=== PATIENT | male | born 1950 | race Caucasian/White ===

== ENCOUNTER 2022-06-01 07:41 | Observation (INO) | payer MEDICARE, SELFPAY ==
[2022-06-01] VITALS (65 sets, daily range): BP systolic 121–182; BP diastolic 74–131; PULSE 78–116; RESP 6–31; TEMP 36.5–36.6; O2SAT 85–97; BMI 36.6
--- NOTE | 2022-06-01 07:48 | ED_ITS ---
HPI - SOB/Dyspnea General: Chief Complaint: Shortness of Breath/Dyspnea Stated Complaint: SOB Time Seen by Provider: 06/01/22 07:43 Source: patient Mode of arrival: ambulatory History of Present Illness: HPI Narrative: 71-year-old male presents emergency room complaining shortness of breath. Discharge Plan Discharge Condition: Stable Coding Level of Care Code ED Nursing Faculty for Evelyn Zamora
--- NOTE | 2022-06-01 07:49 | ECG_ITS ---
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 Measurements Intervals [place] Rate: 157 P: [place]: QRS: -49 QRSD: 118 T: 73 QT: 309 QTc: 499 Interpretive Statements ATRIAL FIBRILLATION WITH RAPID VENTRICULAR RESPONSE WITH ABERRANT CONDUCTION OR VENTRICULAR PREMATURE COMPLEXES LEFT AXIS DEVIATION [QRS AXIS < -30] SEPTAL MYOCARDIAL INFARCTION , OF INDETERMINATE AGE [40+ ms Q WAVE IN V1/V2] CRITICAL TEST RESULT No previous ECG available for comparison Electronically Signed On 06-01-2022 8:04:16 CDT by Padmaja Johnson M.D. [id number]
--- NOTE | 2022-06-01 08:07 | W.ED.ARRPALP ---
HPI - Arrhythmia/Palpitations General: Chief Complaint: Shortness of Breath/Dyspnea Stated Complaint: SOB Time Seen by Provider: 06/01/22 07:43 Source: patient Mode of arrival: ambulatory Limitations: no limitations History of Present Illness: 71 year-old male presents emergency room complaining of rapid heart rate. Patient has some mild chest comfort but has no significant shortness of breath. Denies any fever sweats chills no orthopnea. Symptoms began yesterday. He is on anticoagulant for previous DVT he denies any known history of previous atrial fibrillation or other arrhythmia MD complaint: rapid heart beat and heart racing Onset (ago): day(s) (1) Duration: constant Severity: severe Context: occurred during rest Associated symptoms: Deny anxiety, cough, diaphoresis, muscle cramps, nausea, paresthesias, pre-syncope, sense of impending doom, short of breath, syncope or vomiting Review of Systems Const: Denies: diaphoresis ENMT: Denies: throat pain, ear or mastoid pain, nasal discharge or nasal congestion Card: Reports: chest pain, palpitations and irregular heart rhythm; Denies: edema, swelling of feet/ankles, syncope or pre-syncope Resp: Denies: dyspnea, productive cough or non-productive cough GI: Denies: abdominal pain, nausea or vomiting : Denies: flank pain, dysuria, urinary frequency or urinary urgency Musc: Denies: muscle cramps Skin/Breast: Denies: rash or pruritus Psych: Denies: anxiety PFSH ED PFSH: Medical History Cognitive decline Colon cancer Depression Diabetes mellitus type 2 in obese Gout Hyperlipidemia Hypertension Pulmonary embolism Surgical History History of cholecystectomy History of lung surgery Bronchogenic cyst removal History of tonsillectomy Family History Other Cancer Social History Smoking and tobacco status: never smoked Alcohol intake: never Physical Exam Const: COMMON NORMALS: no acute distress GENERAL APPEARANCE: cooperative and comfortable ORIENTATION/CONSCIOUSNESS: Yes awake, Yes oriented to person, Yes oriented to place and Yes oriented to time HENMT: COMMON NORMALS: normocephalic, atraumatic and hearing grossly normal bilaterally HEAD & SCALP: normocephalic and atraumatic Resp: COMMON NORMALS: normal respiratory effort, No retractions, No use of accessory muscles and clear to auscultation bilaterally AUSCULTATION: clear to auscultation bilaterally Cardio: COMMON NORMALS: No murmurs present (Cardio) RATE: tachycardic RHYTHM: abnormal rhythm irregularly irregular GI: COMMON NORMALS: Soft to palpation and No hepatosplenomegaly present AUSCULTATION: Yes normoactive bowel sounds PALPATION: Yes Soft to palpation, No Tenderness to palpation present (GI), No Guarding due to palpation present (GI) and Yes No hepatosplenomegaly present Extremity: COMMON NORMALS: normal to inspection, capillary refill normal, no clubbing, cyanosis or edema, no calf tenderness and no pedal edema Neuro: SENSORIUM/ORIENTATION: Yes oriented to person, Yes oriented to place and Yes oriented to time Skin: COMMON NORMALS: no rashes or lesions noted GENERAL SKIN EXAM: no rashes or lesions noted Course Vital Signs: Vital signs: Vital Signs Temperature 97.8 F 06/01/22 07:43 Pulse Rate 87 06/01/22 10:30 Respiratory Rate 27 H 06/01/22 10:30 Blood Pressure 145/90 06/01/22 10:30 Pulse Oximetry 95 06/01/22 10:30 Oxygen Delivery Me thod 06/01/22 09:45 Oxygen Flow Rate 1 06/01/22 09:45 MDM - Arrhythmia/Palpitations Medical Decision Making Initial troponin 29. He has minimal chest discomfort his symptoms are much better after his rate was decreased. We will go ahead and admit him discussed with hospitalist orders being written by the hospitalist. Medical Records I reviewed the patient's medical records. Lab Data I reviewed the patient's lab results. : 06/01/22 08:10 06/01/22 08:10 Radiology Impressions Chest X-Ray 06/01/22 09:09 IMPRESSION: No acute cardiopulmonary abnormality. Laboratory Results WBC 11.1 10^3/uL (4.0-10.0) H 06/01/22 08:10 RBC 5.48 10^6/uL (4.1-5.3) H 06/01/22 08:10 Hgb 15.6 g/dL (11.7-16.6) 06/01/22 08:10 Hct 47.5 % (42.0-52.0) 06/01/22 08:10 MCV 86.7 fl (80-94) 06/01/22 08:10 MCH 28.5 pg (28.0-34.0) 06/01/22 08:10 MCHC 32.8 g/dL (30.0-36.0) 06/01/22 08:10 RDW 13.7 % (12.1-15.1) 06/01/22 08:10 Plt Count 249 10^3/cmm (130-400) 06/01/22 08:10 MPV 11.6 fL (7.4-10.4) H 06/01/22 08:10 Neut % (Auto) 79.4 % 06/01/22 08:10 Lymph % (Auto) 13.2 % 06/01/22 08:10 [place] % (Auto) 5.8 % 06/01/22 08:10 Eos % (Auto) 0.8 % 06/01/22 08:10 Baso % (Auto) 0.4 % 06/01/22 08:10 Neut # (Auto) 8.82 10^3/uL (1.8-7.7) H 06/01/22 08:10 Lymph # (Auto) 1.5 10^3/uL (0.8-4.8) 06/01/22 08:10 [place] # (Auto) 0.7 10^3/uL (0.2-0.9) 06/01/22 08:10 Eos # (Auto) 0.1 10^3/uL (0.0-0.8) 06/01/22 08:10 Baso # (Auto) 0.1 10^3/uL (0.0-0.1) 06/01/22 08:10 Nucleated RBC % (auto) 0 % 06/01/22 08:10 Nucleated RBCs # 0.0 /100WBC 06/01/22 08:10 Sodium 141 mmol/L (136-145) 06/01/22 08:10 Potassium 3.7 mmol/L (3.5-5.1) 06/01/22 08:10 Chloride 103 mmol/L (98-107) 06/01/22 08:10 Carbon Dioxide 24 mmol/L (22-29) 06/01/22 08:10 Anion Gap 17.7 (5-19) 06/01/22 08:10 BUN 15 mg/dL (8-23) 06/01/22 08:10 Creatinine 0.9 mg/dL (0.7-1.2) 06/01/22 08:10 GFR Calculation 83.7 mL/min (90-130) L 06/01/22 08:10 Glucose 175 mg/dL (65-115) H 06/01/22 08:10 Estimat Average Glucose 146 06/01/22 08:10 Hemoglobin A1c 6.7 % (4.0-6.0) H 06/01/22 08:10 Calculated Osmolality 297 mOsm/kg (285-295) H 06/01/22 08:10 Calcium 9.2 mg/dL (8.5-10.5) 06/01/22 08:10 Magnesium 2.0 mg/dL (1.7-2.3) 06/01/22 08:10 Total Bilirubin 0.8 mg/dL (0.15-1.2) 06/01/22 08:10 AST 19 U/L (0-40) 06/01/22 08:10 ALT 19 U/L (0-41) 06/01/22 08:10 Alkaline Phosphatase 103 U/L (40-130) 06/01/22 08:10 Troponin T Baseline 29 ng/L (0-15) H 06/01/22 08:10 Troponin T 120 Minute 26.26 ng/L (0-15) H 06/01/22 10:09 Delta Troponin T -2.74 ABS# (0-10) L 06/01/22 10:09 Total Protein 6.7 g/dL (6.6-8.7) 06/01/22 08:10 Albumin 4.4 g/dL (3.5-5.2) 06/01/22 08:10 Globulin 2.3 g/dL (1.3-4.6) 06/01/22 08:10 TSH 4.76 uIU/mL (0.27-4.20) H 06/01/22 08:10 Discharge Plan Discharge Condition: Stable Prescriptions: No Action losartan 50 mg tablet 50 mg PO DAILY donepezil 10 mg tablet 10 mg PO BEDTIME potassium chloride 10 mEq tablet extended release 10 meq PO DAILY amlodipine 5 mg tablet 5 mg PO DAILY simvastatin 40 mg tablet 40 mg PO BEDTIME gemfibrozil 600 mg tablet 600 mg PO BID triamterene-hydrochlorothiazid 37.5-25 mg tablet 1 tab PO DAILY allopurinol 300 mg tablet 300 mg PO DAILY fluoxetine 20 mg capsule 20 mg PO DAILY Xarelto 20 mg tablet 20 mg PO BEDTIME [facility] For Men 50 Plus Vit Pack 1 packet PO QAM metformin 500 mg tablet See Rx Instructions .ROUTE .COMPLEX Rx Instructions: 1000mg po qam and 500mg po bedtime Coding Level of Care Code ED Certified Pharmacy Tech for Evelyn Zamora
[2022-06-01 08:16] LABS: Basophils # 0.1 10^3/uL (0.0-0.1); Basophils % 0.4 %; Eosinophils # 0.1 10^3/uL (0.0-0.8); Eosinophils % 0.8 %; Hematocrit 47.5 % (42.0-52.0); Hemoglobin 15.6 g/dL (11.7-16.6); Lymphocytes # 1.5 10^3/uL (0.8-4.8); Lymphocytes % 13.2 %; Mean Corpuscular HGB Conc 32.8 g/dL (30.0-36.0); Mean Corpuscular Hemoglobin 28.5 pg (28.0-34.0); Mean Corpuscular Volume 86.7 fl (80-94); Mean Platelet Volume 11.6 fL (7.4-10.4); Monocytes # 0.7 10^3/uL (0.2-0.9); Monocytes % 5.8 %; Neutrophils # 8.82 10^3/uL (1.8-7.7); Neutrophils % 79.4 %; Nucleated Red Blood Cells % 0 %; Platelet Count 249 10^3/cmm (130-400); Red Blood Count 5.48 10^6/uL (4.1-5.3); Red Cell Distribution Width 13.7 % (12.1-15.1); White Blood Count 11.1 10^3/uL (4.0-10.0)
[2022-06-01] MEDS: metoprolol tartrate 1 mg/1 mL SDV 5 mL 5 MG IVP (08:17)
[2022-06-01] MEDS: esmolol drip 2,500 MG/250 ML PREMIX 36.74 MG IV (08:18)
[2022-06-01 08:45] LABS: Troponin(5th) Baseline 29 ng/L (0-15)
[2022-06-01 08:53] LABS: Alanine Aminotransferase 19 U/L (0-41); Albumin Level 4.4 g/dL (3.5-5.2); Alkaline Phosphatase 103 U/L (40-130); Anion Gap 17.7 (5-19); Aspartate Amino Transferase 19 U/L (0-40); Blood Urea Nitrogen 15 mg/dL (8-23); Calcium 9.2 mg/dL (8.5-10.5); Carbon Dioxide 24 mmol/L (22-29); Chloride 103 mmol/L (98-107); Globulin 2.3 g/dL (1.3-4.6); Glomerular Filtration Rate 83.7 mL/min (90-130); Glucose 175 mg/dL (65-115); Osmolality Calculated 297 mOsm/kg (285-295); Potassium 3.7 mmol/L (3.5-5.1); Sodium 141 mmol/L (136-145); Thyroid Stimulating Hormone 4.76 uIU/mL (0.27-4.20); Total Bilirubin 0.8 mg/dL (0.15-1.2); Total Protein 6.7 g/dL (6.6-8.7)
--- NOTE | 2022-06-01 09:05 | PC.NURSE ---
Patient states that he is feeling better then compared to how he felt when he first arrived.
--- NOTE | 2022-06-01 09:09 | XRR_ITS ---
PROCEDURE INFORMATION: Exam: XR Chest Exam date and time: 06/01/2022 9:53 AM Age: 71 years old Clinical indication: Cough and dyspnea; Additional info: Dyspnea/cough TECHNIQUE: Imaging protocol: Radiologic exam of the chest. Views: 1 view. COMPARISON: CT chest w con* [id number] 12/16/2016 8:54 AM FINDINGS: Lungs: Unremarkable. No consolidation. Pleural spaces: Unremarkable. No pleural effusion. No pneumothorax. Heart/Mediastinum: The heart is normal for the AP projection. Bones/joints: Unremarkable. XR/XR chest 1V portable [id number] IMPRESSION: No acute cardiopulmonary abnormality.
--- NOTE | 2022-06-01 09:44 | P.HP_ITS ---
Providers/Chief Complaint Admitting Physician: Goyo Hooper MD Chief Complaint: SOB History of Present Illness Edwin Anderson is a 71 year old male who presents to the emergency department with complaints of shortness of breath since yesterday. He reports he was sitting around watching TV when he noticed palpitations, fast heart rate, and shortness of breath. Since that time he has been significantly short of breath, particularly when he lays down. While in the emergency department atrial fibrillation with rapid ventricular rate was noted, and he was placed on an esmolol drip after dose of metoprolol IV. He reports with decrease of his heart rate, he has noticed significantly less shortness of breath. He denies any c hest discomfort, recent fever or illness, exposure to COVID, previous history of atrial fibrillation or heart disease. He reports associated symptoms of some abdominal bloating. He denies any lower extremity edema. Review of Systems General: Reports: 10 or more systems reviewed and unremarkable except in HPI and below Const: Reports: fatigue; Denies: fever(s) or chills Eyes: Denies: change in vision ENMT: Denies: throat pain Card: Reports: palpitations and dyspnea on exertion; Denies: chest pain or swelling of feet/ankles Resp: Reports: dyspnea; Denies: productive cough or non-productive cough GI: Denies: abdominal pain : Denies: flank pain Musc: Denies: neck pain Skin/Breast: Denies: rash Neuro: Reports: confusion (Reports longstanding memory difficulties); Denies: headache(s) Psych: Denies: anxiety or depression Endo: Denies: polyuria Elijah/Lymph: Denies: easy bruising All/Imm: Denies: urticaria Medications/Allergies Home Medications Medication Instructions Recorded Confirmed Last Taken Type [facility] Plus Vit Pack 1 packet PO QAM 06/01/22 06/01/22 05/31/22 History allopurinol 300 mg tablet 300 mg PO DAILY 06/01/22 06/01/22 Unknown History amlodipine 5 mg tablet 5 mg PO DAILY 06/01/22 06/01/22 Unknown History donepezil 10 mg tablet 10 mg PO DAILY 06/01/22 06/01/22 Unknown History fluoxetine 20 mg capsule 20 mg PO DAILY 06/01/22 06/01/22 Unknown History gemfibrozil 600 mg tablet 600 mg PO BID 06/01/22 06/01/22 Unknown History losartan 50 mg tablet 50 mg PO DAILY 06/01/22 06/01/22 Unknown History metformin 500 mg tablet See Rx Instructions .Route .COMPLEX 06/01/22 06/01/22 05/31/22 History potassium chloride 10 mEq 10 meq PO DAILY 06/01/22 06/01/22 Unknown History tablet,extended release rivaroxaban 20 mg tablet (Xarelto) 20 mg PO QPM 06/01/22 06/01/22 05/31/22 His tory simvastatin 40 mg tablet 40 mg PO DAILY 06/01/22 06/01/22 Unknown History triamterene 37.5 1 tab PO DAILY 06/01/22 06/01/22 Unknown History mg-hydrochlorothiazide 25 mg tablet Allergies Allergy/AdvReac Type Severity Reaction Status Date / Time No Known Allergies Allergy Verified 06/01/22 09:48 PFSH Acute PFSH: Medical History (Updated 06/01/22 @ 09:56 by Goyo Hooper MD) Cognitive decline Colon cancer Depression Diabetes mellitus type 2 in obese Gout Hyperlipidemia Hypertension Pulmonary embolism Surgical History (Updated 06/01/22 @ 09:48 by Goyo Hooper MD) History of cholecystectomy History of lung surgery Bronchogenic cyst removal History of tonsillectomy Family History (Updated 06/01/22 @ 09:48 by Goyo Hooper MD) Other Cancer Social History (Updated 06/01/22 @ 09:48 by Goyo Hooper MD) Smoking and tobacco status: never smoked Alcohol intake: never Other PFSH information: Supplemental PFSH Information: Has family history of colon cancer. Reports he is up-to-date on his colonoscopies. No blood in his stool or black or tarry stools recently. Vitals/I&O/Wt Last Vital Signs Temp 97.8 F 06/01/22 07:43 Pulse 90 06/01/22 09:00 Resp 16 06/01/22 09:00 BP 178/117 06/01/22 09:00 Pulse Ox 95 06/01/22 09:00 O2 Del Method 06/01/22 09:00 O2 Flow Rate 1 06/01/22 09:00 05/31/22 06/01/22 06/01/22 22:59 06:59 14:59 Intake Total 34.291 / 34.291 Balance 34.291 / 34.291 Weight last 48 hrs Weight 122.47 kg Physical Exam Narrative: General exam was a conversant white male with mild respiratory distress with mild use of accessory muscles on 1 L of oxygen HEENT atraumatic normocephalic. Pupils equally round. Oropharynx clear. Neck is supple no lymphadenopathy or thyromegaly Cardiovascular irregular, irregular to 2/6 systolic murmur heard best at the right upper sternal border. Lungs clear to auscultation bilaterally. Diminished in the bases. No crackles Abdomen is soft obese nontender with positive bowel sounds. No obvious organomegaly exam was deferred Extremities no cyanosis clubbing or edema, cap refill brisk Skin no rash Neuro no obvious focal deficits. Data : 06/01/22 08:10 06/01/22 08:10 Other Labs: LFTs are within normal limit limits Initial troponin 29 TSH 4.76 Magnesium level is ordered Chest x-ray is ordered and pending EKG initial demonstrates atrial fibrillation with rapid ventricular rate, left axis deviation, septal and inferior Q waves. Repeat EKG demonstrates atrial fibrillation with a more controlled rate of 86, persistent left axis deviation. There is T wave flattening and inversion in V4 through 6 as well as inferiorly. Mild interventricular conduction delay with QRS duration of 127 A&P Assessment and plan (1) Atrial fibrillation: Patient presents with atrial fibrillation with rapid ventricular rate to the emergency department. Esmolol was initiated by the emergency department after a dose of IV metoprolol. 25 mg of metoprolol now, with plans of 50 mg twice daily starting tonight. If this fails to control rate, consider addition of calcium channel abi as needed to try to convert rate control to oral medications. Discontinue patient's home Norvasc. He is already on anticoagulation according to the patient. Await home medicine list to determine what this is. TSH has been checked and mildly elevated. Electrolytes are normal. Magnesium is pending. Observation currently, to telemetry Trend troponin Check echocardiogram He does not appear to clinically have congestive heart failure. I suspect his dyspnea will resolve with control of his rate. Status: Acute (2) Hypertension: Significant elevation of blood pressure on arrival. Adjust medications as indicated . Will likely hold Norvasc to allow addition of metoprolol. Status: Acute (3) Pulmonary embolism: Continue patient's home Xarelto Status: Acute (4) Diabetes mellitus type 2 in obese: Hold metformin Sliding scale insulin Consistent carb diet Status: Acute Plan Multiple other medical problems as outlined in past medical history Patient reports no CPR or intubation but would allow other treatments such as cardioversion, ICU admission. Therefore limited CODE STATUS. Attestations Medical Necessity Statement*: Will need less than 2 midnight stay for evaluation and treatment of atrial fibrillation with rapid ventricular rate. Coding Level of Care Code Acute Padded Box Sewer for [facility] Fwd Diagnoses Atrial fibrillation I48.91 Hypertension I10 Pulmonary embolism I26.99 Diabetes mellitus type 2 in obese E11.69; E66.9
--- NOTE | 2022-06-01 09:49 | ECG_ITS ---
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 Measurements Intervals [place] Rate: 86 P: [place]: QRS: -46 QRSD: 127 T: -32 QT: 409 QTc: 491 Interpretive Statements ATRIAL FIBRILLATION LEFT AXIS DEVIATION [QRS AXIS < -30] MODERATE INTRAVENTRICULAR CONDUCTION DELAY MODERATE T-WAVE ABNORMALITY, CONSIDER ANTEROLATERAL ISCHEMIA Compared to ECG 06/01/2022 08:03:17 Intraventricular conduction delay now present T-wave abnormality now present Possible ischemia now present Aberrant conduction of supraventricular beat(s) no longer present Ventricular premature complex(es) no longer present Myocardial infarct finding no longer present Electronically Signed On 06-02-2022 7:33:06 CDT by Padmaja Johnson M.D. [email or web address] [email or web address]/store/[id number] f
[2022-06-01 10:29] LABS: Estmated Average Glucose 146; Hemoglobin A1C 6.7 % (4.0-6.0)
[2022-06-01] MEDS: metoprolol tartrate 25 mg Tablet PO (10:35)
[2022-06-01 10:40] LABS: Troponin 5 2HR 26.26 ng/L (0-15)
[2022-06-01 10:45] LABS: Troponin 5 2HR Delta -2.74 ABS# (0-10)
--- NOTE | 2022-06-01 14:15 | ECG_ITS ---
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 Measurements Intervals [place] Rate: 87 P: [place]: QRS: -46 QRSD: 148 T: -51 QT: 417 QTc: 503 Interpretive Statements ATRIAL FIBRILLATION LEFT AXIS DEVIATION [QRS AXIS < -30] LEFT BUNDLE BRANCH BLOCK [120+ ms QRS DURATION, 80+ ms Q/S IN V1/V2, 85+ ms R IN I/aVL/V5/V6] Compared to ECG 06/01/2022 09:18:37 Left bundle-branch block now present Intraventricular conduction delay no longer present T-wave abnormality no longer present Possible ischemia no longer present Electronically Signed On 06-02-2022 7:32:01 CDT by Padmaja Johnson M.D. [id number]
[2022-06-01 14:31] LABS: Troponin 5 6HR 25.74 ng/L (0-15)
[2022-06-01 14:32] LABS: Troponin 5 6HR Delta -3.26 ng/L (0-12)
[2022-06-01 17:22] LABS: Add Urine Microscopic? YES; Bilirubin Urine 1+ (Negative); Blood Urine Neg (Negative); Glucose Urine UA Norm (Normal); Ketones Urine 1+ (Negative); Leukocyte Esterase Urine Trace (Negative); Nitrate Urine Negative (Negative); Protein Urine 3+ (Negative); Specific Gravity, Urine 1.025 (1.005-1.030); Urine Appearance Clear (CLEAR); Urine Color Dark Yellow (Yellow); Urobilinogen Urine 1 mg/dL (Negative); pH Urine 5 (5-7)
[2022-06-01 17:23] LABS: Bacteria Urine TRACE /hpf; Mucus Urine 1+ /hpf; WBC Urine 0-4 /hpf (0-5)
[2022-06-01 17:24] LABS: Add Urine Culture? No; Coarse Granular Casts Urine RARE /lpf; Fine Granular Casts Urine RARE /lpf; Hyaline Casts Urine 15-25 /lpf
[2022-06-01] MEDS: rivaroxaban 10 mg Tablet 20 MG PO (17:38)
[2022-06-01] MEDS: gemfibrozil 600 mg Tablet PO (17:38)
--- NOTE | 2022-06-01 18:29 | PC.NURSE ---
SHift SUmmary: Uneventful shift Patient arrived in ICU at approximately 1330. Vitals within normal limits (HR: 82, SPO2: 93, RR: 18, BP: 127/84, Temp: 97.1). PAtient is alert and oriented to person, place, time and situation. Current heart rhythm is AFIB, but rate is in the 80's and is well controlled. Patient has rested in bed for most of shift, but up to a chair to eat. Message to nurse regarding the heart rate is in the orders.
[2022-06-01] MEDS: potassium chloride ER 20 mEq Tablet 40 MEQ PO (19:03)
--- NOTE | 2022-06-01 19:37 | PC.NURSE ---
at 1841, patient had a 9 beat run of Vtach. Asymptomatic. Nurse alerted Dr mills and received an order for potassium. See mar.
[2022-06-01] MEDS: metoprolol tartrate 50 mg Tablet PO (20:08)
[2022-06-02] VITALS (33 sets, daily range): BP systolic 137–189; BP diastolic 84–119; PULSE 76–90; RESP 0–32; O2SAT 84–97
[2022-06-02] MEDS: hyDROXYzine 25 mg Capsule PO (02:54)
--- NOTE | 2022-06-02 03:00 | PC.NURSE ---
New Orders Received O2 sats noted to be low, when asked if patient wore oxygen at home during the night patient stated, I have a CPAP but I don't like the mask so I never wear it. Updated hospitalist regarding patient history, received orders for CPAP setup.
[2022-06-02 04:44] LABS: Alanine Aminotransferase 18 U/L (0-41); Albumin Level 3.8 g/dL (3.5-5.2); Alkaline Phosphatase 88 U/L (40-130); Aspartate Amino Transferase 20 U/L (0-40); Blood Urea Nitrogen 21 mg/dL (8-23); Calcium 9.3 mg/dL (8.5-10.5); Carbon Dioxide 27 mmol/L (22-29); Chloride 103 mmol/L (98-107); Globulin 2.7 g/dL (1.3-4.6); Glomerular Filtration Rate 66.4 mL/min (90-130); Glucose 152 mg/dL (65-115); Magnesium 2.1 mg/dL (1.7-2.3); Osmolality Calculated 294 mOsm/kg (285-295); Sodium 139 mmol/L (136-145); Total Bilirubin 0.7 mg/dL (0.15-1.2); Total Protein 6.5 g/dL (6.6-8.7)
[2022-06-02 04:49] LABS: Basophils # 0.1 10^3/uL (0.0-0.1); Basophils % 0.6 %; Eosinophils # 0.1 10^3/uL (0.0-0.8); Eosinophils % 1.3 %; Hematocrit 47.1 % (42.0-52.0); Hemoglobin 14.3 g/dL (11.7-16.6); Lymphocytes # 1.9 10^3/uL (0.8-4.8); Lymphocytes % 17.7 %; Mean Corpuscular HGB Conc 30.4 g/dL (30.0-36.0); Mean Corpuscular Hemoglobin 28.5 pg (28.0-34.0); Mean Platelet Volume 11.8 fL (7.4-10.4); Monocytes # 0.7 10^3/uL (0.2-0.9); Monocytes % 6.2 %; Neutrophils # 7.86 10^3/uL (1.8-7.7); Neutrophils % 73.7 %; Nucleated Red Blood Cells % 0 %; Platelet Count 207 10^3/cmm (130-400); Red Blood Count 5.01 10^6/uL (4.1-5.3); Red Cell Distribution Width 14.2 % (12.1-15.1); White Blood Count 10.7 10^3/uL (4.0-10.0)
--- NOTE | 2022-06-02 05:56 | PC.NURSE ---
Shift Note Frequent safety and comfort rounds continue. Orders and/or nursing care completed as indicated. Patient monitored for response to intervention and treatment(s). Education provided includes CPAP machine. Patient verbalized understanding of teaching. Patient had an uneventful shift, remains alert/oriented x4 on CPAP 28% FiO2. No wounds or skin issues noted at this time. No reports of pain overnight. Will continue to monitor.
--- NOTE | 2022-06-02 07:30 | USCV_ITS ---
Edwin Anderson Age: 71 Gender: M : 1950 Exam Date: 06/02/2022 08:02 Ordering Phys: Goyo Hooper MD Technologist: NELY Exam Location: [facility] [place] Indication: A FIB BP: 148 / 84 HR: 81 Rhythm: Atrial fibrillation Technical Quality: Poor MEASUREMENTS (Male / Female) Normal Values 2D ECHO LVOT Diameter 2.0 cm LV Ejection Fraction MOD 2C 41.3 % LV Ejection Fraction 2C AL 38.1 % LA Diameter 4.3 cm LA Width 2.9 cm LA Height 5.0 cm RA Width 4.3 cm RA Height 4.2 cm Aorta at Sinotubular Diameter 3.2 cm IVC Diameter 3.2 cm M-MODE Aortic Annulus Diameter 4.2 cm LA Ao Ratio MM 0.9 MV E Point Septal Separation 1.6 cm DOPPLER AV Peak Velocity 298.3 cm/s LVOT Peak Velocity 74.0 cm/s AV Area Cont Eq vti 0.7 cm squared AV Area Cont Eq pk 0.8 cm squared MV Peak Velocity 135.0 cm/s MV Area PHT 4.0 cm squared MV E' Velocity 76.0 cm/s Mitral E to MV E' Ratio 15.5 Mitral E to LV E' Lateral Ratio 12.7 Mitral E to LV E' Septal Ratio 19.9 TR Peak Velocity 255.6 cm/s TR Peak Gradient 26.1 mmHg TR Mean Velocity 193.5 cm/s TR Mean Gradient 16.0 mmHg TR Velocity Time Integral 79.8 cm TV Peak E Velocity 43.0 cm/s Right Atrial Pressure 15.0 mmHg Pulmonary Artery Systolic Pressu 41.1 mmHg PV Peak Velocity 46.0 cm/s RV Acceleration Time 0.1 s RV Ejection Time 0.3 s RV AcT/ET 0.5 FINDINGS Left Ventricle Poor quality exam with the apical view the only useful view. Lower limit of normal LV function. Left ventricular ejection fraction is estimated at 50 %. No regional wall motion abnormalities. Mild left ventricular hypertrophy. Rhythm precludes evaluation of diastolic function. Right Ventricle Right ventricle not well visualized. Normal right ventricular size and systolic function. Mild pulmonary hypertension, RVSP 41.1 mmHg. Right Atrium Right atrium not well visualized. RA pressure 15mmHg Left Atrium Mildly increased left atrial size. Mitral Valve Structurally normal mitral valve. Mild mitral valve regurgitation. Aortic Valve Thickened aortic valve. Moderate aortic valve calcification. Moderate to severe aortic valve stenosis, mean gradient 22.3 mmHg, SAMUEL 0.66 cm squared. Gradient more consistent with moderate . Mild to moderate AI Tricuspid Valve Structurally normal tricuspid valve. Mild tricuspid valve regurgitation. Pulmonic Valve Pulmonic valve not well visualized. Pericardium Normal pericardium without effusion. Aorta Normal ascending aorta dimension. IVC Mildly dilated IVC. Does not collapse normally with respiration. RA pressure 15mmHg. CONCLUSIONS Poor quality exam with the apical view the only useful view. Lower limit of normal LV function. Left ventricular ejection fraction is estimated at 50 %. No regional wall motion abnormalities. Mild left ventricular hypertrophy. Rhythm precludes evaluation of diastolic function. Right ventricle not well visualized. Normal right ventricular size and systolic function. Mild pulmonary hypertension, RVSP 41.1 mmHg. Right atrium not well visualized. RA pressure 15mmHg. Mildly increased left atrial size. Structurally normal mitral valve. Mild mitral valve regurgitation. Thickened aortic valve. Moderate aortic valve calcification. Moderate to severe aortic valve stenosis, mean gradient 22.3 mmHg, SAMUEL 0.66 cm squared. Gradient more consistent with moderate . Mild to moderate AI. Mildly dilated IVC. Does not collapse normally with respiration. RA pressure 15mmHg. Dr. Amando Gross MD (Electronically Signed) Final Date: 02 June 2022 09:17 S
[2022-06-02] MEDS: amlodipine 5 mg Tablet PO (08:33)
[2022-06-02] MEDS: donepezil 5 MG Tablet 10 MG PO (08:33)
[2022-06-02] MEDS: atorvastatin 40 mg Tablet 20 MG PO (08:34)
[2022-06-02] MEDS: gemfibrozil 600 mg Tablet PO (08:34)
[2022-06-02] MEDS: metoprolol tartrate 50 mg Tablet PO (08:34)
[2022-06-02] MEDS: allopurinol 300 mg Tablet PO (08:35)
[2022-06-02] MEDS: losartan 50 mg Tablet PO (08:35)
[2022-06-02] MEDS: fluoxetine 20 mg Capsule PO (08:35)
[2022-06-02] MEDS: FUROsemide 10 mg/mL SDV 4mL 40 MG IVP (08:36)
[2022-06-02] MEDS: potassium chloride ER 10 mEq Tablet PO (08:36)
--- NOTE | 2022-06-02 12:32 | PC.CHAP ---
Pastoral Care Encounter/Spiritual Assessment Type of Contact [] Declined office director visit [] Patient/Family/Request visit [] Outpatient visit [] Follow-up visit [] Physician referral [] Code/Alert [x] Routine visit [] Staff referral [] Actively dying [x] Patient sleeping [] Family support [] [] Out of room [] Palliative care [] [] Receiving care in room [] Pre-surgical visit [] Trauma [] Long length of stay [x] ICU visit [] Other: Relational/Emotional Strength [] Patient feels connected with others/family/visitors/staff [] Distress [] Loneliness/isolation [] Abandonment Spirituality of Patient [] Person of Maru [] Attends Roman Catholic of their Maru [] Believes in Prayer [] Reads Bible or Yazdanism materials [] There are Spiritual issues to be addressed [employer] Developer Interventions [x] Prayer [] Active listening [] Non-anxious presence [] Spiritual/emotional support [] Crisis/trauma care [] Spiritual counseling [] Bereavement support [] Provided bereavement packet [] Provided Bible/devotional materials [] Provided toy/stuffed animal, coloring book to patient or family member [] Provided Communion [] Anointing/[place] [] Salvation [x] Completed spiritual assessment [] Other: Impact on Illness or Injury [] Angry [] Fearful [] Anxious [] Often cries [] Exhaustion [] Unable to work [] Unable to attend confucianism [] Unable to walk/stand [] Unable to read [] Unable to drive [] Unable to eat/drink [] Unable to sleep [] Unable to be with family [] Patient intubated [] Other: Summary Time spent with patient
--- NOTE | 2022-06-02 14:12 | PM.DCS ---
Discharge Providers Date of Admission: 06/01/22 09:59 Date of Discharge: June 02, 2022 Attending Provider at Admission: Goyo Hooper MD Attending Provider at Discharge: Goyo Hooper MD Diagnoses at Discharge Discharge Diagnosis (1) Atrial fibrillation: Status: Acute (2) Hypertension: Status: Acute (3) Pulmonary embolism: Status: Acute (4) Diabetes mellitus type 2 in obese: Status: Acute Reason for Visit Reason for Visit: SOB Hospital Course Hospital Course Edwin is a 71-year-old white male who presented to the emergency department short of breath, and found to be in atrial fibrillation with rapid ventricular rate. He was placed on an esmolol drip, and eventually titrated over to p.o. medication. Blood pressure was found to be high so ultimately none of his medicines were stopped. Troponin was slightly high but did not have a significant delta. Echocardiogram was obtained which demonstrated slightly low EF at 50%, and moderate to severe aortic stenosis, likely moderate per flow. He had 1 very short run of nonsustained ventricular tachycardia 89 beats on admission. Potassium was supplemented and he had no recurrence. He did receive 1 dose of IV Lasix for fluid overload associated with his systolic function, aortic disease, or arrhythmia which improved his shortness of breath greatly. TSH was checked and slightly elevated at 4.76. With his significant improvement, it was thought he could be discharged home on June 02. An outpatient nuclear stress test will be arranged for follow-up of his presentation with dyspnea, short episode of nonsustained ventricular rhythm, new onset atrial fibrillation considering his risk factors. He will discontinue his triamterene hydrochlorothiazide and go on Lasix 40 mg daily. Metoprolol was added for rhythm control. He is already on Xarelto for past history of pulmonary embolism. He will follow-up with his primary care provider in 3 to 5 days, and cardiology in 7 to 10 days as a new patient. Physical Exam Narrative: General exam no apparent distress Neck is supple no lymphadenopathy thyromegaly Cardiovascular irregular, irregular with a soft 2/6 systolic murmur Lungs clear no wheezing or crackles Abdomen is soft nontender positive bowel sounds Extremities no cyanosis clubbing or edema. Skin no rash Discharge Data Studies Completed and Pending Completed Studies During Hospitalization Category Date Time Status XR chest 1V portable [id number] Stat Exams 06/01/22 09:09 Completed CV. echo complete* [id number] Routine Ultrasound 06/02/22 07:30 Completed Radiology Impressions Chest X-Ray 06/01/22 09:09 IMPRESSION: No acute cardiopulmonary abnormality. Laboratory Results WBC 10.7 10^3/uL (4.0-10.0) H 06/02/22 03:32 RBC 5.01 10^6/uL (4.1-5.3) 06/02/22 03:32 Hgb 14.3 g/dL (11.7-16.6) 06/02/22 03:32 Hct 47.1 % (42.0-52.0) 06/02/22 03:32 MCV 94.0 fl (80-94) D 06/02/22 03:32 MCH 28.5 pg (28.0-34.0) 06/02/22 03:32 MCHC 30.4 g/dL (30.0-36.0) D 06/02/22 03:32 RDW 14.2 % (12.1-15.1) 06/02/22 03:32 Plt Count 207 10^3/cmm (130-400) 06/02/22 03:32 MPV 11.8 fL (7.4-10.4) H 06/02/22 03:32 Neut % (Auto) 73.7 % 06/02/22 03:32 Lymph % (Auto) 17.7 % 06/02/22 03:32 [place] % (Auto) 6.2 % 06/02/22 03:32 Eos % (Auto) 1.3 % 06/02/22 03:32 Baso % (Auto) 0.6 % 06/02/22 03:32 Neut # (Auto) 7.86 10^3/uL (1.8-7.7) H 06/02/22 03:32 Lymph # (Auto) 1.9 10^3/uL (0.8-4.8) 06/02/22 03:32 [place] # (Auto) 0.7 10^3/uL (0.2-0.9) 06/02/22 03:32 Eos # (Auto) 0.1 10^3/uL (0.0-0.8) 06/02/22 03:32 Baso # (Auto) 0.1 10^3/uL (0.0-0.1) 06/02/22 03:32 Nucleated RBC % (auto) 0 % 06/02/22 03:32 Nucleated RBCs # 0.0 /100WBC 06/02/22 03:32 Sodium 139 mmol/L (136-145) 06/02/22 03:32 Potassium 4.0 mmol/L (3.5-5.1) 06/02/22 03:32 Chloride 103 mmol/L (98-107) 06/02/22 03:32 Carbon Dioxide 27 mmol/L (22-29) 06/02/22 03:32 Anion Gap 13.0 (5-19) 06/02/22 03:32 BUN 21 mg/dL (8-23) 06/02/22 03:32 Creatinine 1.1 mg/dL (0.7-1.2) 06/02/22 03:32 GFR Calculation 66.4 mL/min (90-130) L 06/02/22 03:32 Glucose 152 mg/dL (65-115) H 06/02/22 03:32 Estimat Average Glucose 146 06/01/22 08:10 Hemoglobin A1c 6.7 % (4.0-6.0) H 06/01/22 08:10 Calculated Osmolality 294 mOsm/kg (285-295) 06/02/22 03:32 Calcium 9.3 mg/dL (8.5-10.5) 06/02/22 03:32 Magnesium 2.1 mg/dL (1.7-2.3) 06/02/22 03:32 Total Bilirubin 0.7 mg/dL (0.15-1.2) 06/02/22 03:32 AST 20 U/L (0-40) 06/02/22 03:32 ALT 18 U/L (0-41) 06/02/22 03:32 Alkaline Phosphatase 88 U/L (40-130) 06/02/22 03:32 Troponin T Baseline 29 ng/L (0-15) H 06/01/22 08:10 Troponin T 120 Minute 26.26 ng/L (0-15) H 06/01/22 10:09 Delta Troponin T -2.74 ABS# (0-10) L 06/01/22 10:09 Troponin T Hi Sens 6Hr 25.74 ng/L (0-15) H 06/01/22 13:50 Troponin T Hi Sens 6Hr Delta -3.26 ng/L (0-12) L 06/01/22 13:50 Total Protein 6.5 g/dL (6.6-8.7) L 06/02/22 03:32 Albumin 3.8 g/dL (3.5-5.2) 06/02/22 03:32 Globulin 2.7 g/dL (1.3-4.6) 06/02/22 03:32 TSH 4.76 uIU/mL (0.27-4.20) H 06/01/22 08:10 Urine Color Dark yellow (Yellow) 06/01/22 16:20 Urine Appearance Clear (CLEAR) 06/01/22 16:20 Urine pH 5 (5-7) 06/01/22 16:20 Ur Specific [place] 1.025 (1.005-1.030) 06/01/22 16:20 Urine Protein 3+ (Negative) H 06/01/22 16:20 Urine Glucose (UA) Norm (Normal) 06/01/22 16:20 Urine Ketones 1+ (Negative) H 06/01/22 16:20 Urine Blood Neg (Negative) 06/01/22 16:20 Urine Nitrate Negative (Negative) 06/01/22 16:20 Urine Bilirubin 1+ (Negative) H 06/01/22 16:20 Urine Urobilinogen 1 mg/dL (Negative) H 06/01/22 16:20 Ur Leukocyte Esterase Trace (Negative) H 06/01/22 16:20 Urine RBC None /hpf (0-2) 06/01/22 16:20 Urine WBC 0-4 /hpf (0-5) H 06/01/22 16:20 Ur Squamous Epith Cells None /hpf (0-5) 06/01/22 16:20 Amorphous Sediment Not Reportable 06/01/22 16:20 Urine Bacteria Trace /hpf (NONE) 06/01/22 16:20 Hyaline Casts 15-25 /lpf H 06/01/22 16:20 Fine Granular Casts Rare /lpf 06/01/22 16:20 Coarse Granular Casts Rare /lpf 06/01/22 16:20 Urine Mucus 1+ /hpf 06/01/22 16:20 Vitals Last Vital Signs Temp 97.7 F 06/01/22 20:00 Pulse 81 06/02/22 12:00 Resp 14 06/02/22 12:00 BP 151/86 06/02/22 12:00 Pulse Ox 92 06/02/22 12:00 O2 Del Method 06/02/22 12:00 O2 Flow Rate 1 06/01/22 09:45 FiO2 28 06/02/22 06:00 Discharge Plan Discharge Patient Disposition: Home Condition: Stable Prescriptions: New furosemide [Lasix] 40 mg tablet 40 mg PO DAILY Qty: 30 0RF metoprolol tartrate 50 mg Tablet 50 mg PO BID@0900,2100 Qty: 60 0RF Continued losartan 50 mg tablet 50 mg PO DAILY donepezil 10 mg tablet 10 mg PO BEDTIME potassium chloride 10 mEq tablet extended release 10 meq PO DAILY amlodipine 5 mg tablet 5 mg PO DAILY simvastatin 40 mg tablet 40 mg PO BEDTIME gemfibrozil 600 mg tablet 600 mg PO BID allopurinol 300 mg tablet 300 mg PO DAILY fluoxetine 20 mg capsule 20 mg PO DAILY Xarelto 20 mg tablet 20 mg PO BEDTIME Gnc For Men 50 Plus Vit Pack 1 packet PO QAM metformin 500 mg tablet See Rx Instructions .ROUTE .COMPLEX Rx Instructions: 1000mg po qam and 500mg po bedtime Discontinued triamterene-hydrochlorothiazid 37.5-25 mg tablet 1 tab PO DAILY Discharge Orders: Discharge Order (Routine); Ordered 06/02/22 Ordered By: Goyo Hooper Other Ambulatory Orders: Sestamibi Stress Test Request (Routine) Timeframe: 1 Week Facility: [facility] - Location: [facility] Ordered By: Goyo Hooper Referrals: Radha Hooper MD [Staff Physician] - 4-7 days Kendal Galindo FNP [Nurse Practitioner] - 7-10 days (euniceo ana atrial fibrillation, stress test) Discharge Diet: Cardiac and Diabetic Discharge Activity: Increase activity as tolerated Patient Instructions: Opioid Safety Activity Restrictions/Additional Instructions: Take all medicines as prescribed Follow-up with primary care provider 3 to 5 days Follow-up with cardiology, after nuclear stress test Return for any worsening. Discharge Attestations Time Spent in Discharge Care*: greater than 30 min Quality Metrics Clinical Quality Measures [ No reported AMI, CVA or VTE this stay] Coding Level of Care Code Acute Chg FW DC note Diagnoses Atrial fibrillation I48.91 Hypertension I10 Pulmonary embolism I26.99 Diabetes mellitus type 2 in obese E11.69; E66.9
--- NOTE | 2022-06-02 16:41 | PC.NURSE ---
Discharge instructions and appointments given to patient. IV removed. Patient and belongings taken to private vehicle by this nurse.
== END 2022-06-02 16:10 | disposition home or self-care (01) ==
LOC: ER 09:54 → ICU 13:10
PROVIDERS: Admitting Provider Internal Medicine; Emergency Provider Family Medicine; Visit Provider Internal Medicine
DX: I48.91 Unspecified atrial fibrillation (principal); I10 Essential (primary) hypertension; I26.99 Other pulmonary embolism without acute cor pulmonale; E11.69 Type 2 diabetes mellitus with other specified complication; E66.9 Obesity, unspecified; Z68.36 Body mass index [BMI] 36.0-36.9, adult; R07.9 Chest pain, unspecified; Z79.84 Long term (current) use of oral hypoglycemic drugs; Z85.038 Personal history of other malignant neoplasm of large intestine; E78.5 Hyperlipidemia, unspecified
CPT/HCPCS: 36415; 71045; 80053; 81001; 83036; 83735; 84443; 84484; 85025; 93005; 93306; 94660; 96365; 96366; 96375; 99285; G0378; J1940; J3490

== ENCOUNTER 2022-06-08 06:41 | Outpatient (CLI) | payer MEDICARE, OTHER, SELFPAY ==
--- NOTE | 2022-06-08 | ECG_ITS ---
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 Interpretive Statements NAME OF STUDY: LEXISCAN SESTAMIBI STRESS TEST INDICATION: Dyspnea, PROCEDURE: At the baseline, the EKG revealed atrial fibrillation with rapid ventricular rate of 106 bpm. Poor R wave progression. Diffuse nonspecific T wave changes. Left axis deviation. Possible old anteroseptal LA. Nonspecific IVCD.. The baseline heart was 106 bpm with a blood pressue of 168/108 mm of Hg Lexiscan was infused over a period of 20 seconds. A total of 0.4 milligrams of Lexiscan was infused. The stress phase was continued for a total of 5 minutes. Heart rate at the end of the stress phase was 106 bpm with a blood pressure 159/108 mm of Hg. The EKG at the peak infusion revealed some nonspecific T wave changes. Occasional PVCs also were noted with a peak infusion.. Sestamibi was injected 20 seconds after the Lexiscan infusion. Heart rate at the end of the recovery phase was 96 bpm with a blood pressure of 170/106 mm of Hg. CONCLUSION: 1. No significant EKG changes with the LexiScan infusion 2. No LexiScan induced chest pain or cardiac arrhythmia 3. Normal blood pressure and heart rate response 4. Sestamibi/sestamibi perfusion scan pending; see separate report. Electronically Signed On 06-10-2022 17:46:48 CDT by Hiram Apple M.D. [id number]
[2022-06-08 07:49] VITALS: BMI 36.6
--- NOTE | 2022-06-08 07:51 | NMCV_ITS ---
NM torito perf SPECT r/s* [id number] Edwin Anderson Age: 71 Gender: M : 1950 Exam Date: 06/08/2022 07:51 Ordering Phys: Radha Hooper MD Technologist: JUNIOR Khalil Exam Location: [facility] Indications: CHEST PAIN STRESS TEST Please see separate stress test report in [facility] for full findings IMAGE PROTOCOL Rest/Stress 1 Exercise Day Radiopharmaceutical Dose (mCi) Administration Site Administered by Rest: Tc-99m 10.8 IV JUNIOR Zaragoza Sestamibi Stress:Tc-99m 33.0 IV JUNIOR Zaragoza Sestamibi Rest: 08-Jun-2022 60 Discovery 630 Stress: 08-Jun-2022 30 Discovery 630 0.4mg Lexiscan. Images obtained in supine and prone position. SPECT RESULTS Technical Quality: Excellent Raw Data Analysis: Normal Image Corrections: No attenuation or motion correction applied Summed Stress Score: 6 Summed Rest Score: 7 Summed Difference Score: 0 PERFUSION FINDINGS Moderately decreased uptake was noted in the apical inferior, lateral and LV apex. No significant reversibility was noted in these regions. FUNCTIONAL RESULTS (calculated via Gated SPECT) Stress Image LV EF (%): 38 Stress EDV (mL):221 TID: 1.08 Stress ESV (mL):137 FUNCTIONAL FINDINGS: Segmental wall motion analysis revealed diffuse hypokinesia of the left ventricle. IMPRESSIONS 1. Myocardial perfusion imaging revealing an area of persistent decreased tracer uptake in the apical region, suggestive of myocardial scarring versus attenuation artifacts. 2. Diminished LV ejection fraction of 38%. 3. LV wall motion analysis revealing diffuse hypokinesia of the left ventricle. 4. Moderately dilated LV cavity with an end-systolic volume of 137 mL Low probability for coronary ischemia, based on the above findings Dr Hiram Apple MD FACC (Electronically Signed) Final Date: 08 June 2022 13:30 S
[2022-06-08] MEDS: regadenoson 0.4 Mg/5 ml Syringe IVP (09:02)
[2022-06-08 10:16] VITALS: BP 173/106; PULSE 92
== END 2022-06-08 06:42 | disposition home or self-care (01) ==
LOC: CDL 06:44
PROVIDERS: Visit Provider Family Medicine
DX: R06.00 Dyspnea, unspecified (principal); R07.9 Chest pain, unspecified
CPT/HCPCS: 78452; 93017; A9500; J2785

== ENCOUNTER → 2022-06-10 12:21 | Outpatient (BNVA) | payer MEDICARE, OTHER, SELFPAY | PROVIDERS: PCP Family Medicine; Visit Provider Internal Medicine | DX: I48.91 Unspecified atrial fibrillation (principal); I26.99 Other pulmonary embolism without acute cor pulmonale; I10 Essential (primary) hypertension; E11.69 Type 2 diabetes mellitus with other specified complication; E66.9 Obesity, unspecified; Z68.36 Body mass index [BMI] 36.0-36.9, adult | CPT/HCPCS: 99204 ==

== ENCOUNTER 2022-06-13 11:01 | Inpatient (IN) | payer MEDICARE, OTHER, SELFPAY ==
[2022-06-13] VITALS (22 sets, daily range): BP systolic 144–196; BP diastolic 89–116; PULSE 75–91; RESP 13–29; TEMP 36.6–36.7; O2SAT 89–98
--- NOTE | 2022-06-13 11:17 | ED_ITS ---
HPI - SOB/Dyspnea General: Chief Complaint: Shortness of Breath/Dyspnea Stated Complaint: SOB Time Seen by Provider: 06/13/22 11:17 History of Present Illness: HPI Narrative: Mr. Aguilar is a 71-year-old gentleman with history of hypertension, obesity, history of pulmonary embolism, diabetes, and recent diagnosis of atrial fibrillation on Xarelto who presents to the emergency department due to shortness of breath. Onset of symptoms was yesterday and since that time has been progressively worsening. He describes inability to lie flat due to shortness of breath as well as marked decreased exertional tolerance where he becomes out of breath after walking only 10 to 15 feet. Denies associated infectious symptoms. Does occasionally have intermittent substernal chest pressure. Overall course of symptoms has worsened. Intensity is moderate to severe. Denies history of underlying lung disease or tobaccoism. No other specific changes in health, exacerbating, or alleviating factors identified. Pertinent past history: other Onset (ago): day(s) Timing: progressively worsening Severity: moderate Exacerbating factors: lying flat and exertion Known history of: PE Associated symptoms: Reports chest pain Review of Systems General: Reports: 10 or more systems reviewed and unremarkable except in HPI and below Card: Reports: chest pain PFSH ED PFSH: Medical History (Updated 06/17/22 @ 00:02 by ) Aortic stenosis Cognitive decline Colon cancer Depression Diabetes mellitus type 2 in obese Gout Hyperlipidemia Hypertension JOSIE (obstructive sleep apnea) Pulmonary embolism Surgical History History of cholecystectomy History of lung surgery Bronchogenic cyst removal History of tonsillectomy Family History Other Cancer Social History Smoking and tobacco status: never smoked Alcohol intake: never Physical Exam Const: COMMON NORMALS: alert GENERAL APPEARANCE: cooperative and well developed HENMT: COMMON NORMALS: normocephalic and atraumatic HEAD & SCALP: normocephalic and atraumatic Eye: COMMON NORMALS: conjunctivae normal CONJUNCTIVA: Yes conjunctivae normal SCLERA: sclerae normal Neck/C-Spine: COMMON NORMALS: supple GENERAL: Yes trachea midline Resp: EFFORT & INSPECTION: Yes tachypneic AUSCULTATION: diminished lung sounds Cardio: COMMON NORMALS: regular rate RATE: regular rate RHYTHM: abnormal rhythm irregularly irregular GI: COMMON NORMALS: Soft to palpation PALPATION: Yes Soft to palpation and No Tenderness to palpation present (GI) Extremity: GENERAL: Yes normal exam except as noted and No edema Neuro: COMMON NORMALS: moves all extremities SENSORIUM/ORIENTATION: Yes alert and No Orientation impaired Psych: COMMON NORMALS: mental status grossly normal and Normal thought process present THOUGHT PROCESS: Normal thought process present Course ED course: - Patient was seen and evaluated by me at bedside - Patient placed on cardiac monitors, IV access obtained - Initial evaluation notable for exam as above - Labs and xrays personally interpreted by me. EKG notable for atrial fibrillation, interventricular conduction delay, no STEMI. - Labs notable for no leukocytosis, normal hemoglobin. Metabolic panel without acute electrolyte derangement. Delta troponin negative. BNP elevated. Age- adjusted D-dimer negative. COVID-negative. - Imaging notable for no lobar consolidation or pneumothorax. -Lasix given. - Upon serial reexamination after treatment the patient was not significantly improved. - Based on patient history, evaluation, and testing as interpreted the most likely cause of the patient's condition is acute on bicarb failure with evidence of volume overload and marked dyspnea on exertion with supplemental oxygen use. - The results of ED evaluation were discussed with the patient including plan for admission due to requirement for level of care not available if discharged to prevent significant worsening/deterioration. - Admitting service was contacted and Dr Paredes with the hospitalist service agreed to admit the patient - Patient was admitted without further deterioration or significant events. Note: Click bubbles or prepopulated garza in note writing are used for assistance with data collection and billing and are inherently more limited than narrative and other text portions of this note. Please use narrative for additional clinical history and defer to narrative/free test for any case of contradictory information. If information appears in only free text or click bubble it should be considered present or absent as reported. Please contact note senior medical writer for clarifications of clinical information or contradictory information. MDM is a brief summary, contradictory or erroneous seeming information should be clarified and full note should be reviewed. Vital Signs: Vital signs: Vital Signs Temperature 98.2 F 06/16/22 11:39 Pulse Rate 68 06/16/22 11:39 Respiratory Rate 18 06/16/22 11:39 Blood Pressure 122/71 06/16/22 11:39 Pulse Oximetry 96 06/16/22 11:39 Oxygen Delivery Me thod 06/16/22 11:39 Oxygen Flow Rate 2 06/15/22 12:59 Fraction of Inspir ed Oxygen 21 06/15/22 13:18 MDM - SOB/Dyspnea Medical Decision Making 71-year-old gentleman with recent diagnosis of A. fib presenting with worsening respiratory symptoms. Patient describes significant symptoms and has evidence of heart failure exacerbation. Admitted for further management. Medical Records I reviewed the patient's medical records. Lab Data I reviewed the patient's lab results. : 06/16/22 04:43 06/16/22 04:43 Labs/Radiology: Radiology Impressions Chest X-Ray 06/13/22 11:31 IMPRESSION: 1. Low lung volumes 2. No acute findings. 3. Metallic surgical clips right axillary soft tissues Venous Duplex 06/13/22 16:58 IMPRESSION: No sonographic evidence of deep vein thrombosis. Laboratory Results WBC 7.3 10^3/uL (4.0-10.0) 06/14/22 03:30 RBC 4.84 10^6/uL (4.1-5.3) 06/14/22 03:30 Hgb 13.4 g/dL (11.7-16.6) 06/14/22 03:30 Hct 43.0 % (42.0-52.0) 06/14/22 03:30 MCV 88.8 fl (80-94) 06/14/22 03:30 MCH 27.7 pg (28.0-34.0) L 06/14/22 03:30 MCHC 31.2 g/dL (30.0-36.0) 06/14/22 03:30 RDW 14.1 % (12.1-15.1) 06/14/22 03:30 Plt Count 199 10^3/cmm (130-400) 06/14/22 03:30 MPV 12.3 fL (7.4-10.4) H 06/14/22 03:30 Neut % (Auto) 60.8 % 06/14/22 03:30 Lymph % (Auto) 27.7 % 06/14/22 03:30 [place] % (Auto) 8.8 % 06/14/22 03:30 Eos % (Auto) 1.6 % 06/14/22 03:30 Baso % (Auto) 0.7 % 06/14/22 03:30 Neut # (Auto) 4.43 10^3/uL (1.8-7.7) 06/14/22 03:30 Lymph # (Auto) 2.0 10^3/uL (0.8-4.8) 06/14/22 03:30 [place] # (Auto) 0.6 10^3/uL (0.2-0.9) 06/14/22 03:30 Eos # (Auto) 0.1 10^3/uL (0.0-0.8) 06/14/22 03:30 Baso # (Auto) 0.1 10^3/uL (0.0-0.1) 06/14/22 03:30 Nucleated RBC % (auto) 0 % 06/14/22 03:30 Nucleated RBCs # 0.0 /100WBC 06/14/22 03:30 D-Dimer 0.61 ug/mIFEU (0-0.59) H 06/13/22 11:59 Sodium 143 mmol/L (136-145) 06/14/22 03:30 Potassium 3.0 mmol/L (3.5-5.1) L 06/14/22 03:30 Chloride 104 mmol/L (98-107) 06/14/22 03:30 Carbon Dioxide 27 mmol/L (22-29) 06/14/22 03:30 Anion Gap 15.0 (5-19) 06/14/22 03:30 BUN 24 mg/dL (8-23) H 06/14/22 03:30 Creatinine 1.2 mg/dL (0.7-1.2) 06/14/22 03:30 GFR Calculation 60.0 mL/min (90-130) L 06/14/22 03:30 Glucose 128 mg/dL (65-115) H 06/14/22 03:30 POC Glucose 136 mg/dL (70-110) H 06/14/22 11:16 Calculated Osmolality 302 mOsm/kg (285-295) H 06/14/22 03:30 Calcium 9.3 mg/dL (8.5-10.5) 06/14/22 03:30 Total Bilirubin 0.5 mg/dL (0.15-1.2) 06/14/22 03:30 AST 15 U/L (0-40) 06/14/22 03:30 ALT 16 U/L (0-41) 06/14/22 03:30 Alkaline Phosphatase 72 U/L (40-130) 06/14/22 03:30 Troponin T Baseline 21 ng/L (0-15) H 06/13/22 11:59 Troponin T 120 Minute 18.58 ng/L (0-15) H 06/13/22 13:58 Delta Troponin T -2.42 ABS# (0-10) L 06/13/22 13:58 Troponin T Hi Sens 6Hr 22.00 ng/L (0-15) H 06/13/22 18:10 Troponin T Hi Sens 6Hr Delta 1.00 ng/L (0-12) 06/13/22 18:10 NT-Pro-B Natriuret Pep 3208 pg/mL (0-125) H 06/13/22 11:59 Total Protein 6.1 g/dL (6.6-8.7) L 06/14/22 03:30 Albumin 3.7 g/dL (3.5-5.2) 06/14/22 03:30 Globulin 2.4 g/dL (1.3-4.6) 06/14/22 03:30 SARS-CoV-2 Ag (Rapid) Negative (Negative) 06/13/22 12:07 Discharge Plan Discharge Patient Disposition: Placed in Observation Admit Provider: Errol Paredes Clinical Impression: Acute on chronic congestive heart failure, Hypoxemia, Dyspnea on minimal exertion, Orthopnea Coding Level of Care Code ED Social Services Manager for Chg Fwd Exam Comprehensive
--- NOTE | 2022-06-13 11:31 | ECG_ITS ---
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 Measurements Intervals [place] Rate: 81 P: MA: QRS: 114 QRSD: 129 T: 90 QT: 398 QTc: 464 Interpretive Statements ATRIAL FIBRILLATION WITH ABERRANT CONDUCTION OR VENTRICULAR PREMATURE COMPLEXES LEFT POSTERIOR FASCICULAR BLOCK [QRS AXIS > 109, INFERIOR Q] POSSIBLE ANTERIOR MYOCARDIAL INFARCTION , OF INDETERMINATE AGE [30 ms Q WAVE IN V3/V4, OR R < 0.2 mV IN V4] Compared to ECG 06/01/2022 14:15:43 Ventricular premature complex(es) now present Aberrant conduction of supraventricular beat(s) now present Left posterior fascicular block now present Myocardial infarct finding now present Left-axis deviation no longer present Left bundle-branch block no longer present Electronically Signed On 06-13-2022 13:12:28 CDT by Padmaja Johnson M.D. [id number]
--- NOTE | 2022-06-13 11:31 | XRR_ITS ---
PROCEDURE INFORMATION: Exam: XR Chest Exam date and time: 06/13/2022 11:44 AM Age: 71 years old Clinical indication: Shortness of breath; Additional info: SOB TECHNIQUE: Imaging protocol: Radiologic exam of the chest. Views: 1 view. COMPARISON: CR XR chest 1V portable [id number] 06/01/2022 9:53 AM FINDINGS: Lungs: Low lung volumes seen. The lungs are otherwise clear No consolidation. Pleural spaces: Unremarkable. No pleural effusion. No pneumothorax. Heart/Mediastinum: Unremarkable. No cardiomegaly. Bones/joints: Unremarkable. Soft tissues: Metallic surgical clips right axillary soft tissues. Other findings: Comparison to prior examination similar findings are seen XR/XR chest 1V portable [id number] IMPRESSION: 1. Low lung volumes 2. No acute findings. 3. Metallic surgical clips right axillary soft tissues
[2022-06-13 12:06] LABS: Basophils # 0.1 10^3/uL (0.0-0.1); Basophils % 0.7 %; Eosinophils # 0.1 10^3/uL (0.0-0.8); Eosinophils % 1.3 %; Hematocrit 43.2 % (42.0-52.0); Hemoglobin 13.7 g/dL (11.7-16.6); Lymphocytes # 1.8 10^3/uL (0.8-4.8); Lymphocytes % 24.2 %; Mean Corpuscular HGB Conc 31.7 g/dL (30.0-36.0); Mean Corpuscular Volume 88.2 fl (80-94); Mean Platelet Volume 11.8 fL (7.4-10.4); Monocytes # 0.5 10^3/uL (0.2-0.9); Monocytes % 6.9 %; Neutrophils % 66.5 %; Nucleated Red Blood Cells % 0 %; Platelet Count 236 10^3/cmm (130-400); Red Cell Distribution Width 14.1 % (12.1-15.1); White Blood Count 7.5 10^3/uL (4.0-10.0)
[2022-06-13 12:19] LABS: D Dimer 0.61 ug/mIFEU (0-0.59)
[2022-06-13 12:29] LABS: Alanine Aminotransferase 19 U/L (0-41); Albumin Level 3.7 g/dL (3.5-5.2); Alkaline Phosphatase 74 U/L (40-130); Anion Gap 15.6 (5-19); Aspartate Amino Transferase 20 U/L (0-40); Blood Urea Nitrogen 21 mg/dL (8-23); Calcium 8.7 mg/dL (8.5-10.5); Carbon Dioxide 25 mmol/L (22-29); Chloride 103 mmol/L (98-107); Globulin 2.6 g/dL (1.3-4.6); Glucose 133 mg/dL (65-115); Osmolality Calculated 295 mOsm/kg (285-295); Potassium 3.6 mmol/L (3.5-5.1); Sodium 140 mmol/L (136-145); Total Bilirubin 0.5 mg/dL (0.15-1.2); Total Protein 6.3 g/dL (6.6-8.7); Troponin(5th) Baseline 21 ng/L (0-15)
[2022-06-13 12:34] LABS: SARS Covid-2 Antigen Negative (Negative)
[2022-06-13 12:38] LABS: NT Pro B Type Natriuretic Pept 3208 pg/mL (0-125)
--- NOTE | 2022-06-13 13:31 | ECG_ITS ---
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 Measurements Intervals [place] Rate: 82 P: [place]: QRS: -60 QRSD: 120 T: -36 QT: 401 QTc: 469 Interpretive Statements ATRIAL FIBRILLATION LEFT ANTERIOR FASCICULAR BLOCK [QRS AXIS <= -45, QR IN I, RS IN II] POSSIBLE ANTERIOR MYOCARDIAL INFARCTION , OF INDETERMINATE AGE Compared to ECG 06/01/2022 14:15:43 Left anterior fascicular block now present Myocardial infarct finding now present Left-axis deviation no longer present Left bundle-branch block no longer present Electronically Signed On 06-14-2022 13:17:57 CDT by Padmaja Johnson M.D. [id number]
[2022-06-13] MEDS: FUROsemide 10 mg/mL SDV 4mL 40 MG IVP (13:58)
[2022-06-13] MEDS: potassium chloride ER 20 mEq Tablet 40 MEQ PO (13:58)
[2022-06-13 14:29] LABS: Troponin 5 2HR 18.58 ng/L (0-15)
[2022-06-13 14:32] LABS: Troponin 5 2HR Delta -2.42 ABS# (0-10)
--- NOTE | 2022-06-13 15:26 | PC.NURSE ---
Report called DESTINI Johns
--- NOTE | 2022-06-13 15:51 | PC.NURSE ---
Arrived from ED, transferred self to be
--- NOTE | 2022-06-13 16:31 | PM.HP ---
Providers/Chief Complaint Admitting Physician: Errol Paredes Primary Care Provider: Radha Hooper MD Chief Complaint: SOB History of Present Illness Pleasant 71-year-old gentleman with remote history of PE, on Xarelto, DM2, HTN, mild memory impairment, shortly recently admitted for cyst management of atrial fibrillation with finding of mildly reduced/low with normal ejection fraction 50% on echocardiogram, mild LV hypokinesis, moderate, moderate to severe, possibly moderate aortic stenosis, mildly dilated IVC not collapsing normally with respiration, subsequently also assessed with stress testing with noted area of persistent tracer uptake in apical region suggestive of myocardial scarring versus attenuation artifact LV wall motion revealing diffuse hypokinesia of left ventricle, moderately dilated LV cavity and systolic volume 137 mL, low probability for coronary ischemia. He reports he has in discussion with cardiology regarding further plans for additional assessment of aortic stenosis, with plans for coronary angiogram, after the cath also DENIS cardioversion as since going into A. fib he has been feeling worse. He presents to the hospital currently due to a several days being worse in terms of shortness of breath especially with exertion, shortness of breath with lying down, worse ankle edema, and noticed abdominal edema/distention, regained weight rapidly which she has been trying to lose. He denies chest pain or pressure. He states he has not missed any doses of medications. His helps him at home with his medicines. He has JOSIE, tried to wear CPAP, but states has had difficult time synchronizing with the machine, and has not been wearing it recently. Review of Systems Const: Denies: fever(s), chills, body aches or malaise Eyes: Denies: change in vision, eye discomfort or eye redness ENMT: Denies: throat pain, oral sores or ear or mastoid pain Card: Reports: edema, dyspnea on exertion, orthopnea and other (abdominal edema/distention); Denies: chest pain or pre-syncope Resp: Denies: dyspnea, productive cough, change in phlegm color or hemoptysis GI: Denies: abdominal pain, nausea, vomiting, diarrhea, constipation, hematochezia or melena : Denies: flank pain, difficulty urinating, urinary frequency or hematuria Musc: Denies: back pain, joint swelling or joint redness Skin/Breast: Denies: rash or new lesions Neuro: Denies: headache(s), numbness in extremities, weakness in extremities, dizziness, confusion or seizure-like activity Endo: Denies: polyuria or polydipsia Elijah/Lymph: Denies: easy bleeding or tender lymph nodes All/Imm: Denies: urticaria or tongue swelling Medications/Allergies Home Medications Medication Instructions Recorded Confirmed Last Taken Type allopurinol 300 mg tablet 300 mg PO DAILY 06/01/22 06/13/22 06/13/22 History amlodipine 5 mg tablet 5 mg PO DAILY 06/01/22 06/13/22 06/13/22 History donepezil 10 mg tablet 10 mg PO BEDTIME 06/01/22 06/13/22 06/12/22 History fluoxetine 20 mg capsule 20 mg PO DAILY 06/01/22 06/13/22 06/13/22 History gemfibrozil 600 mg tablet 600 mg PO BID 06/01/22 06/13/22 06/13/22 History losartan 50 mg tablet 50 mg PO DAILY 06/01/22 06/13/22 06/13/22 History metformin 500 mg tablet See Rx Instructions .Route .COMPLEX 06/01/22 06/13/22 06/13/22 History multivitamin 1 tab PO DAILY ##0 06/01/22 06/13/22 06/13/22 History potassium chloride 10 mEq 10 meq PO DAILY 06/01/22 06/13/22 06/13/22 History tablet,extended release rivaroxaban 20 mg tablet (Xarelto) 20 mg PO BEDTIME 06/01/22 06/13/22 06/12/22 History simvastatin 40 mg tablet 40 mg PO BEDTIME 06/01/22 06/13/22 06/12/22 History furosemide 40 mg tablet (Lasix) 40 mg PO DAILY #30 tabs 06/02/22 06/13/22 06/13/22 Rx metoprolol tartrate 50 mg tablet 50 mg PO BID@0900,2100 #60 tabs 06/02/22 06/13/22 06/13/22 Rx Allergies Allergy/AdvReac Type Severity Reaction Status Date / Time No Known Allergies Allergy Verified 06/10/22 12:49 PFSH Acute PFSH: Medical History (Updated 06/13/22 @ 16:51 by Errol Paredes MD) Aortic stenosis Cognitive decline Colon cancer Depression Diabetes mellitus type 2 in obese Gout Hyperlipidemia Hypertension JOSIE (obstructive sleep apnea) Pulmonary embolism Surgical History History of cholecystectomy History of lung surgery Bronchogenic cyst removal History of tonsillectomy Family History Other Cancer Social History Smoking and tobacco status: never smoked Alcohol intake: never Vitals/I&O/Wt Last Vital Signs Temp 98.1 F 06/13/22 11:13 Pulse 87 06/13/22 15:21 Resp 20 H 06/13/22 15:21 BP 147/89 06/13/22 15:21 Pulse Ox 95 06/13/22 15:21 O2 Del Method 06/13/22 16:13 Physical Exam Const: COMMON NORMALS: patient oriented x3 and alert GENERAL APPEARANCE: cooperative ORIENTATION/CONSCIOUSNESS: Yes awake HENMT: COMMON NORMALS: oropharynx normal Neck/C-Spine: COMMON NORMALS: no JVD Resp: COMMON NORMALS: normal respiratory effort and clear to auscultation bilaterally AUSCULTATION: clear to auscultation bilaterally and diminished lung sounds (mildly) bilateral in the lower lung garza Cardio: COMMON NORMALS: no JVD, regular rhythm, S1 normal heart sound present, S2 normal heart sound present and No murmurs present (Cardio) RHYTHM: regular rhythm HEART SOUNDS: S1 normal heart sound present and S2 normal heart sound present GI: COMMON NORMALS: Normal to inspection, nondistended, normoactive bowel sounds present, Soft to palpation and non-tender PALPATION: Yes Soft to palpation OTHER: Mild edema of abdominal wall Extremity: COMMON NORMALS: no joint enlargement GENERAL: Yes edema (2+) Neuro: COMMON NORMALS: patient oriented x3 and moves all extremities SENSORIUM/ORIENTATION: Yes alert Skin: COMMON NORMALS: no rashes or lesions noted GENERAL SKIN EXAM: no rashes or lesions noted Data : 06/13/22 11:59 06/13/22 11:59 A&P Assessment and plan (1) Acute on chronic congestive heart failure: Acute systolic and diastolic congestive heart failure. continue IV Lasix, monitor I&O. Renal function. Cardiac diet. Monitor blood pressures with aortic stenosis. CPAP for JOSIE, attempt to adjust to help him tolerate. Status: Acute (2) Dyspnea on minimal exertion: Secondary to above, possibly with contribution from moderate to severe aortic stenosis. Possible contribution from atrial fibrillation as well. Status: Acute (3) Orthopnea: Due to above. Status: Acute (4) Atrial fibrillation: Continue metoprolol, Xarelto. On outpatient side Plans were for DENIS cardioversion after angiogram given he appears to been symptomatic with fatigue ever since being in A. fib. Given decompensation of CHF, worsened exertional intolerance, perhaps this may need to take place while he is here after some improvement in CHF. Status: Acute (5) Aortic stenosis: Moderate to severe by recent echocardiogram. Plans have been for assessment by angiogram subsequently also DENIS cardioversion given symptomatic A. fib with fatigue. Given decompensation of CHF, perhaps this may need to be arranged while he is here after CHF is better compensated. Status: Acute (6) JOSIE (obstructive sleep apnea): Has not been able tolerate his CPAP well at home. Possibly contributing to his acute CHF exacerbation, dyspnea on exertion. We will see if it is possible to help adjust CPAP to help him tolerate it better. Status: Acute Plan Lower extremity edema: Right greater than left, will assess by duplex ultrasound. Mild cognitive dysfunction/mild memory impairment Depression DM2 HTN HLD Remote history of PE Attestations Medical Necessity Statement*: Place in observation for additional assessment management of acute systolic and congestive heart failure, in setting of moderate to severe aortic stenosis, symptomatic atrial fibrillation, JOSIE intolerant of CPAP. Coding Level of Care Code Acute Wireless Sales Expert for Evelyn Zamora Diagnoses Acute on chronic congestive heart failure I50.9 Dyspnea on minimal exertion R06.09 Orthopnea R06.01 Atrial fibrillation I48.91 Aortic stenosis I35.0 JOSIE (obstructive sleep apnea) G47.33
--- NOTE | 2022-06-13 16:58 | USR_ITS ---
PROCEDURE INFORMATION: Exam: US Duplex Lower Extremity Veins, Bilateral Exam date and time: 06/13/2022 6:58 PM Age: 71 years old Clinical indication: Edema, localized; Lower extremity, bilateral; Additional info: Edema r>l, HX pe, assess for dvt TECHNIQUE: Imaging protocol: Real-time Duplex ultrasound of the bilateral extremities with 2-D baez scale, color Doppler flow and spectral waveform analysis with image documentation. Complete exam focused on the bilateral lower extremity veins. COMPARISON: US SoftTissue/Extrem Lmt [id number] 04/04/2018 3:44 PM FINDINGS: Right deep veins: Unremarkable. The common femoral, femoral, proximal profunda femoral, popliteal, posterior tibial and peroneal veins are patent without thrombus. Normal Doppler waveforms. Normal compressibility and/or augmentation response. Right superficial veins: Saphenofemoral junction is patent without thrombus. Left deep veins: Unremarkable. The common femoral, femoral, proximal profunda femoral, popliteal, posterior tibial and peroneal veins are patent without thrombus. Normal Doppler waveforms. Normal compressibility and/or augmentation response. Left superficial veins: Saphenofemoral junction is patent without thrombus. Soft tissues: Unremarkable. US/[place] [id number] IMPRESSION: No sonographic evidence of deep vein thrombosis.
--- NOTE | 2022-06-13 17:55 | ECG_ITS ---
[facility] Test Date: 2022-06-13 Pat Name: Edwin Anderson Department: Room: ICU10 Gender: Male Certified Pedorthotist: : 1950 Requested By: Jason Rosen Order Number: [id number] Lakeisha MD: Padmaja Johnson M.D. Measurements Intervals [place] Rate: 79 P: [place]: QRS: -28 QRSD: 125 T: -30 QT: 422 QTc: 484 Interpretive Statements ATRIAL FIBRILLATION POSSIBLE ANTERIOR MYOCARDIAL INFARCTION , OF INDETERMINATE AGE INFERIOR MYOCARDIAL INFARCTION , OF INDETERMINATE AGE MODERATE T-WAVE ABNORMALITY, CONSIDER LATERAL ISCHEMIA Compared to ECG 06/13/2022 11:35:40 T-wave abnormality now present Possible ischemia now present Ventricular premature complex(es) no longer present Aberrant conduction of supraventricular beat(s) no longer present Left posterior fascicular block no longer present Myocardial infarct finding still present Electronically Signed On 06-14-2022 13:15:32 CDT by Padmaja Johnson M.D. [id number]
[2022-06-13] MEDS: atorvastatin 40 mg Tablet 20 MG PO (20:17)
[2022-06-13] MEDS: metoprolol tartrate 50 mg Tablet PO (20:18)
[2022-06-13] MEDS: donepezil 5 MG Tablet 10 MG PO (20:18)
[2022-06-13] MEDS: rivaroxaban 10 mg Tablet 20 MG PO (20:19)
[2022-06-13 21:21] LABS: Glucose Point of Care 156 mg/dL (70-110)
[2022-06-13] MEDS: hyDRALAzine 20 mg/mL INJ 1 mL 10 MG IVP (23:57)
[2022-06-14] VITALS (40 sets, daily range): BP systolic 130–219; BP diastolic 77–124; PULSE 72–99; RESP 12–26; TEMP 35.7–36.7; O2SAT 82–98; BMI 36.4
--- NOTE | 2022-06-14 | PC.NURSE ---
Physician Communication Patient's blood pressure 185/99 with previous pressures ranging from 158-185 systolic and 96-116 diastolic. Additionally, patient has a history of DM II with a last known blood sugar of 156; no insulin or glucose mediating medication ordered. Dr. Benites contacted; order received for hydralazine 10 mg IVP once and for insulin sliding scale beginning AM of 06/14/22. Medication administered per DEC.
[2022-06-14 05:02] LABS: Basophils # 0.1 10^3/uL (0.0-0.1); Basophils % 0.7 %; Eosinophils # 0.1 10^3/uL (0.0-0.8); Eosinophils % 1.6 %; Hemoglobin 13.4 g/dL (11.7-16.6); Lymphocytes % 27.7 %; Mean Corpuscular HGB Conc 31.2 g/dL (30.0-36.0); Mean Corpuscular Hemoglobin 27.7 pg (28.0-34.0); Mean Corpuscular Volume 88.8 fl (80-94); Mean Platelet Volume 12.3 fL (7.4-10.4); Monocytes # 0.6 10^3/uL (0.2-0.9); Monocytes % 8.8 %; Neutrophils # 4.43 10^3/uL (1.8-7.7); Neutrophils % 60.8 %; Nucleated Red Blood Cells % 0 %; Platelet Count 199 10^3/cmm (130-400); Red Blood Count 4.84 10^6/uL (4.1-5.3); Red Cell Distribution Width 14.1 % (12.1-15.1); White Blood Count 7.3 10^3/uL (4.0-10.0)
[2022-06-14 05:39] LABS: Albumin Level 3.7 g/dL (3.5-5.2); Alkaline Phosphatase 72 U/L (40-130); Aspartate Amino Transferase 15 U/L (0-40); Blood Urea Nitrogen 24 mg/dL (8-23); Calcium 9.3 mg/dL (8.5-10.5); Carbon Dioxide 27 mmol/L (22-29); Chloride 104 mmol/L (98-107); Globulin 2.4 g/dL (1.3-4.6); Glucose 128 mg/dL (65-115); Osmolality Calculated 302 mOsm/kg (285-295); Sodium 143 mmol/L (136-145); Total Bilirubin 0.5 mg/dL (0.15-1.2); Total Protein 6.1 g/dL (6.6-8.7)
[2022-06-14 06:04] LABS: Alanine Aminotransferase 16 U/L (0-41)
[2022-06-14] MEDS: FUROsemide 10 mg/mL SDV 4mL 40 MG IVP (06:38)
--- NOTE | 2022-06-14 07:27 | PC.NURSE ---
Addendum entered by Whitney Acevedo RN 06/14/22 07:29: Occurred at 0400. Original Note: Temperature Patient's temperature 96.3 axillary. Temperature retaken multiple times with no temperature able to read. Multiple warm blankets placed on patient and room temperature increased. To monitor.
[2022-06-14 07:29] LABS: Glucose Point of Care 141 mg/dL (70-110)
[2022-06-14] MEDS: insulin lispro 100 unit/1 mL SUBCUT ×2 (08:17→17:34)
[2022-06-14] MEDS: allopurinol 300 mg Tablet PO (08:18)
[2022-06-14] MEDS: fluoxetine 20 mg Capsule PO (08:18)
[2022-06-14] MEDS: metoprolol tartrate 50 mg Tablet PO ×2 (08:18→20:38)
[2022-06-14] MEDS: potassium chloride ER 10 mEq Tablet PO (08:18)
[2022-06-14] MEDS: potassium chloride ER 20 mEq Tablet 40 MEQ PO (08:59)
[2022-06-14 11:26] LABS: Glucose Point of Care 136 mg/dL (70-110)
[2022-06-14] MEDS: amlodipine 5 mg Tablet PO (12:59)
--- NOTE | 2022-06-14 13:34 | P.PN_ITS ---
Subjective Subjective: Today he reports feeling much better. He no longer has dyspnea as he did yesterday. Swelling is looking better. He has not ambulated very much, but has gone to the commode, and tolerated that much better than before. Vitals/I&O/Wt Last Vital Signs Temp 97.8 F 06/14/22 06:00 Pulse 80 06/14/22 11:46 Resp 22 H 06/14/22 07:32 BP 136/96 06/14/22 08:18 Pulse Ox 96 06/14/22 11:46 O2 Del Method 06/14/22 04:00 O2 Flow Rate 2 06/14/22 04:00 FiO2 21 06/13/22 23:28 06/13/22 06/14/22 06/14/22 22:59 06:59 14:59 Intake Total 250 / 250 300 / 300 Output Total 725 / 725 300 / 1025 250 / 250 Balance -475 / -475 -300 / -775 50 / 50 Weight last 48 hrs Weight 122.016 kg Physical Exam Const: COMMON NORMALS: patient oriented x3 and alert GENERAL APPEARANCE: cooperative ORIENTATION/CONSCIOUSNESS: Yes awake HENMT: COMMON NORMALS: oropharynx normal Neck/C-Spine: COMMON NORMALS: no JVD Resp: COMMON NORMALS: normal respiratory effort and clear to auscultation bilaterally AUSCULTATION: clear to auscultation bilaterally and diminished lung sounds (mildly) bilateral in the lower lung garza Cardio: COMMON NORMALS: no JVD, regular rhythm, S1 normal heart sound present, S2 normal heart sound present and No murmurs present (Cardio) RHYTHM: regular rhythm HEART SOUNDS: S1 normal heart sound present and S2 normal heart sound present GI: COMMON NORMALS: Normal to inspection, nondistended, normoactive bowel sounds present, Soft to palpation and non-tender PALPATION: Yes Soft to palpation OTHER: Mild edema of abdominal wall Extremity: COMMON NORMALS: no joint enlargement GENERAL: Yes edema (1+) Neuro: COMMON NORMALS: patient oriented x3 and moves all extremities SENSORIUM/ORIENTATION: Yes alert Skin: COMMON NORMALS: no rashes or lesions noted GENERAL SKIN EXAM: no rashes or lesions noted Data : 06/14/22 03:30 06/14/22 03:30 A&P Assessment and plan (1) Acute on chronic congestive heart failure: Improving. He is in negative balance. Subjectively he is feeling better. Edema appears to be improving. We will attempt to transition him to oral diuretic, 40 mg p.o. Lasix twice daily. Replace potassium. As he has tolerated diuresis so far and blood pressure is hypertensive, or restart his home amlodipine. He was tried on CPAP overnight. Discussed with RT, we will further try to see if settings can be optimized tonight. Otherwise may need repeat titration sleep study. monitor I&O. Renal function. Cardiac diet. Monitor blood pressures with aortic stenosis. Status: Acute (2) Dyspnea on minimal exertion: Improving with treatment of acute systolic and diastolic CHF. Secondary to above, possibly with contribution from moderate to severe aortic stenosis. Possible contribution from atrial fibrillation as well. Status: Acute (3) Orthopnea: Due to above. Status: Acute (4) Atrial fibrillation: Continue metoprolol, Xarelto. On outpatient side Plans were for DENIS cardioversion after angiogram given he appears to been symptomatic with fatigue ever since being in A. fib. Given decompensation of CHF, worsened exertional intolerance As he is improving, if continues to do better, likely may be moved to resume follow-up as planned on outpatient side. Status: Acute (5) Aortic stenosis: Moderate to severe by recent echocardiogram. Plans have been for assessment by angiogram subsequently also DENIS cardioversion given symptomatic A. fib with fatigue. As he is improving, if continues to do better, likely may be moved to resume follow-up as planned on outpatient side. Status: Acute (6) JOSIE (obstructive sleep apnea): Has not been able tolerate his CPAP well at home. Possibly contributing to his acute CHF exacerbation, dyspnea on exertion. We will see if it is possible to help adjust CPAP to help him tolerate it better. Status: Acute Plan Lower extremity edema: Right greater than left, no DVT by duplex ultrasound. 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
--- NOTE | 2022-06-14 13:41 | PC.NURSE ---
This nurse notified Dr. Mehta that bp has been sustaining 180s to 190 systolic, HCP ordered home dose of amlodipine
[2022-06-14] MEDS: FUROsemide 40 mg Tablet PO (16:08)
[2022-06-14 16:20] LABS: Glucose Point of Care 150 mg/dL (70-110)
--- NOTE | 2022-06-14 16:45 | PC.NURSE ---
Increased work of breathing noted, c/o SOB, crackles through out lungs. Dr. Garcia gave t.o. for 20 mg IVP lasix x1 now
[2022-06-14] MEDS: FUROsemide 10 mg/mL SDV 2mL 20 MG IVP (16:54)
--- NOTE | 2022-06-14 17:49 | PC.NURSE ---
Patient informed this nurse she will not take a statin, she is aware of why she needs one but refuses to take them. Dr. Mehta was notified
[2022-06-14 20:20] LABS: Glucose Point of Care 170 mg/dL (70-110)
[2022-06-14] MEDS: donepezil 5 MG Tablet 10 MG PO (20:38)
[2022-06-14] MEDS: rivaroxaban 10 mg Tablet 20 MG PO (20:38)
[2022-06-14] MEDS: atorvastatin 40 mg Tablet 20 MG PO (20:38)
--- NOTE | 2022-06-14 22:18 | PC.NURSE ---
2114 CPAP applied 2144 pt refusing CPAP at this time; 3 L of O2 via NC reapplied
[2022-06-15] VITALS (21 sets, daily range): BP systolic 136–169; BP diastolic 70–97; PULSE 72–87; RESP 11–35; TEMP 36.1–36.9; O2SAT 87–96
[2022-06-15 04:17] LABS: Basophils # 0.1 10^3/uL (0.0-0.1); Basophils % 0.7 %; Eosinophils # 0.2 10^3/uL (0.0-0.8); Hematocrit 45.4 % (42.0-52.0); Hemoglobin 14.2 g/dL (11.7-16.6); Lymphocytes # 2.2 10^3/uL (0.8-4.8); Lymphocytes % 27.7 %; Mean Corpuscular HGB Conc 31.3 g/dL (30.0-36.0); Mean Corpuscular Hemoglobin 27.7 pg (28.0-34.0); Mean Corpuscular Volume 88.7 fl (80-94); Mean Platelet Volume 11.8 fL (7.4-10.4); Monocytes # 0.7 10^3/uL (0.2-0.9); Monocytes % 8.6 %; Neutrophils # 4.89 10^3/uL (1.8-7.7); Neutrophils % 60.6 %; Nucleated Red Blood Cells % 0 %; Platelet Count 201 10^3/cmm (130-400); Red Blood Count 5.12 10^6/uL (4.1-5.3); White Blood Count 8.1 10^3/uL (4.0-10.0)
[2022-06-15 04:39] LABS: Alanine Aminotransferase 17 U/L (0-41); Alkaline Phosphatase 76 U/L (40-130); Anion Gap 13.4 (5-19); Aspartate Amino Transferase 18 U/L (0-40); Blood Urea Nitrogen 27 mg/dL (8-23); Calcium 9.3 mg/dL (8.5-10.5); Carbon Dioxide 30 mmol/L (22-29); Chloride 102 mmol/L (98-107); Globulin 2.6 g/dL (1.3-4.6); Glomerular Filtration Rate 54.7 mL/min (90-130); Glucose 134 mg/dL (65-115); Osmolality Calculated 301 mOsm/kg (285-295); Potassium 3.4 mmol/L (3.5-5.1); Sodium 142 mmol/L (136-145); Total Bilirubin 0.6 mg/dL (0.15-1.2); Total Protein 6.6 g/dL (6.6-8.7)
[2022-06-15] MEDS: FUROsemide 10 mg/mL SDV 4mL 40 MG IVP (06:27)
[2022-06-15] MEDS: potassium chloride ER 20 mEq Tablet 40 MEQ PO (06:27)
[2022-06-15 07:26] LABS: Glucose Point of Care 155 mg/dL (70-110)
[2022-06-15] MEDS: fluoxetine 20 mg Capsule PO (08:01)
[2022-06-15] MEDS: amlodipine 5 mg Tablet PO (08:02)
[2022-06-15] MEDS: allopurinol 300 mg Tablet PO (08:02)
[2022-06-15] MEDS: metoprolol tartrate 50 mg Tablet PO ×2 (08:02→20:11)
[2022-06-15] MEDS: potassium chloride ER 10 mEq Tablet PO (08:05)
[2022-06-15] MEDS: insulin lispro 100 unit/1 mL SUBCUT ×2 (08:06→12:08)
[2022-06-15] MEDS: potassium chloride oral liq 20 mEq/15 mL UDC PO (09:00)
--- NOTE | 2022-06-15 10:25 | PC.CHAP ---
Pastoral Care Encounter/Spiritual Assessment Type of Contact [] Declined anglesmith visit [] Patient/Family/Request visit [] Outpatient visit [] Follow-up visit [] Physician referral [] Code/Alert [x] Routine visit [] Staff referral [] Actively dying [] Patient sleeping [] Family support [] [] Out of room [] Palliative care [] [] Receiving care in room [] Pre-surgical visit [] Trauma [] Long length of stay [x] ICU visit [] Other: Relational/Emotional Strength [] Patient feels connected with others/family/visitors/staff [] Distress [] Loneliness/isolation [] Abandonment Spirituality of Patient [] Person of Maru [] Attends Taoism of their Maru [] Believes in Prayer [] Reads Bible or Zoroastrianism materials [] There are Spiritual issues to be addressed 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 Interventions [x] Prayer [] Active listening [] Non-anxious presence [] Spiritual/emotional support [] Crisis/trauma care [] Spiritual counseling [] Bereavement support [] Provided bereavement packet [] Provided Bible/devotional materials [] Provided toy/stuffed animal, coloring book to patient or family member [] Provided Communion [] Anointing/[place] [] Salvation [x] Completed spiritual assessment [] Other: Impact on Illness or Injury [] Angry [] Fearful [] Anxious [] Often cries [] Exhaustion [] Unable to work [] Unable to attend judaism [] Unable to walk/stand [] Unable to read [] Unable to drive [] Unable to eat/drink [] Unable to sleep [] Unable to be with family [] Patient intubated [] Other: Summary PT setting on side of bed... feeling stronger.. but staff want to keep one more day... impressed with the care he is receiving.... Time spent with patient
[2022-06-15 11:15] LABS: Glucose Point of Care 193 mg/dL (70-110)
[2022-06-15] MEDS: FUROsemide 40 mg Tablet 60 MG PO (15:35)
[2022-06-15 17:14] LABS: Glucose Point of Care 118 mg/dL (70-110)
--- NOTE | 2022-06-15 18:16 | PC.NURSE ---
Addendum entered by Frank Pepe RN 06/15/22 18:17: Ambulated pt twice today for a total of approx. 400 ft. Pt tolerated well. No s/s of SOB, able to carry on conversation while ambulating. Original Note: Shift Note Frequent safety and comfort rounds continue. Orders and/or nursing care completed as indicated. Patient monitored for response to intervention and treatment(s). Education provided includes need for PIV, need for continued stay and ambulation safety. Pt verbalizes understanding. Denies any needs at this time. VSS. Will continue to monitor.
--- NOTE | 2022-06-15 19:50 | PM.PN ---
Subjective Subjective: He is feeling better today. Last night he started feeling more short of breath, we had to give additional dose of IV Lasix, switch back to IV for this morning. He has been getting up to get around in his room. Denies chest pain or pressure. He did tolerate CPAP well overnight, and seems to prefer the mask that he has here. Is interested in arranging this mask for his home CPAP if he feels he would tolerate it with it. Vitals/I&O/Wt Last Vital Signs Temp 98.4 F 06/15/22 16:00 Pulse 81 06/15/22 15:00 Resp 26 H 06/15/22 15:00 BP 164/92 06/15/22 16:00 Pulse Ox 91 06/15/22 15:00 O2 Del Method 06/15/22 12:59 O2 Flow Rate 2 06/15/22 12:59 FiO2 21 06/15/22 13:18 06/15/22 06/15/22 06/15/22 06:59 14:59 22:59 Intake Total 360 / 1450 600 / 600 360 / 960 Output Total 475 / 1825 450 / 450 Balance -115 / -375 150 / 150 360 / 510 Weight last 48 hrs Weight 119.975 kg Weight 122.016 kg Physical Exam Const: COMMON NORMALS: patient oriented x3 and alert GENERAL APPEARANCE: cooperative ORIENTATION/CONSCIOUSNESS: Yes awake HENMT: COMMON NORMALS: oropharynx normal Neck/C-Spine: COMMON NORMALS: no JVD Resp: COMMON NORMALS: normal respiratory effort and clear to auscultation bilaterally AUSCULTATION: clear to auscultation bilaterally and diminished lung sounds (mildly) bilateral in the lower lung garza Cardio: COMMON NORMALS: no JVD, regular rhythm, S1 normal heart sound present, S2 normal heart sound present and No murmurs present (Cardio) RHYTHM: regular rhythm HEART SOUNDS: S1 normal heart sound present and S2 normal heart sound present GI: COMMON NORMALS: Normal to inspection, nondistended, normoactive bowel sounds present, Soft to palpation and non-tender PALPATION: Yes Soft to palpation OTHER: Mild edema of abdominal wall Extremity: COMMON NORMALS: no joint enlargement GENERAL: Yes edema (1+) Neuro: COMMON NORMALS: patient oriented x3 and moves all extremities SENSORIUM/ORIENTATION: Yes alert Skin: COMMON NORMALS: no rashes or lesions noted GENERAL SKIN EXAM: no rashes or lesions noted Data : 06/15/22 03:37 06/15/22 03:37 A&P Assessment and plan (1) Acute on chronic congestive heart failure: Was switched back to IV Lasix, this morning he again feels better. Discussed with him trying transition to higher dose of oral diuretic at 60 mg. He also appears to tolerate CPAP well with current mask on the hospital machine. Please see if same mask can be arranged for his CPAP at home at discharge as he feels he would be able to tolerate it with the same mask. Otherwise may need repeat sleep study. Discussed with him worsening renal function, SYLVIA. Possibly CKD exposed with diuresis. With aortic stenosis, but blood pressures have not been low, more hypertensive. Monitor I&O. Reassess renal function. Cardiac diet. Monitor blood pressures with aortic stenosis. Losartan has been on hold. Status: Acute (2) Dyspnea on minimal exertion: Improving with treatment of acute systolic and diastolic CHF. Secondary to above, possibly with contribution from moderate to severe aortic stenosis. Possible contribution from atrial fibrillation as well. He is supposed to have follow-up with Dr. Aquino tomorrow with regards to arrangement for coronary angiogram as well as DENIS cardioversion. 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 Status: Acute (3) Orthopnea: Due to above. Status: Acute (4) Atrial fibrillation: Continue metoprolol, Xarelto. On outpatient side pllans were for DENIS cardioversion after angiogram given he appears to been symptomatic with fatigue ever since being in A. fib. Please discuss with Dr. Aquino when he is back tomorrow. Status: Acute (5) Aortic stenosis: Moderate to severe by recent echocardiogram. Plans have been for assessment by angiogram subsequently also DENIS cardioversion given symptomatic A. fib with fatigue. Please discuss with Dr. Aquino when he is back tomorrow. Status: Acute (6) JOSIE (obstructive sleep apnea): Tolerated CPAP well here with the current mask attached onto the hospital machine. Please see if same mask can be arranged for him from home for his home machine at discharge as he feels he will be able to tolerate it with the current mask. Status: Acute Plan Lower extremity edema: Right greater than left, no DVT by duplex ultrasound. Age-adjusted D-dimer is normal. Mild cognitive dysfunction/mild memory impairment Depression DM2 HTN HLD Remote history of PE Attestations Medical Necessity Statement*: Continue admission for assessment management of decompensation of CHF and gentleman with underlying moderate to severe aortic stenosis, symptomatic atrial fibrillation. 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
[2022-06-15] MEDS: rivaroxaban 10 mg Tablet 20 MG PO (20:10)
[2022-06-15] MEDS: atorvastatin 40 mg Tablet 20 MG PO (20:11)
[2022-06-15] MEDS: donepezil 5 MG Tablet 10 MG PO (20:11)
[2022-06-15 21:17] LABS: Glucose Point of Care 147 mg/dL (70-110)
[2022-06-16] VITALS: BP 114/67; PULSE 81; RESP 18; TEMP 36.6; O2SAT 92
--- NOTE | 2022-06-16 03:05 | PC.NURSE ---
report given and pt transferred to [facility] bed 277 at 0240.
[2022-06-16 03:55] VITALS: PULSE 77
[2022-06-16 04:00] VITALS: BP 119/69; PULSE 81; RESP 18; TEMP 36.1; O2SAT 97
[2022-06-16 05:09] LABS: Basophils # 0.1 10^3/uL (0.0-0.1); Basophils % 0.7 %; Eosinophils # 0.2 10^3/uL (0.0-0.8); Eosinophils % 1.8 %; Hematocrit 46.5 % (42.0-52.0); Hemoglobin 14.6 g/dL (11.7-16.6); Lymphocytes # 2.3 10^3/uL (0.8-4.8); Lymphocytes % 27.9 %; Mean Corpuscular HGB Conc 31.4 g/dL (30.0-36.0); Mean Corpuscular Hemoglobin 28.1 pg (28.0-34.0); Mean Corpuscular Volume 89.4 fl (80-94); Mean Platelet Volume 11.9 fL (7.4-10.4); Monocytes # 0.6 10^3/uL (0.2-0.9); Monocytes % 7.3 %; Neutrophils # 5.09 10^3/uL (1.8-7.7); Neutrophils % 61.9 %; Nucleated Red Blood Cells % 0 %; Platelet Count 216 10^3/cmm (130-400); Red Cell Distribution Width 14.1 % (12.1-15.1); White Blood Count 8.2 10^3/uL (4.0-10.0)
[2022-06-16 05:28] LABS: Alanine Aminotransferase 16 U/L (0-41); Albumin Level 3.6 g/dL (3.5-5.2); Alkaline Phosphatase 76 U/L (40-130); Aspartate Amino Transferase 19 U/L (0-40); Blood Urea Nitrogen 24 mg/dL (8-23); Carbon Dioxide 28 mmol/L (22-29); Chloride 103 mmol/L (98-107); Globulin 2.6 g/dL (1.3-4.6); Glomerular Filtration Rate 74.1 mL/min (90-130); Glucose 144 mg/dL (65-115); Osmolality Calculated 301 mOsm/kg (285-295); Sodium 142 mmol/L (136-145); Total Bilirubin 0.7 mg/dL (0.15-1.2); Total Protein 6.2 g/dL (6.6-8.7)
[2022-06-16 05:35] LABS: Anion Gap 14.4 (5-19); Potassium 3.4 mmol/L (3.5-5.1)
[2022-06-16 06:25] LABS: Glucose Point of Care 138 mg/dL (70-110)
[2022-06-16 08:00] VITALS: BP 120/74; PULSE 78; RESP 18; TEMP 36.4; O2SAT 96
[2022-06-16] MEDS: allopurinol 300 mg Tablet PO (09:11)
[2022-06-16] MEDS: fluoxetine 20 mg Capsule PO (09:11)
[2022-06-16] MEDS: FUROsemide 40 mg Tablet 60 MG PO (09:11)
[2022-06-16] MEDS: potassium chloride ER 10 mEq Tablet PO (09:12)
[2022-06-16] MEDS: potassium chloride ER 20 mEq Tablet 40 MEQ PO (09:12)
[2022-06-16] MEDS: amlodipine 5 mg Tablet PO (09:12)
[2022-06-16] MEDS: metoprolol tartrate 50 mg Tablet PO (09:13)
--- NOTE | 2022-06-16 11:08 | PM.DCS ---
Discharge Providers Date of Admission: 06/14/22 15:47 Date of Discharge: June 16, 2022 Attending Provider at Admission: Errol Paredes Attending Provider at Discharge: Goyo Hooper MD Primary Care Provider: Radha Hooper MD Diagnoses at Discharge Discharge Diagnosis (1) Acute on chronic congestive heart failure: Status: Acute (2) Dyspnea on minimal exertion: Status: Acute (3) Orthopnea: Status: Acute (4) Atrial fibrillation: Status: Acute (5) Aortic stenosis: Status: Acute (6) JOSIE (obstructive sleep apnea): Status: Acute Reason for Visit Reason for Visit: SOB Hospital Course Hospital Course Edwin presented on June 13 with increased shortness of breath. He was found to be in acute on chronic congestive heart failure, and had significant dyspnea on minimal exertion. He had previously recently been in the hospital and diagnosed with moderate to severe aortic stenosis, new onset atrial fibrillation. He was being evaluated by cardiology and had a planned cardioversion as well as angiogram approximately in 1 week. He was diuresed with IV Lasix. With this he became clinically compensated. I have visited with the patient as well as cardiology regarding his current situation. Considering he is feeling much better, and is still on Xarelto will proceed with his outpatient angiogram and cardioversion next week. It was not done during this admission as his Xarelto would have to be held for several days, and the patient is feeling much better able to ambulate in the halls without need for oxygen. We also discussed the possibility of a new mask for his CPAP machine which we will try to get arranged on discharge. He is to follow-up 1400 cc fluid restriction. He is to call for any significant weight gain. Physical Exam Narrative: General exam no apparent distress Neck is supple no lymphadenopathy thyromegaly Cardiovascular irregular, irregular with 3/6 systolic murmur heard best on today's aortic area. Rate is controlled Lungs clear no wheezing or crackles Abdomen is soft obese nontender with positive bowel sounds Extremities trace edema, no cyanosis or clubbing Discharge Data Studies Completed and Pending Completed Studies During Hospitalization Category Date Time Status XR chest 1V portable [id number] Stat Exams 06/13/22 11:31 [place] [id number] Routine Ultrasound 06/13/22 16:58 Completed Radiology Impressions Chest X-Ray 06/13/22 11:31 IMPRESSION: 1. Low lung volumes 2. No acute findings. 3. Metallic surgical clips right axillary soft tissues Venous Duplex 06/13/22 16:58 IMPRESSION: No sonographic evidence of deep vein thrombosis. Laboratory Results WBC 8.2 10^3/uL (4.0-10.0) 06/16/22 04:43 RBC 5.20 10^6/uL (4.1-5.3) 06/16/22 04:43 Hgb 14.6 g/dL (11.7-16.6) 06/16/22 04:43 Hct 46.5 % (42.0-52.0) 06/16/22 04:43 MCV 89.4 fl (80-94) 06/16/22 04:43 MCH 28.1 pg (28.0-34.0) 06/16/22 04:43 MCHC 31.4 g/dL (30.0-36.0) 06/16/22 04:43 RDW 14.1 % (12.1-15.1) 06/16/22 04:43 Plt Count 216 10^3/cmm (130-400) 06/16/22 04:43 MPV 11.9 fL (7.4-10.4) H 06/16/22 04:43 Neut % (Auto) 61.9 % 06/16/22 04:43 Lymph % (Auto) 27.9 % 06/16/22 04:43 Crosby % (Auto) 7.3 % 06/16/22 04:43 Eos % (Auto) 1.8 % 06/16/22 04:43 Baso % (Auto) 0.7 % 06/16/22 04:43 Neut # (Auto) 5.09 10^3/uL (1.8-7.7) 06/16/22 04:43 Lymph # (Auto) 2.3 10^3/uL (0.8-4.8) 06/16/22 04:43 Crosby # (Auto) 0.6 10^3/uL (0.2-0.9) 06/16/22 04:43 Eos # (Auto) 0.2 10^3/uL (0.0-0.8) 06/16/22 04:43 Baso # (Auto) 0.1 10^3/uL (0.0-0.1) 06/16/22 04:43 Nucleated RBC % (auto) 0 % 06/16/22 04:43 Nucleated RBCs # 0.0 /100WBC 06/16/22 04:43 D-Dimer 0.61 ug/mIFEU (0-0.59) H 06/13/22 11:59 Sodium 142 mmol/L (136-145) 06/16/22 04:43 Potassium 3.4 mmol/L (3.5-5.1) L 06/16/22 04:43 Chloride 103 mmol/L (98-107) 06/16/22 04:43 Carbon Dioxide 28 mmol/L (22-29) 06/16/22 04:43 Anion Gap 14.4 (5-19) 06/16/22 04:43 BUN 24 mg/dL (8-23) H 06/16/22 04:43 Creatinine 1.0 mg/dL (0.7-1.2) 06/16/22 04:43 GFR Calculation 74.1 mL/min (90-130) L 06/16/22 04:43 Glucose 144 mg/dL (65-115) H 06/16/22 04:43 POC Glucose 138 mg/dL (70-110) H 06/16/22 06:16 Calculated Osmolality 301 mOsm/kg (285-295) H 06/16/22 04:43 Calcium 9.0 mg/dL (8.5-10.5) 06/16/22 04:43 Total Bilirubin 0.7 mg/dL (0.15-1.2) 06/16/22 04:43 AST 19 U/L (0-40) 06/16/22 04:43 ALT 16 U/L (0-41) 06/16/22 04:43 Alkaline Phosphatase 76 U/L (40-130) 06/16/22 04:43 Troponin T Baseline 21 ng/L (0-15) H 06/13/22 11:59 Troponin T 120 Minute 18.58 ng/L (0-15) H 06/13/22 13:58 Delta Troponin T -2.42 ABS# (0-10) L 06/13/22 13:58 Troponin T Hi Sens 6Hr 22.00 ng/L (0-15) H 06/13/22 18:10 Troponin T Hi Sens 6Hr Delta 1.00 ng/L (0-12) 06/13/22 18:10 NT-Pro-B Natriuret Pep 3208 pg/mL (0-125) H 06/13/22 11:59 Total Protein 6.2 g/dL (6.6-8.7) L 06/16/22 04:43 Albumin 3.6 g/dL (3.5-5.2) 06/16/22 04:43 Globulin 2.6 g/dL (1.3-4.6) 06/16/22 04:43 SARS-CoV-2 Ag (Rapid) Negative (Negative) 06/13/22 12:07 Vitals Last Vital Signs Temp 97.5 F L 06/16/22 08:00 Pulse 78 06/16/22 08:00 Resp 18 06/16/22 08:00 BP 120/74 06/16/22 08:00 Pulse Ox 96 06/16/22 08:00 O2 Del Method 06/16/22 08:00 O2 Flow Rate 2 06/15/22 12:59 FiO2 21 06/15/22 13:18 Discharge Plan Discharge Patient Disposition: Home Condition: Stable Prescriptions: New furosemide 40 mg Tablet 60 mg PO BID@08,16 Qty: 90 0RF potassium chloride 20 mEq tablet extended release 20 meq PO BID Qty: 60 0RF Continued multivitamin Tablet 1 tab PO DAILY Qty: 0 donepezil 10 mg tablet 10 mg PO BEDTIME amlodipine 5 mg tablet 5 mg PO DAILY simvastatin 40 mg tablet 40 mg PO BEDTIME gemfibrozil 600 mg tablet 600 mg PO BID allopurinol 300 mg tablet 300 mg PO DAILY fluoxetine 20 mg capsule 20 mg PO DAILY Xarelto 20 mg tablet 20 mg PO BEDTIME metformin 500 mg tablet See Rx Instructions .ROUTE .COMPLEX Rx Instructions: 1000mg po qam and 500mg po bedtime metoprolol tartrate 50 mg Tablet 50 mg PO BID@0900,2100 Qty: 60 0RF Discontinued losartan 50 mg tablet 50 mg PO DAILY potassium chloride 10 mEq tablet extended release 10 meq PO DAILY furosemide [Lasix] 40 mg tablet 40 mg PO DAILY Qty: 30 0RF Discharge Orders: Discharge Order (Routine); Ordered 06/16/22 Ordered By: Goyo Hooper Referrals: Radha Hooper MD [Primary Care Provider] - 4-7 days (BMP on follow-up) Patient Instructions: Opioid Safety Activity Restrictions/Additional Instructions: Follow-up with primary care provider 3 to 5 days Cardiac, consistent carb diet Fluid restriction 1400 cc Weight yourself daily. If weight greater than 3 pounds 2 days in a row please call your primary care provider or cardiology for potential change in Lasix dosing Check your vitals twice daily Follow-up with cardiology per their regularly scheduled evaluation for cardioversion and angiogram Please arrange with plan for obtaining appropriate sleep apnea mask at discharge. Discharge Attestations Time Spent in Discharge Care*: greater than 30 min Quality Metrics Clinical Quality Measures [ No reported AMI, CVA or VTE this stay] Coding Level of Care Code Acute Chg FW DC note Diagnoses Acute on chronic congestive heart failure I50.9 Dyspnea on minimal exertion R06.09 Orthopnea R06.01 Atrial fibrillation I48.91 Aortic stenosis I35.0 JOSIE (obstructive sleep apnea) G47.33
[2022-06-16 11:39] VITALS: BP 122/71; PULSE 68; RESP 18; TEMP 36.8; O2SAT 96
--- NOTE | 2022-06-16 12:04 | PC.NURSE ---
dc'd pts piv and tele. discharge instructions given, pt verbalized understanding with no further questions. pt left via w[place] to private vehicle.
== END 2022-06-16 12:03 | disposition home or self-care (01) | DRG 291 ==
LOC: ER 13:54 → ICU 15:08 → MEDSURG 06-16 02:42
PROVIDERS: Admitting Provider Internal Medicine; Emergency Provider Emergency Medicine; PCP Family Medicine; Visit Provider Internal Medicine
DX: I11.0 Hypertensive heart disease with heart failure (principal); I50.43 Acute on chronic combined systolic (congestive) and diastolic (congestive) heart failure; N17.9 Acute kidney failure, unspecified; I48.91 Unspecified atrial fibrillation; Z86.711 Personal history of pulmonary embolism; E11.9 Type 2 diabetes mellitus without complications; I35.0 Nonrheumatic aortic (valve) stenosis; G47.33 Obstructive sleep apnea (adult) (pediatric); Z91.19 Patient's noncompliance with other medical treatment and regimen; Z85.038 Personal history of other malignant neoplasm of large intestine; F32.A Depression, unspecified; E66.9 Obesity, unspecified; Z68.35 Body mass index [BMI] 35.0-35.9, adult; M10.9 Gout, unspecified; E78.5 Hyperlipidemia, unspecified; G31.84 Mild cognitive impairment of uncertain or unknown etiology; Z79.01 Long term (current) use of anticoagulants; Z79.84 Long term (current) use of oral hypoglycemic drugs
CPT/HCPCS: 36415; 36416; 71045; 80053; 82962; 83880; 84484; 85025; 85378; 87426; 93005; 93970; 94660; 96372; 96374; 99285; G0378; J0360; J1815; J1940

== ENCOUNTER 2022-06-22 09:15 | Observation (INO) | payer MEDICARE, SELFPAY ==
--- NOTE | 2022-06-22 06:00 | XACV_ITS ---
Ht: 693 cm Wt: 33 kg BSA: 2.12 m2 Gender: Male : 1950 Any Known Allergies: No known allergies Exam Priority: Routine Indication(s): - Abnormal nuclear perfusion test - Severe aortic valve stenosis by ECHO - Cardiomyopathy Procedure(s): Procedure Description: Diagnostic procedure Procedure Description: Left Heart Catheterization Procedure Description: Right Heart Catheterization Procedure Description: Left ventriculography Procedure Description: O2 saturation Procedure Description: Coronary Angiography Diagnostic Cath Status: Elective Diagnostic Findings * INDICATION: 71-year-old man with past medical history of recently diagnosed atrial fibrillation, pulmonary hypertension, diabetes, aortic stenosis came for scheduled outpatient right and left heart cath and valve study. * Left main artery: Patent LAD: Patent Left circumflex artery has mild luminal irregularities. RCA: Minor luminal irregularities. No significant stenosis.. * Right heart cath findings: RA pressure: 16/16/15 mmHg RV pressure: 49 /6/9 PCW: 38/38/33 PA: 51/27/36 TP Ao sat: 93% PA sat: 50% Cardiac output by Ritu: 5.3 L/min Cardiac index: 2.2 PVR: Less than 1 Wood units Moderate postcapillary pulmonary hypertension Mean gradient across aortic valve 14 mmHg. * Coronary angiography shows right dominance. Conclusions 1. Left main artery: Patent LAD: Patent Left circumflex artery has mild luminal irregularities. RCA: Minor luminal irregularities. No significant stenosis.. 2. Moderate postcapillary pulmonary hypertension. 3. Elevated right and left-sided cardiac pressures. 4. Mild to moderate aortic stenosis by aortic valve gradient. Recommendations * Aggressive risk factor modification. * Uptitrate diuretic therapy. * Patient will benefit from DENIS cardioversion. * Outpatient cardiology follow-up in 2 weeks. Diagnostic RX Recommendation: medical therapy and/or counseling Pressures Phase:Rest AO : 111 / 91 ( 101 ) @ 9:19:00 AM 158 / 73 ( 115 ) @ 9:56:00 AM 151 / 85 ( 116 ) @ 9:56:00 AM LV : 158 / -20 / 6 @ 9:54:00 AM 155 / -19 / 0 @ 9:55:00 AM 156 / -27 / 5 @ 9:55:00 AM 159 / -16 / 17 @ 9:56:00 AM 161 / -13 / 15 @ 9:56:00 AM RV : 49 / 6 / 9 @ 9:12:00 AM PA : / ( 0 ) @ 9:07:00 AM 51 / 27 ( 36 ) @ 9:11:00 AM RA : a wave = 16 v wave = 16 mean = 15 @ 9:12:00 AM PCW : a wave = 38 v wave = 38 mean = 33 @ 9:10:00 AM O2 Content Phase:Rest PA : O2 Content O2: 50.1 @ 9:56:00 AM Saturations Phase:Rest AO : 83 @ 9:19:00 AM PA : 50 @ 9:56:00 AM Cardiac Output Phase:Rest Ritu : 7 @ 9:06:38 AM Ritu Cardiac Index: 2 @ 9:06:38 AM Flow Phase:Rest Qp : 7 @ 9:06:38 AM Qs : 7 @ 9:06:38 AM Valves Phase:DefaultPhase AV : 14.0 @ 9:06:38 AM 14.0 @ 9:06:38 AM AV Mean Gradient: 14.0 @ 9:06:38 AM 14.0 @ 9:06:38 AM AV Flow: 454 @ 9:06:38 AM AV Area: 2.7 @ 9:06:38 AM AV Area Index: 0.75 @ 9:06:38 AM Clinical Evaluation EBL: 5mL-10mL Procedural Details Procedure Consent Obtained. Admit Source: Out Patient. Pre-Procedure Time Out. Identified patient by full name and date of as verbalized by the patient/guarantor. Does the consent match the physician's order: Yes. Accurate & Complete Informed Consent: Yes. Inpatient/Outpatient History & Physical on Chart: Yes. If H&P is completed, is and addenduem needed: No; If yes, is the addendum complete: N/A. Visualize and Verify Site with Patient/Guarantor: N/A. Relevant Radiology Images available: N/A. The risks, benefits, and alternatives of sedation and/or procedure were discussed by physician. The patient agrees to continue. Procedure started. [facility] Clinical Fraility Score: 3: Managing Well. Test Desk Trouble Locator Indications: LV Dysfunction, Abnormal Stress, Aortic Stenosis. Chest Pain Symptom Assessment: Typical Angina Symptoms. Cardiovascular Instability: No, Stable. Correct patient, site and procedure confirmed by cath team. Current diagnosis: LV Dysfunction, Abnormal Stress Test, Aortic Stenosis. PERRLA. Strong, equal hand relief mate bilaterally. Lungs clear x 5 lobes. IV Site on Arrival: 20 gauge in the right anticubital. IV Site on Arrival: 20 gauge in the left anticubital. IV Fluids: 0.9% NaCl at KVO. 0 mL infused prior to labeling strategist. Pre Procedural Pulses: bilateral dorsalis pedis was 2+. Pre Procedural Pulses: bilateral posterior tibial was Doppled. Pre Procedural Pulses: bilateral radial was 3+. Oxygen started at 0liters/min via nasal canula d/t RHC. bilateral groins was prepped with chloroprep then draped in the usual sterile fashion. right brachial was prepped with chloroprep then draped in the usual sterile fashion. right radial was prepped with chloroprep then draped in the usual sterile fashion. Baseline sample Acquired. HR: 97 BPM. Physician notified. Physician arrived. Patient's family unavailable. Equipment: 5F - Femoral. Equipment: 6F - Femoral. Equipment: 5F - Radial. Equipment: 6F - Radial. Physician scrubbed in. Immediate Pre-Procedure Time Out. Correct Patient: Yes; Correct Procedure: Yes; Correct Site: Yes; Correct Patient Position: Yes; Correct Supplies: Yes; Dried Flammable Prep: Yes; Blood Products Available: N/A;. Lidocaine 1% infiltrated to the right brachial. Wire inserted throught the 20 ga IV access. [place] MON catheter inserted. [place] wire inserted through the SWAN to advance to PA. [place] wire removed. Pressure measurements obtained. Oximetry samples were obtained. Normal venous range: 60-85%. Normal arterial range: 95-100%. Pressure measurements obtained. [place] out. Lidocaine 1% infiltrated to the right radial. Arterial access obtained. Oximetry samples were obtained. Normal venous range: 60-85%. Normal arterial range: 95-100%. A 5 [place] TIG catheter in over wire. Oxygen started at 3liters/min via nasal canula. Catheter removed over the exchange wire. A BS [id number] Diagnostic Catheter was advanced over the wire and used for Left coronary angiography. Multiple views taken of left coronary artery. Catheter removed over the exchange wire. A BS [id number] [id number] Diagnostic Catheter was advanced over the wire and used for Right coronary angiography. Multiple views taken of right coronary artery. Attempting to cross Aortic valve with catheter and wire. JR 4 out over the wire. A 5 citizen [place] AL1 catheter in over wire. Attempting to cross Aortic Valve. AL 1 out over the wire. A BS [id number] PIG Diagnostic Catheter was advanced over the wire and used for Ventriculography. Attempting to cross Aortic Valve. Unable to cross the valve. Catheter removed over the wire. Radial Approach aborted. MD attempting to gain access in the Femoral artery. Lidocaine 1% infiltrated to the right groin. Arterial access obtained with micropuncture set. A TR Band was successful obtaining hemostatsis at the Right Radial artery insertion site. TR band placed. Hemostasis obtained. A 5 [place] AL1 catheter in over wire. Attempting to cross the valve. Exchange wire cross the Aortic valve. AL1 out over the wire. 125 cm PIGTAIL INSERTED. EDP Sample taken: LV 158/-21,6; HR: 82 BPM; SpO2: 96%. EDP Sample taken: LV 155/-20,0; HR: 84 BPM; SpO2: 97%. EDP Sample taken: LV 156/-28,5; HR: 82 BPM; SpO2: 95%. EDP Sample taken: LV 159/-17,17; HR: 45 BPM; SpO2: 98%. Pullback taken: LV 161/-14,15; AO 158/73(115); Mean: 14mmHg, Peak to Peak: 14mmHg, SEP: 16sec/min; HR: 82 BPM; SpO2: 95%. Catheter removed over the wire. Physician review of films. A Right femoral angiogram was performed to determine safe placement of closure device. Physician scrubbed out. A Mechanical Compression was successful obtaining hemostatsis at the Right Brachial Vein insertion site. A Suture was successful obtaining hemostatsis at the Right Femoral artery insertion site. Sheath(s) removed and manual pressure held on brachial vein access until hemostasis was achieved. Sterile 4x4 and Op-site applied to the puncture site. No oozing or hematoma noted. Post sheath removal instructions were given and the patient verbalized understanding. Right femoral Sheath sutured into position with 2-0 silk and sterile 4x4's and Op-site applied over the site. No oozing or signs and symptoms of hematoma noted. Arterial sheath flushed and connected to tranducer and pressure bag with heparinized saline. Post Procedure: Pulses reassessed and unchanged. PERRLA. Strong, equal hand relief mate bilaterally. No VTE prophylaxis required. Medication waste: Lido- 1 ml, Nitro- 49.8 mg, Heparin- 4000 units, Versed- 1 mg. Total IV fluids: 78 mL. Fluoro: 14:09. Contrast type used: Omnipaque 300 mg/mL, 150 mL bottle. [id number]. Post-op diagnosis: Moderate Aortic Stenosis, Patent Coronaries, Elevated right and left heart pressures. Complications: None. Estimated blood loss: 5mL-10mL. Responsiveness - Normal response to verbal stimuli; alert and oriented, PERRLA. Airway - Unaffected, no intervention required; spontaneous ventilation. Circulation: W/N/L, pulses unchanged. Nausea/Vomiting: No. Procedure completed. Patient transferred by bed to ICU. Vital chart was stopped. Access Site Site: Right Brachial Vein Sheath Size: 6 Fr Hemostasis Method: Mechanical Compression Hemostasis Success: Successful Site: Right Radial artery Sheath Size: 6 Fr Hemostasis Method: TR Band Hemostasis Success: Successful Site: Right Femoral artery Sheath Size: 6 Fr Hemostasis Method: Suture Hemostasis Success: Successful Procedure Medications Start: 8:01 AM Stop: 8:01 AM Medication: Versed Amount: 1 mg Route: I.V. Start: 8:02 AM Stop: 8:02 AM Medication: Lasix (furosemide) Amount: 20 mg Route: I.V. Start: 8:16 AM Stop: 8:16 AM Medication: Nitrogylcerin Amount: 200 mcg Route: I.A. Start: 8:19 AM Stop: 8:19 AM Medication: Heparin Amount: 2500 units Route: I.V. Start: 8:27 AM Stop: 8:27 AM Medication: Heparin Amount: 2500 units Route: I.V. I, the attending physician, have reviewed and verified all procedure medications. Yes, all medications given per verbal order History/Risk Factors Hypertension: Yes Dyslipidemia: Yes Peripheral Arterial Disease (PAD): No Myocardial Infarction (NV): No Obesity: No Renal Disease: No Tobacco Use: Never Prior Interventions PCI: Yes CABG: Yes Valve Surgery: No Report Signatures Finalized by Ventura Aquino MD on 07/05/2022 06:43 PM
[2022-06-22 06:35] VITALS: BP 153/121; PULSE 140; RESP 18; O2SAT 93; BMI 37.0
[2022-06-22] MEDS: diphenhydrAMINE 50 mg Capsule PO (06:51)
--- NOTE | 2022-06-22 06:51 | PC.NURSE ---
Afib with RVR Dr. Aquino notified by phone. Pt afib with rate 130's-150's. BP 153/121. Telephone orders received to give 5mg IV metoprolol prior to procedure. 5mg IV push Metoprolol given at this time.
[2022-06-22 07:02] LABS: INR 1.06 (0.8-1.2)
--- NOTE | 2022-06-22 07:59 | W.PM.OPSUD ---
Surgery/Procedure H&P Update DATE OF PROCEDURE: June 22, 2022 DATE H&P PERFORMED: 06/10/22 H&P UPDATE INFORMATION: I have reviewed H&P completed within last 30 days, I have examined patient prior to procedure and No changes to prior documentation PREOP DIAGNOSIS: Aortic stenosis/congestive heart failure/abnormal stress test PRIMARY INDICATION FOR PROCEDURE: Aortic stenosis/congestive heart failure/abnormal stress test PLANNED PROCEDURE: Operation Date: 06/22/22 07:00 Proposed Procedures p Right and Left Heart Cath 55744,R06.09,I35.0(Bilateral) - Ventura Aquino M.D Possible percutaneous coronary intervention PATIENT REASSESSED PRIOR TO SEDATION, WITH NO CHANGE NOTED: Yes PHYSICAL EXAM: alert, oriented x 3 and clear to auscultation bilaterally OTHER PERTINENT EXAM FINDINGS: Irregularly irregular heart rhythm. AIRWAY EVAL/ANESTHESIA PLAN: ASA III, Local Anesthesia, Risks, benefits & alternatives of sedation and/or procedure discussed and Patient agrees to continue as planned ADDITIONAL INFORMATION: Moderate sedation
[2022-06-22 09:31] VITALS: BMI 37.0
[2022-06-22 10:06] LABS: Blood Gas Operator Identificat PA; Blood Gas Sample Site Not specified; Blood Gas Sample Type Not specified; Carboxyhemoglobin 1.7 %THgb (0.4-20.1); HGB O2 Sat 48.9 % (95-100); Methemoglobin 0.6 % (0.4-1.5); Total Hemoglobin 14.7 g/dL (14-18)
[2022-06-22 10:07] LABS: Blood Gas Operator Identificat AO; Blood Gas Sample Site Not specified; Blood Gas Sample Type Not specified; Carboxyhemoglobin 1.9 %THgb (0.4-20.1); HGB O2 Sat 80.7 % (95-100); Methemoglobin 0.5 % (0.4-1.5); Total Hemoglobin 14.4 g/dL (14-18)
--- NOTE | 2022-06-22 10:33 | PC.CHAP ---
Pastoral Care Encounter/Spiritual Assessment Type of Contact [] Declined chainstitch hemmer visit [] Patient/Family/Request visit [] Outpatient visit [] Follow-up visit [] Physician referral [] Code/Alert [x] Routine visit [] Staff referral [] Actively dying [] Patient sleeping [x] Family support [] [] Out of room [] Palliative care [] [] Receiving care in room [] Pre-surgical visit [] Trauma [] Long length of stay [x] ICU visit [] Other: Relational/Emotional Strength [] Patient feels connected with others/family/visitors/staff [] Distress [] Loneliness/isolation [] Abandonment Spirituality of Patient [] Person of Maru [] Attends Sikhism of their Maru [] Believes in Prayer [] Reads Bible or Yarsani materials [] There are Spiritual issues to be addressed Assistant Restaurant General Manager Interventions [x] Prayer [] Active listening [] Non-anxious presence [] Spiritual/emotional support [] Crisis/trauma care [] Spiritual counseling [] Bereavement support [] Provided bereavement packet [] Provided Bible/devotional materials [] Provided toy/stuffed animal, coloring book to patient or family member [] Provided Communion [] Anointing/[place] [] Salvation [x] Completed spiritual assessment [] Other: Impact on Illness or Injury [] Angry [] Fearful [] Anxious [] Often cries [] Exhaustion [] Unable to work [] Unable to attend sabianist [] Unable to walk/stand [] Unable to read [] Unable to drive [] Unable to eat/drink [] Unable to sleep [] Unable to be with family [] Patient intubated [] Other: [facility] PT preparing to go home Time spent with patient
[2022-06-22 12:07] LABS: Partial Thromboplastin Time 46.2 SECONDS (23.9-36.7)
[2022-06-22] MEDS: metoprolol tartrate 50 mg Tablet PO ×2 (12:49→12:50)
[2022-06-22] MEDS: amlodipine 5 mg Tablet PO (12:50)
[2022-06-22] MEDS: hyDRALAzine 20 mg/mL INJ 1 mL IVP (12:50)
[2022-06-22] MEDS: fentaNYL 50 mcg/mL INJ 2mL 25 MCG IVP (15:34)
[2022-06-22 18:20] VITALS: BP 153/121; PULSE 100; RESP 18
--- NOTE | 2022-06-22 18:21 | USCV_ITS ---
Edwin Anderson Age: 71 Gender: M : 1950 Exam Date: 06/22/2022 20:50 Ordering Phys: Ventura Aquino M.D ([email or web address]) Technologist: ROMI [place] [facility] [place]: Patient is s/p cardiac catheterization. He has a pressure device over RIGHT inguinal area. No palpable thrill detected. r/o pseudo Risk Factors: Previous Vascular Surgery: None RIGHT LEFT Waveform Velocity (cm/s) Velocity (cm/s) Waveform Triphasic 66.8 ARTIST CONSULTANT Triphasic 66.0 SFA Prox Triphasic 62.1 SFA Mid Triphasic 42.7 SFA Dist Triphasic 36.8 POP Triphasic 47.3 MANAGER ORACLE DATABASE Triphasic 48.6 DPA 1.2 CECILIA FINDINGS No similar study. Status post cardiac catherization. Evaluate for possible pseudoaneurysm. Post procedure pressure device over inguinal region. Difficult to assess iliac artery. No abnormality right ARTIST CONSULTANT or inguinal region seen. No pseudoaneurysm or hematoma. CONCLUSIONS Negative ultrasound right groin, no pseudoaneurysm seen. Dr. Abigail Yao DO (Electronically Signed) Final Date: 23 June 2022 10:24 S
[2022-06-22] MEDS: fentaNYL 50 mcg/mL INJ 2mL IVP (18:39)
--- NOTE | 2022-06-22 18:58 | PC.NURSE ---
Sheath out Sheath pulled at approx. 1615 after bp in 130's/80's after being in 200's/100's. PTT at 1130 46. Sheath pulled with the help of Andreas RN. Pressure applied per protocol. No hematoma present. Pressure dressing applied. 20 min check no hematoma present. Pt checked at 1645 and hematoma present. Pressure applied, pt denied back pain or stomach pain. No visible bleeding. Hematoma extends down in to lower groin. Pedal pulses palpable. BP stable at 120's/70's. HR in 80's. Cardiology notified. Dr Gross responded first and assessed patient with nursing then Dr Aquino came and ordered for FemStop to be placed with no pressure, CBC ordered for 2130, US of right femoral ordered. After 30min of pressure hematoma is softening. Area is marked.
--- NOTE | 2022-06-22 19:30 | PC.NURSE ---
Pt. laying in bed, comfortable, no complaints or needs expressed at this time. Right groin cath site has femstop over site with 9mmhg of pressure in bulb. Instructed by offgoing nurse to keep patient supine and keep femstop in place until dayshift or until Dr. Aquino rounds and orders otherwise. Pt. has hematoma below cath site that goes down into medial thigh/groin. Hematoma is soft with outlines from previous shift. Hematoma has not gone past lines outlined. Right radial cath site is clean and intact. Right brachial cath site is clean and intact with pressure dressing in place. No needs identified at this time.
[2022-06-22 20:40] LABS: Basophils % 0.3 %; Eosinophils % 0.1 %; Hematocrit 40.4 % (42.0-52.0); Hemoglobin 13.1 g/dL (11.7-16.6); Lymphocytes % 13.9 %; Mean Corpuscular HGB Conc 32.4 g/dL (30.0-36.0); Mean Corpuscular Hemoglobin 28.2 pg (28.0-34.0); Mean Corpuscular Volume 87.1 fl (80-94); Mean Platelet Volume 11.5 fL (7.4-10.4); Monocytes # 0.4 10^3/uL (0.2-0.9); Monocytes % 5.1 %; Neutrophils # 5.58 10^3/uL (1.8-7.7); Neutrophils % 80.5 %; Nucleated Red Blood Cells % 0 %; Platelet Count 212 10^3/cmm (130-400); Red Blood Count 4.64 10^6/uL (4.1-5.3); Red Cell Distribution Width 13.9 % (12.1-15.1); White Blood Count 6.9 10^3/uL (4.0-10.0)
[2022-06-22 22:00] VITALS: PULSE 68
[2022-06-22] MEDS: temazepam 15 mg Capsule PO (23:51)
[2022-06-23] VITALS (53 sets, daily range): BP systolic 125–171; BP diastolic 72–108; PULSE 65–140; RESP 0–24; TEMP 36.2; O2SAT 79–98
[2022-06-23 03:40] LABS: Basophils % 0.5 %; Eosinophils # 0.1 10^3/uL (0.0-0.8); Eosinophils % 1.3 %; Hematocrit 40.9 % (42.0-52.0); Lymphocytes # 1.6 10^3/uL (0.8-4.8); Mean Corpuscular HGB Conc 31.8 g/dL (30.0-36.0); Mean Platelet Volume 11.7 fL (7.4-10.4); Monocytes # 0.5 10^3/uL (0.2-0.9); Monocytes % 7.8 %; Neutrophils # 4.09 10^3/uL (1.8-7.7); Neutrophils % 65.2 %; Nucleated Red Blood Cells % 0 %; Platelet Count 218 10^3/cmm (130-400); Red Blood Count 4.65 10^6/uL (4.1-5.3); White Blood Count 6.3 10^3/uL (4.0-10.0)
[2022-06-23 04:08] LABS: Anion Gap 15.5 (5-19); Blood Urea Nitrogen 15 mg/dL (8-23); Calcium 8.8 mg/dL (8.5-10.5); Carbon Dioxide 26 mmol/L (22-29); Chloride 104 mmol/L (98-107); Glomerular Filtration Rate 66.4 mL/min (90-130); Glucose 138 mg/dL (65-115); Osmolality Calculated 297 mOsm/kg (285-295); Potassium 3.5 mmol/L (3.5-5.1); Sodium 142 mmol/L (136-145)
--- NOTE | 2022-06-23 08:43 | PM.DCS ---
Discharge Providers Date of Admission: 06/22/22 09:15 Date of Discharge: June 23, 2022 Attending Provider at Admission: Ventura Aquino M.D Attending Provider at Discharge: Ventura Aquino M.D Primary Care Provider: Radha Hooper MD Reason for Visit Reason for Visit: Right and left heart cath Brief History: 71-year-old man with past medical history of recently diagnosed atrial fibrillation, pulmonary hypertension, diabetes, aortic stenosis came for scheduled outpatient right and left heart cath and valve study. Hospital Course Hospital Course Coronary angiogram demonstrated nonobstructive CAD. Valve study shows mild to moderate aortic stenosis. Patient does have elevated cardiac pressures. He has been staying in A. fib. Plan was to discharge patient same day however after sheath pull, patient developed a hematoma. He was kept overnight for observation. No significant drop in hemoglobin. He stayed hemodynamically stable. Hematoma reduced in size with pressure. Patient was stable to be discharged. We will be holding Xarelto for 3 days secondary to hematoma formation. Doppler ultrasound did not reveal pseudoaneurysm. Patient will need outpatient DENIS cardioversion as likely reason for heart failure symptoms is uncontrolled A. fib. We are also uptitrating metoprolol to 100 mg twice daily. Physical Exam Narrative: GENERAL: Patient is alert, awake and oriented x3. [] NECK: No jugular vein distension. [] HEENT: No cyanosis. No icterus. No pallor. [] HEART: Irregularly irregular. LUNGS: Clear to auscultate bilaterally. [] ABDOMEN: Soft, nontender and nondistended. Positive bowel sounds. No guarding, rebound or tenderness. [] CENTRAL NERVOUS SYSTEM: Grossly nonfocal. [] EXTREMITIES: Lower extremities with 1+ edema bilaterally. Patient has hematoma in right groin. Discharge Data Studies Completed and Pending Pending at discharge Category Date Time Status CYBER SECURITY ADMINISTRATOR request for service Routine Exams 06/22/22 06:00 [place] [id number] Routine Ultrasound 06/22/22 18:21 Taken Laboratory Results WBC 6.3 10^3/uL (4.0-10.0) 06/23/22 03:20 RBC 4.65 10^6/uL (4.1-5.3) 06/23/22 03:20 Hgb 13.0 g/dL (11.7-16.6) 06/23/22 03:20 Hct 40.9 % (42.0-52.0) L 06/23/22 03:20 MCV 88.0 fl (80-94) 06/23/22 03:20 MCH 28.0 pg (28.0-34.0) 06/23/22 03:20 MCHC 31.8 g/dL (30.0-36.0) 06/23/22 03:20 RDW 14.0 % (12.1-15.1) 06/23/22 03:20 Plt Count 218 10^3/cmm (130-400) 06/23/22 03:20 MPV 11.7 fL (7.4-10.4) H 06/23/22 03:20 Neut % (Auto) 65.2 % 06/23/22 03:20 Lymph % (Auto) 25.0 % 06/23/22 03:20 Dickey % (Auto) 7.8 % 06/23/22 03:20 Eos % (Auto) 1.3 % 06/23/22 03:20 Baso % (Auto) 0.5 % 06/23/22 03:20 Neut # (Auto) 4.09 10^3/uL (1.8-7.7) 06/23/22 03:20 Lymph # (Auto) 1.6 10^3/uL (0.8-4.8) 06/23/22 03:20 Dickey # (Auto) 0.5 10^3/uL (0.2-0.9) 06/23/22 03:20 Eos # (Auto) 0.1 10^3/uL (0.0-0.8) 06/23/22 03:20 Baso # (Auto) 0.0 10^3/uL (0.0-0.1) 06/23/22 03:20 Nucleated RBC % (auto) 0 % 06/23/22 03:20 Nucleated RBCs # 0.0 /100WBC 06/23/22 03:20 PT 14.10 SECONDS (12.1-14.9) 06/22/22 06:25 INR 1.06 (0.8-1.2) 06/22/22 06:25 APTT 46.2 SECONDS (23.9-36.7) H 06/22/22 11:50 Specimen Type Not specified 06/22/22 08:16 Specimen Type Not specified 06/22/22 08:16 Sample Site Not specified 06/22/22 08:16 Sample Site Not specified 06/22/22 08:16 Antonio Test N/a 06/22/22 08:16 Antonio Test N/a 06/22/22 08:16 A-a O2 Gradient Not Reportable 06/22/22 08:16 A-a O2 Gradient Not Reportable 06/22/22 08:16 Hematocrit 44.0 % (42-52) 06/22/22 08:16 Hematocrit 45.0 % (42-52) 06/22/22 08:16 Hgb O2 Saturation 48.9 % (95-100) L 06/22/22 08:16 Hgb O2 Saturation 80.7 % (95-100) L 06/22/22 08:16 Carboxyhemoglobin 1.7 %THgb (0.4-20.1) 06/22/22 08:16 Carboxyhemoglobin 1.9 %THgb (0.4-20.1) 06/22/22 08:16 Methemoglobin 0.5 % (0.4-1.5) 06/22/22 08:16 Methemoglobin 0.6 % (0.4-1.5) 06/22/22 08:16 Total Hemoglobin 14.4 g/dL (14-18) 06/22/22 08:16 Total Hemoglobin 14.7 g/dL (14-18) 06/22/22 08:16 O2 Delivery Device N/a 06/22/22 08:16 O2 Delivery Device N/a 06/22/22 08:16 Research Chief Engineer ID Ao 06/22/22 08:16 Research Chief Engineer ID Pa 06/22/22 08:16 Sodium 142 mmol/L (136-145) 06/23/22 03:20 Potassium 3.5 mmol/L (3.5-5.1) 06/23/22 03:20 Chloride 104 mmol/L (98-107) 06/23/22 03:20 Carbon Dioxide 26 mmol/L (22-29) 06/23/22 03:20 Anion Gap 15.5 (5-19) 06/23/22 03:20 BUN 15 mg/dL (8-23) 06/23/22 03:20 Creatinine 1.1 mg/dL (0.7-1.2) 06/23/22 03:20 GFR Calculation 66.4 mL/min (90-130) L 06/23/22 03:20 Glucose 138 mg/dL (65-115) H 06/23/22 03:20 Calculated Osmolality 297 mOsm/kg (285-295) H 06/23/22 03:20 Calcium 8.8 mg/dL (8.5-10.5) 06/23/22 03:20 Vitals Last Vital Signs Temp 97.1 F L 06/23/22 08:00 Pulse 87 06/23/22 08:00 Resp 18 06/23/22 08:00 BP 145/72 06/23/22 08:00 Pulse Ox 97 06/23/22 08:00 O2 Del Method 06/23/22 08:00 Discharge Plan Discharge Patient Disposition: Home Condition: Stable Prescriptions: Continued multivitamin Tablet 1 tab PO DAILY Qty: 0 donepezil 10 mg tablet 10 mg PO BEDTIME amlodipine 5 mg tablet 5 mg PO DAILY simvastatin 40 mg tablet 40 mg PO BEDTIME gemfibrozil 600 mg tablet 600 mg PO BID allopurinol 300 mg tablet 300 mg PO DAILY fluoxetine 20 mg capsule 20 mg PO DAILY furosemide 40 mg Tablet 60 mg PO BID@08,16 Qty: 90 0RF potassium chloride 20 mEq tablet extended release 20 meq PO BID Qty: 60 0RF Changed metoprolol tartrate 50 mg Tablet 100 mg PO BID@0900,2100 Qty: 120 1RF Held Xarelto 20 mg tablet 20 mg PO BEDTIME Hold Instructions: Resume on 06/26/22. metformin 500 mg tablet See Rx Instructions .ROUTE .COMPLEX Hold Instructions: Resume on 06/25/22. Rx Instructions: 1000mg po qam and 500mg po bedtime Discontinued enoxaparin [Lovenox] 120 mg/0.8 mL syringe 120 mg SUBCUT DIRECTED Qty: 3.2 0RF Rx Instructions: 1 injection every 12 hours for 2 days prior to [facility] on 06/22 Discharge Orders: Discharge Order (Routine); Ordered 06/23/22 Ordered By: Ventura Aquino Referrals: Ventura Aquino M.D [Physician] - 1 month Kendal Galindo FNP [Nurse Practitioner] - 4-7 days Discharge Diet: Diabetic Discharge Activity: Increase activity as tolerated Patient Instructions: Angio-Seal (DC), Opioid Safety, Post Angiogram Home Care Instructions Activity Restrictions/Additional Instructions: Please do not lift more than 5 pounds of weight for the next 5 days Discharge Attestations Time Spent in Discharge Care*: greater than 30 min Quality Metrics Clinical Quality Measures [ No reported AMI, CVA or VTE this stay] Coding Level of Care Code Acute Chg FW DC note
--- NOTE | 2022-06-23 09:56 | PC.CHAP ---
Pastoral Care Encounter/Spiritual Assessment Type of Contact [] Declined pattern developer visit [] Patient/Family/Request visit [] Outpatient visit [] Follow-up visit [] Physician referral [] Code/Alert [x] Routine visit [] Staff referral [] Actively dying [] Patient sleeping [x] Family support [] [] Out of room [] Palliative care [] [] Receiving care in room [] Pre-surgical visit [] Trauma [] Long length of stay [x] ICU visit [x] Other: preparing to go home Relational/Emotional Strength [] Patient feels connected with others/family/visitors/staff [] Distress [] Loneliness/isolation [] Abandonment Spirituality of Patient [] Person of Maru [] Attends Caodaism of their Maru [] Believes in Prayer [] Reads Bible or Yazdanism materials [] There are Spiritual issues to be addressed Grievance And Appeals Specialist Interventions [x] Prayer [] Active listening [] Non-anxious presence [] Spiritual/emotional support [] Crisis/trauma care [] Spiritual counseling [] Bereavement support [] Provided bereavement packet [] Provided Bible/devotional materials [] Provided toy/stuffed animal, coloring book to patient or family member [] Provided Communion [] Anointing/[place] [] Salvation [x] Completed spiritual assessment [] Other: Impact on Illness or Injury [] Angry [] Fearful [] Anxious [] Often cries [] Exhaustion [] Unable to work [] Unable to attend moravian [] Unable to walk/stand [] Unable to read [] Unable to drive [] Unable to eat/drink [] Unable to sleep [] Unable to be with family [] Patient intubated [] Other: Summary Time spent with patient
--- NOTE | 2022-06-23 10:48 | PC.NURSE ---
PT HAS HAD A GOOD MORNING. HEMATOMA LOCATED AT R GROIN; IT IS SOFT FOR THE MOST PART, SOME HARDNESS TOWARDS NICA AREA. OTHER SITES LOOK GOOD. PT IS A/O X4. RUNNING AFIB ON TELE. LUNGS ARE CLEAR. ACTIVE BOWEL SOUNDS X4. DR. ROBLES IN TO SEE PT. THIS NURSE ROUNDED WITH DR. ROBLES. PT TO DISCHARGE TODAY. DISCHARGE PAPERWORK GONE OVER WITH PT BY CHARGE NURSE PHILIP. PT SAFELY WHEELED OUT BY CHARGE NURSE WELL.
== END 2022-06-23 11:08 | disposition home or self-care (01) ==
LOC: ICU 09:27
PROVIDERS: Admitting Provider Internal Medicine; PCP Family Medicine; Visit Provider Internal Medicine
DX: I25.10 Atherosclerotic heart disease of native coronary artery without angina pectoris (principal); I35.0 Nonrheumatic aortic (valve) stenosis; I48.91 Unspecified atrial fibrillation; L76.32 Postprocedural hematoma of skin and subcutaneous tissue following other procedure; I10 Essential (primary) hypertension; E11.9 Type 2 diabetes mellitus without complications; E66.9 Obesity, unspecified; E78.5 Hyperlipidemia, unspecified; Z79.01 Long term (current) use of anticoagulants; Z86.711 Personal history of pulmonary embolism; Y83.8 Other surgical procedures as the cause of abnormal reaction of the patient, or of later complication, without mention of misadventure at the time of the procedure
CPT/HCPCS: 36415; 80048; 82810; 85025; 85610; 85730; 93460; 93926; 96360; 99152; 99153; C1751; C1769; C1887; C1894; G0378; J0360; J1644; J1940; J2250; J3010; J3490; J7030; Q0163; Q9967

== ENCOUNTER → 2022-06-30 09:26 | Outpatient (BNVA) | payer MEDICARE, OTHER, SELFPAY | PROVIDERS: PCP Family Medicine; Visit Provider Nurse Practitioner Family | DX: I25.10 Atherosclerotic heart disease of native coronary artery without angina pectoris (principal); I48.91 Unspecified atrial fibrillation; I10 Essential (primary) hypertension | CPT/HCPCS: 36415; 80048; 99214 ==

== ENCOUNTER 2022-08-07 10:14 | Day surgery (SDC) | payer MEDICARE, SELFPAY ==
[2022-08-05 14:11] VITALS: BMI 35.1
[2022-08-07 10:54] VITALS: BP 142/78; PULSE 88; RESP 18; TEMP 36.2; O2SAT 97
[2022-08-07] MEDS: sodium chloride 0.9% 1,000 ML 30 ML IV (11:11)
--- NOTE | 2022-08-07 11:31 | ECG_ITS ---
[facility] Test Date: 2022-08-07 Pat Name: Edwin Anderson Department: Room: Gender: Male Metal Spinner: : 1950 Requested By: Padmaja Johnson Order Number: [id number] Lakeisha MD: Padmaja Johnson M.D. Measurements Intervals [place] Rate: 91 P: W[place]: QRS: -55 QRSD: 130 T: 28 QT: 404 QTc: 498 Interpretive Statements ATRIAL FIBRILLATION LEFT ANTERIOR FASCICULAR BLOCK [QRS AXIS <= -45, QR IN I, RS IN II] Compared to ECG 06/13/2022 17:55:01 Left anterior fascicular block now present Myocardial infarct finding no longer present T-wave abnormality no longer present Possible ischemia no longer present Electronically Signed On 08-07-2022 15:35:28 CDT by Padmaja Johnson M.D. [id number]
--- NOTE | 2022-08-07 11:34 | P.HP_ITS ---
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 Medications/Allergies* Home Medications Medication Instructions Recorded Confirmed Type allopurinol 300 mg tablet 300 mg PO DAILY 06/01/22 08/05/22 History amlodipine 5 mg tablet 5 mg PO DAILY 06/01/22 08/05/22 History donepezil 10 mg tablet 10 mg PO BEDTIME 06/01/22 08/05/22 History fluoxetine 20 mg capsule 20 mg PO DAILY 06/01/22 08/05/22 History gemfibrozil 600 mg tablet 600 mg PO BID 06/01/22 08/05/22 History metformin 500 mg tablet See Rx Instructions .Route .COMPLEX 06/01/22 08/05/22 History multivitamin 1 tab PO DAILY ##0 06/01/22 08/05/22 History rivaroxaban 20 mg tablet (Xarelto) 20 mg PO BEDTIME 06/01/22 08/05/22 History simvastatin 40 mg tablet 40 mg PO BEDTIME 06/01/22 08/05/22 History Allergies/Adverse Reactions Allergy/AdvReac Type Severity Reaction Status Date / Time No Known Allergies Allergy Verified 06/30/22 08:14 Current Medications: Generic Name Dose Route Start Last Admin Trade Name Freq PRN Reason Stop Dose Admin Sodium Chloride 1,000 mls @ 30 mls/hr 08/07/22 10:45 08/07/22 11:11 Sodium Chloride 0.9% IV 08/08/22 10:44 30 mls/hr .Q24H ERICKA Administration Pertinent History/Comorbid Conditions* Medical History (Updated 06/30/22 @ 10:16 by TERA Galan) Aortic stenosis Atherosclerosis of coronary artery Cognitive decline Colon cancer Depression Diabetes mellitus type 2 in obese Gout Hyperlipidemia Hypertension JOSIE (obstructive sleep apnea) Pulmonary embolism Surgical History (Updated 06/01/22 @ 09:48 by Goyo Hooper MD) History of cholecystectomy History of lung surgery Bronchogenic cyst removal History of tonsillectomy Family History (Updated 06/01/22 @ 09:48 by Goyo Hooper MD) Cancer Social History Smoking and tobacco status: never smoked Alcohol intake: never Pertinent Exam Findings alert, oriented x 3, clear to auscultation bilaterally and procedure specific exam findings (irregularly irregular) Conscious Sedation Assessment PATIENT ASSESSED PRIOR TO SEDATION, WITH NO CHANGE NOTED: Yes AIRWAY EVAL/ANESTHESIA PLAN: normal airway, ASA III, Monitored Anesthesia, R isks, benefits & alternatives of sedation and/or procedure discussed and Patient agrees to continue as planned Recommendations Surgery/Procedure today Coding Level of Care Code Acute Surgical Garment Inspector for Evelyn Zamora
--- NOTE | 2022-08-07 12:37 | USCV_ITS ---
Edwin Anderson Age: 71 Gender: M : 1950 Exam Date: 08/07/2022 13:54 Ordering Phys: Padmaja Johnson MD ([email or web address]) Technologist: NELY [place] [facility] [place]ication: A FIB BP: / HR: Rhythm: Sinus Technical Quality: Adequate MEASUREMENTS (Male / Female) Normal Values Medications Patient given IV sedation by anesthesia service, for details please refer to the anesthesia report. Complications Intubation easy. Attempts x 1. No blood on probe post procedure. Patient tolerated procedure well. Proc. Components The patient was brought to the DENIS examination room in a fasting state after obtaining an informed consent. The DENIS probe was passed into the posterior pharynx , mid-esophagus, distal esophagus, and gastric fundus. FINDINGS Left Ventricle Normal left ventricular cavity size. Mildly decreased left ventricular systolic function. Left ventricular ejection fraction is estimated at 50-55 %. Mild global hypokinesis. Right Ventricle Normal right ventricular size and systolic function. Right Atrium Normal right atrial size. Left Atrium Mildly increased left atrial size. LA Appendage Normal left atrial appendage. No thrombus visualized in the left atrial appendage. IA Septum Normal interatrial septum. No patent foramen ovale. No evidence for an atrial septal defect. Mitral Valve Mildly thickened mitral valve. No mitral valve stenosis. Mild mitral valve regurgitation. Aortic Valve Moderately thickened and calcified trileaflet aortic valve. Visually appears to be moderate aortic stenosis. Moderate aortic valve stenosis, mean gradient 10 mmHg (likely underestimated). Mild aortic valve regurgitation. Tricuspid Valve Structurally normal tricuspid valve. Trace tricuspid valve regurgitation. Pulmonic Valve Trace pulmonary valve regurgitation. Pericardium No pericardial effusion. Aorta Normal size aortic root and proximal ascending aorta. No aortic dilation, aneurysm or dissection. Grade 3 atheroma noted in proximal ascending aorta. CONCLUSIONS 1. Normal left ventricular cavity size. Mildly decreased left ventricular systolic function. Left ventricular ejection fraction is estimated at 50-55 %. Mild global hypokinesis. 2. No thrombus visualized in the left atrium/ left atrial appendage. 3. Moderately thickened and calcified trileaflet aortic valve. Possibly moderate aortic valve stenosis. Mild eccentric aortic valve regurgitation. 4. Mild mitral valve regurgitation. Padmaja Johnson MD (Electronically Signed) Final Date: 09 August 2022 08:31 S
--- NOTE | 2022-08-07 13:26 | P.ANESASSM_ITS ---
Pre-Anesthetic Assessment Height/Weight: Height 1.83 m Weight 117.48 kg Temp Pulse Resp BP Pulse Ox O2 Del Method 97.2 F L 88 18 142/78 97 08/07/22 10:54 08/07/22 10:54 08/07/22 10:54 08/07/22 10:54 08/07/22 10:54 08/07/22 10:54 Preop Diagnosis: Aortic stenosis/congestive heart failure/abnormal stress test Operation Date: 08/07/22 12:00 Proposed Procedures p DENIS(Not Applicable) - Padmaja Johnson MD s Cardioversion(Not Applicable) - Padmaja Johnson MD Familial anesthetic complications: None Was Beta Lina taken within 24 hours: N/A Was Clonidine taken within 24 hours: N/A Last intake: Intake Last Liquid Date 08/06/22 Last Liquid Time 20:00 Last Solid Date 08/06/22 Last Solid Time 18:00 Social No alcohol and No tobacco Exam alert, oriented x 3 and clear to auscultation bilaterally Airway Submandibular: within normal limits Cervical ROM: within normal limits Mallampati: Class III Dentition: full History/ROS No significant history except as noted Pulmonary Exertional Dyspnea CV/HEM Atrial Fibrillation, Coronary Artery Disease and Hypertension aortic stenosis, pulm htn, pt states he has not taken his Xarelto or any other medications since 08/04/22 because that is what he was told during his pre-op phone call- Dr. Martínez at bedside and aware that pt has not taken blood thinner. None reported Hepatic None reported GI None reported Metabolic Diabetes Mellitus [facility] [place] None reported Neuropsych None reported Anesthetic Plan ASA status: 3 Anesthesia: Anesthesia Evaluation Risk of > 500 ml blood loss (7ml/kg in children): No Medications/Allergies Home Medications Medication Instructions Recorded Confirmed Last Taken Type allopurinol 300 mg tablet 300 mg PO DAILY 06/01/22 08/05/22 08/06/22 History amlodipine 5 mg tablet 5 mg PO DAILY 06/01/22 08/05/22 08/06/22 History donepezil 10 mg tablet 10 mg PO BEDTIME 06/01/22 08/05/22 08/06/22 History fluoxetine 20 mg capsule 20 mg PO DAILY 06/01/22 08/05/22 08/06/22 History gemfibrozil 600 mg tablet 600 mg PO BID 0808/05/22 08/06/22 History metformin 500 mg tablet See Rx Instructions .Route .COMPLEX 06/01/22 08/05/22 08/06/22 History multivitamin 1 tab PO DAILY ##0 06/01/22 08/05/22 08/06/22 History rivaroxaban 20 mg tablet (Xarelto) 20 mg PO BEDTIME 06/01/22 08/05/22 08/05/22 History simvastatin 40 mg tablet 40 mg PO BEDTIME 06/01/22 08/05/22 08/06/22 History furosemide 40 mg tablet 60 mg PO BID@08,16 #90 tabs 06/16/22 08/05/22 08/06/22 Rx potassium chloride 20 mEq See Rx Instructions PO BID #90 tabs 07/23/22 08/05/22 08/06/22 Rx tablet,extended release metoprolol tartrate 50 mg tablet 75 mg PO BID@0900,2100 #120 tabs 08/07/22 08/05/22 08/06/22 Rx Allergies Allergy/AdvReac Type Severity Reaction Status Date / Time No Known Allergies Allergy Verified 06/30/22 08:14 Current Medications Generic Name Dose Route Start Last Admin Trade Name Freq PRN Reason Stop Dose Admin Sodium Chloride 1,000 mls @ 30 mls/hr 08/07/22 10:45 08/07/22 11:11 Sodium Chloride 0.9% IV 08/08/22 10:44 30 mls/hr .Q24H ERICKA Administration PFSH Anesthesia Medical History (Updated 06/30/22 @ 10:16 by TERA Galan) Aortic stenosis Atherosclerosis of coronary artery Cognitive decline Colon cancer Depression Diabetes mellitus type 2 in obese Gout Hyperlipidemia Hypertension JOSIE (obstructive sleep apnea) Pulmonary embolism Surgical History History of cholecystectomy History of lung surgery Bronchogenic cyst removal History of tonsillectomy Family History Other Cancer Social History Smoking and tobacco status: never smoked Alcohol intake: never Data Anesthesia Cardiac Studies: Echocardiogram 06/02/22 Sestamibi Stress Test (Cardiology) 06/08
[2022-08-07] MEDS: rivaroxaban 10 mg Tablet 20 MG PO (13:41)
[2022-08-07 14:20] VITALS: BP 115/68; PULSE 77; RESP 18; TEMP 36.4; O2SAT 96
--- NOTE | 2022-08-07 14:24 | SUR.OPER ---
CARDIOVERTION TO NORMAL SINUS RHYTHM WITH ONE SHOCK AT 1417
[2022-08-07 14:25] VITALS: BP 117/70; PULSE 80; RESP 18; O2SAT 97
--- NOTE | 2022-08-07 14:29 | PC.NURSE ---
1420 received patient from procedure, report received from aleksandr parks. patient placed on monitor. nsr with pvc 1428 pt awake, denies pain. respiration even and nonlabored cta, s1s2
[2022-08-07 14:35] VITALS: BP 120/78; PULSE 79; RESP 18; O2SAT 95
[2022-08-07 14:40] VITALS: BP 119/67; PULSE 85; RESP 18; O2SAT 96
--- NOTE | 2022-08-07 14:45 | ECG_ITS ---
[facility] Test Date: 2022-08-07 Pat Name: Edwin Anderson Department: Room: Gender: Male Hip Hop Artist: : 1950 Requested By: Padmaja Johnson Order Number: [id number] Lakeisha MD: Padmaja Johnson M.D. Measurements Intervals [place] Rate: 84 P: 52 OR: 205 QRS: -57 QRSD: 131 T: 7 QT: 424 QTc: 501 Interpretive Statements SINUS RHYTHM INTRAVENTRICULAR CONDUCTION DELAY [130+ ms QRS DURATION] Compared to ECG 08/07/2022 11:35:29 Intraventricular conduction delay now present Atrial fibrillation no longer present Left anterior fascicular block no longer present Electronically Signed On 08-07-2022 15:35:11 CDT by Padmaja Johnson M.D. [id number]
--- NOTE | 2022-08-07 16:11 | ANE.PACU2 ---
Inpatient post-anesthesia follow up: Airway intact: Yes Vital signs: Temperature 97.5 F Pulse Rate 85 Respiratory Rate 18 Blood Pressure 119/67 Pulse Oximetry 96 Oxygen Delivery Me thod Room Air Oxygen Flow Rate 2 Fraction of Inspir ed Oxygen Hydration adequate: Yes Nausea and vomiting: No Pain level: 1 Mental status: Baseline
== END 2022-08-07 15:15 | disposition home or self-care (01) ==
PROVIDERS: PCP Family Medicine; Visit Provider Internal Medicine Cardiovascular Disease
PROC: (CPT 93312; principal; 2022-08-07 12:00)
PROC: 5A2204Z Restoration of Cardiac Rhythm, Single (ICD-10-PCS; 2022-08-07 12:00)
DX: I48.91 Unspecified atrial fibrillation (principal); I25.10 Atherosclerotic heart disease of native coronary artery without angina pectoris; I11.0 Hypertensive heart disease with heart failure; I50.20 Unspecified systolic (congestive) heart failure; I27.20 Pulmonary hypertension, unspecified; Z85.038 Personal history of other malignant neoplasm of large intestine; E78.5 Hyperlipidemia, unspecified; G47.33 Obstructive sleep apnea (adult) (pediatric); Z86.711 Personal history of pulmonary embolism
CPT/HCPCS: 92960; 93005; 93312; 93320; 93325; J2704; J7030

== ENCOUNTER → 2022-08-18 10:38 | Outpatient (BNVA) | payer MEDICARE, SELFPAY | PROVIDERS: PCP Family Medicine; Visit Provider Nurse Practitioner Family | DX: I48.91 Unspecified atrial fibrillation (principal) | CPT/HCPCS: 93005; 99213 ==

== ENCOUNTER → 2022-09-02 09:39 | Outpatient (BNVA) | payer MEDICARE, SELFPAY | PROVIDERS: PCP Family Medicine; Visit Provider Nurse Practitioner Family | DX: I11.0 Hypertensive heart disease with heart failure (principal); I50.9 Heart failure, unspecified; E78.5 Hyperlipidemia, unspecified | CPT/HCPCS: 36415; 80048; 83880; 99214 ==

== ENCOUNTER → 2022-09-14 12:48 | Outpatient (BNVA) | payer MEDICARE, SELFPAY | PROVIDERS: PCP Family Medicine; Visit Provider Internal Medicine | DX: I48.91 Unspecified atrial fibrillation (principal); Z79.01 Long term (current) use of anticoagulants; I25.10 Atherosclerotic heart disease of native coronary artery without angina pectoris; E11.69 Type 2 diabetes mellitus with other specified complication; Z79.84 Long term (current) use of oral hypoglycemic drugs; E66.9 Obesity, unspecified; I26.99 Other pulmonary embolism without acute cor pulmonale; I11.0 Hypertensive heart disease with heart failure; I50.9 Heart failure, unspecified | CPT/HCPCS: 36415; 80048; 83880; 99214 ==

== ENCOUNTER 2022-10-02 10:33 | Outpatient (CLI) | payer MEDICARE, SELFPAY ==
[2022-10-02 11:38] LABS: Anion Gap 17.9 (5-19); Blood Urea Nitrogen 63 mg/dL (8-23); Carbon Dioxide 32 mmol/L (22-29); Chloride 89 mmol/L (98-107); Glomerular Filtration Rate 33.3 mL/min (90-130); Glucose 281 mg/dL (65-115); NT Pro B Type Natriuretic Pept 1399 pg/mL (0-125); Osmolality Calculated 310 mOsm/kg (285-295); Sodium 136 mmol/L (136-145)
[2022-10-02 11:48] LABS: Potassium 2.9 mmol/L (3.5-5.1)
== END 2022-10-02 10:34 | disposition home or self-care (01) ==
LOC: LAB 10:37
PROVIDERS: PCP Family Medicine; Visit Provider Internal Medicine
DX: I10 Essential (primary) hypertension (principal); I26.99 Other pulmonary embolism without acute cor pulmonale; I48.91 Unspecified atrial fibrillation
CPT/HCPCS: 36415; 80048; 83880

== ENCOUNTER 2022-10-08 09:54 | Outpatient (CLI) | payer MEDICARE, SELFPAY ==
[2022-10-08 11:28] LABS: Anion Gap 14.1 (5-19); Blood Urea Nitrogen 33 mg/dL (8-23); Calcium 10.1 mg/dL (8.5-10.5); Carbon Dioxide 30 mmol/L (22-29); Chloride 97 mmol/L (98-107); Glomerular Filtration Rate 43.1 mL/min (90-130); Glucose 153 mg/dL (65-115); NT Pro B Type Natriuretic Pept 3033 pg/mL (0-125); Osmolality Calculated 294 mOsm/kg (285-295); Potassium 4.1 mmol/L (3.5-5.1); Sodium 137 mmol/L (136-145)
== END 2022-10-08 09:55 | disposition home or self-care (01) ==
PROVIDERS: PCP Family Medicine; Visit Provider Internal Medicine
DX: I25.10 Atherosclerotic heart disease of native coronary artery without angina pectoris (principal); I48.91 Unspecified atrial fibrillation; I50.9 Heart failure, unspecified; E11.69 Type 2 diabetes mellitus with other specified complication; E66.9 Obesity, unspecified; I26.99 Other pulmonary embolism without acute cor pulmonale
CPT/HCPCS: 36415; 80048; 83880

== ENCOUNTER 2022-10-26 09:54 | Outpatient (CLI) | payer MEDICARE, SELFPAY ==
[2022-10-26 11:13] LABS: Anion Gap 16.5 (5-19); Blood Urea Nitrogen 52 mg/dL (8-23); Calcium 9.7 mg/dL (8.5-10.5); Carbon Dioxide 29 mmol/L (22-29); Chloride 93 mmol/L (98-107); Glomerular Filtration Rate 37.6 mL/min (90-130); Glucose 244 mg/dL (65-115); NT Pro B Type Natriuretic Pept 1673 pg/mL (0-125); Osmolality Calculated 302 mOsm/kg (285-295); Potassium 3.5 mmol/L (3.5-5.1); Sodium 135 mmol/L (136-145)
== END 2022-10-26 09:55 | disposition home or self-care (01) ==
LOC: LAB 09:59
PROVIDERS: PCP Family Medicine; Visit Provider Internal Medicine
DX: I10 Essential (primary) hypertension (principal); I48.91 Unspecified atrial fibrillation
CPT/HCPCS: 36415; 80048; 83880

== ENCOUNTER 2022-11-26 10:41 | Outpatient (CLI) | payer MEDICARE, SELFPAY ==
[2022-11-26 11:31] LABS: Estmated Average Glucose 146; Hemoglobin A1C 6.7 % (4.0-6.0)
[2022-11-26 11:47] LABS: Anion Gap 17.4 (5-19); Blood Urea Nitrogen 62 mg/dL (8-23); Calcium 9.9 mg/dL (8.5-10.5); Carbon Dioxide 30 mmol/L (22-29); Chloride 88 mmol/L (98-107); Glomerular Filtration Rate 33.3 mL/min (90-130); Glucose 165 mg/dL (65-115); NT Pro B Type Natriuretic Pept 443 pg/mL (0-125); Osmolality Calculated 295 mOsm/kg (285-295); Potassium 3.4 mmol/L (3.5-5.1); Sodium 132 mmol/L (136-145)
== END 2022-11-26 10:42 | disposition home or self-care (01) ==
LOC: LAB 10:46
PROVIDERS: PCP Family Medicine; Referring Provider Internal Medicine; Visit Provider Family Medicine
DX: E11.9 Type 2 diabetes mellitus without complications (principal); I11.0 Hypertensive heart disease with heart failure; I26.99 Other pulmonary embolism without acute cor pulmonale; I48.91 Unspecified atrial fibrillation; I50.9 Heart failure, unspecified
CPT/HCPCS: 36415; 80048; 83036; 83880

== ENCOUNTER 2022-12-11 10:29 | Outpatient (CLI) | payer MEDICARE, SELFPAY ==
[2022-12-11 11:40] LABS: Anion Gap 18.4 (5-19); Blood Urea Nitrogen 46 mg/dL (8-23); Calcium 9.9 mg/dL (8.5-10.5); Carbon Dioxide 29 mmol/L (22-29); Chloride 93 mmol/L (98-107); Glomerular Filtration Rate 35.3 mL/min (90-130); Glucose 205 mg/dL (65-115); NT Pro B Type Natriuretic Pept 450 pg/mL (0-125); Osmolality Calculated 302 mOsm/kg (285-295); Potassium 3.4 mmol/L (3.5-5.1); Sodium 137 mmol/L (136-145)
== END 2022-12-11 10:30 | disposition home or self-care (01) ==
LOC: LAB 10:41
PROVIDERS: PCP Family Medicine; Visit Provider Internal Medicine
DX: I10 Essential (primary) hypertension (principal); I48.91 Unspecified atrial fibrillation; I50.9 Heart failure, unspecified
CPT/HCPCS: 36415; 80048; 83880

== ENCOUNTER 2023-01-11 09:43 | Outpatient (CLI) | payer MEDICARE, SELFPAY ==
[2023-01-11 11:45] LABS: Anion Gap 13.7 (5-19); Blood Urea Nitrogen 26 mg/dL (8-23); Calcium 9.2 mg/dL (8.5-10.5); Carbon Dioxide 26 mmol/L (22-29); Chloride 101 mmol/L (98-107); Glomerular Filtration Rate 46.3 mL/min (90-130); Glucose 154 mg/dL (65-115); NT Pro B Type Natriuretic Pept 796 pg/mL (0-125); Osmolality Calculated 292 mOsm/kg (285-295); Potassium 3.7 mmol/L (3.5-5.1); Sodium 137 mmol/L (136-145)
== END 2023-01-11 09:44 | disposition home or self-care (01) ==
LOC: LAB 09:47
PROVIDERS: PCP Family Medicine; Visit Provider Internal Medicine
DX: I48.91 Unspecified atrial fibrillation (principal); I50.9 Heart failure, unspecified
CPT/HCPCS: 80048; 83880

== ENCOUNTER → 2023-02-26 09:24 | Outpatient (BNVA) | payer MEDICARE, SELFPAY | PROVIDERS: PCP Family Medicine; Visit Provider Nurse Practitioner Family | DX: I11.0 Hypertensive heart disease with heart failure (principal); I50.9 Heart failure, unspecified; I35.0 Nonrheumatic aortic (valve) stenosis; I25.10 Atherosclerotic heart disease of native coronary artery without angina pectoris; I48.91 Unspecified atrial fibrillation; Z79.01 Long term (current) use of anticoagulants | CPT/HCPCS: 99214 ==

== ENCOUNTER 2023-03-22 14:40 | Outpatient (CLI) | payer MEDICARE, SELFPAY ==
--- NOTE | 2023-03-22 14:41 | USCV_ITS ---
Edwin Anderson Age: 72 Gender: M : 1950 Exam Date: 03/22/2023 15:17 Ordering Phys: Kendal Galindo Technologist: CT Exam Location: [facility] [place] Indication: ao stenosis BP: 160 / 78 HR: 79 Rhythm: Sinus Technical Quality: Adequate MEASUREMENTS (Male / Female) Normal Values 2D ECHO LV Diastolic Diameter PLAX 5.4 cm 4.2 - 5.9 / 3.9 - 5.3 cm LV Systolic Diameter PLAX 4.4 cm LV Chamber Size 6.0 cm IVS Diastolic Thickness 2.0 cm 0.6 - 1.0 / 0.6 - 0.9 cm IVS Systolic Thickness 3.1 cm LVPW Diastolic Thickness 1.2 cm 0.6 - 1.0 / 0.6 - 0.9 cm LVPW Systolic Thickness 1.4 cm RV Chamber Size 4.0 cm LVOT Diameter 2.7 cm LV Ejection Fraction 2D Teich 38.1 % LV Ejection Fraction MOD 2C 67.7 % LV Ejection Fraction 2C AL 66.0 % LA Diameter 5.4 cm LA Width 4.8 cm LA Height 5.9 cm RA Width 3.9 cm RA Height 4.7 cm Aorta at Sinotubular Diameter 3.6 cm IVC Diameter 2.5 cm M-MODE Aortic Annulus Diameter 3.7 cm LA Ao Ratio MM 1.6 MV E Point Septal Separation 0.8 cm DOPPLER AV Peak Velocity 347.0 cm/s LVOT Peak Velocity 107.0 cm/s AV Area Cont Eq vti 1.6 cm squared AV Area Cont Eq pk 1.7 cm squared MV Area PHT 4.4 cm squared Mitral E to A Ratio 0.8 MV E' Velocity 42.0 cm/s Mitral E to MV E' Ratio 13.4 Mitral E to LV E' Lateral Ratio 14.4 Mitral E to LV E' Septal Ratio 12.8 TR Peak Velocity 415.4 cm/s TR Peak Gradient 69.0 mmHg TR Mean Velocity 291.3 cm/s TR Mean Gradient 44.9 mmHg TR Velocity Time Integral 111.7 cm TV Peak E Velocity 83.0 cm/s Right Atrial Pressure 15.0 mmHg Pulmonary Artery Systolic Pressu 84.0 mmHg FINDINGS Left Ventricle Normal left ventricular size, systolic function and wall thickness, with no regional wall motion abnormalities. Grade I/IV diastolic dysfunction (abnormal relaxation filling pattern), normal to mildly elevated filling pressures. Left ventricular ejection fraction is estimated at 65 %. Right Ventricle Normal right ventricular size and systolic function. The pulmonary artery pressure is measured at 84 mmHg. This may be an overestimation since the tricuspid regurgitation jet appears inadequate. Right Atrium Normal right atrial size. Right atrial pressure is 15 mmHg Left Atrium Mildly increased left atrial size. Mitral Valve Structurally normal mitral valve. Mild mitral valve regurgitation. Aortic Valve Structurally normal trileaflet aortic valve. Mild aortic valve calcification. Mild to moderate aortic valve stenosis, mean gradient 34.5 mmHg, SAMUEL 1.6 cm squared. Mild aortic valve regurgitation. Tricuspid Valve Structurally normal tricuspid valve. Mild tricuspid valve stenosis. Pulmonic Valve Pulmonic valve not well visualized. Mild pulmonary valve regurgitation. Pericardium Normal pericardium without effusion. Aorta Normal ascending aorta dimension. IVC The inferior vena cava does not appear to collapse normally with respiration. Right atrial pressure 15 mmHg. CONCLUSIONS Normal left ventricular size, systolic function and wall thickness, with no regional wall motion abnormalities. Grade I/IV diastolic dysfunction (abnormal relaxation filling pattern), normal to mildly elevated filling pressures. Left ventricular ejection fraction is estimated at 65 %. Normal right ventricular size and systolic function. The pulmonary artery pressure is measured at 84 mmHg. This may be an overestimation since the tricuspid regurgitation jet appears inadequate. Normal right atrial size. Right atrial pressure is 15 mmHg. Mildly increased left atrial size. Structurally normal mitral valve. Mild mitral valve regurgitation. Structurally normal trileaflet aortic valve. Mild aortic valve calcification. Mild to moderate aortic valve stenosis, mean gradient 34.5 mmHg, SAMUEL 1.6 cm squared. Mild aortic valve regurgitation. The inferior vena cava does not appear to collapse normally with respiration. Right atrial pressure 15 mmHg. From the previous transthoracic echo in May 2022 the pulmonary artery pressure may be higher. Otherwise there has been no change. A transesophageal echocardiogram was performed in August of last year. Today's study reveals no change from the DENIS. Dr. Amando Gross MD (Electronically Signed) Final Date: 23 March 2023 08:03 S
== END 2023-03-22 14:41 | disposition home or self-care (01) ==
PROVIDERS: PCP Family Medicine; Visit Provider Nurse Practitioner Family
DX: I35.0 Nonrheumatic aortic (valve) stenosis (principal); I50.9 Heart failure, unspecified
CPT/HCPCS: 93306; 99214

== ENCOUNTER → 2023-03-29 13:14 | Outpatient (BNVA) | payer MEDICARE, SELFPAY | PROVIDERS: PCP Family Medicine; Visit Provider Internal Medicine Cardiovascular Disease | DX: I11.0 Hypertensive heart disease with heart failure (principal); I50.9 Heart failure, unspecified; G47.33 Obstructive sleep apnea (adult) (pediatric); I35.0 Nonrheumatic aortic (valve) stenosis; E11.69 Type 2 diabetes mellitus with other specified complication; E66.9 Obesity, unspecified; I26.99 Other pulmonary embolism without acute cor pulmonale; I48.91 Unspecified atrial fibrillation; Z98.890 Other specified postprocedural states; Z86.79 Personal history of other diseases of the circulatory system; E78.5 Hyperlipidemia, unspecified; Z79.01 Long term (current) use of anticoagulants; Z68.37 Body mass index [BMI] 37.0-37.9, adult; Z79.84 Long term (current) use of oral hypoglycemic drugs | CPT/HCPCS: 99215 ==

== ENCOUNTER → 2023-07-14 12:40 | Outpatient (BNVA) | payer MEDICARE, SELFPAY | PROVIDERS: PCP Family Medicine; Visit Provider Internal Medicine Cardiovascular Disease | DX: I48.91 Unspecified atrial fibrillation (principal); Z79.01 Long term (current) use of anticoagulants; E78.5 Hyperlipidemia, unspecified; Z98.890 Other specified postprocedural states; Z86.79 Personal history of other diseases of the circulatory system; I25.10 Atherosclerotic heart disease of native coronary artery without angina pectoris; G47.33 Obstructive sleep apnea (adult) (pediatric); I35.0 Nonrheumatic aortic (valve) stenosis; E11.69 Type 2 diabetes mellitus with other specified complication; Z79.84 Long term (current) use of oral hypoglycemic drugs; E66.9 Obesity, unspecified; Z68.37 Body mass index [BMI] 37.0-37.9, adult; I26.99 Other pulmonary embolism without acute cor pulmonale; I10 Essential (primary) hypertension | CPT/HCPCS: 99214 ==

== ENCOUNTER → 2024-01-31 12:08 | Outpatient (BNVA) | payer MEDICARE, SELFPAY | PROVIDERS: PCP Family Medicine; Visit Provider Internal Medicine Cardiovascular Disease | DX: Z86.711 Personal history of pulmonary embolism (principal); E78.5 Hyperlipidemia, unspecified; I48.91 Unspecified atrial fibrillation; R06.09 Other forms of dyspnea; I35.0 Nonrheumatic aortic (valve) stenosis; I25.10 Atherosclerotic heart disease of native coronary artery without angina pectoris; Z98.890 Other specified postprocedural states; Z86.79 Personal history of other diseases of the circulatory system; I11.0 Hypertensive heart disease with heart failure; I50.9 Heart failure, unspecified; Z79.01 Long term (current) use of anticoagulants | CPT/HCPCS: 99214 ==

== ENCOUNTER → 2024-08-16 10:11 | Outpatient (BNVA) | payer MEDICARE, SELFPAY | PROVIDERS: PCP Family Medicine; Visit Provider Nurse Practitioner Family | DX: I25.10 Atherosclerotic heart disease of native coronary artery without angina pectoris (principal); I48.0 Paroxysmal atrial fibrillation; I35.0 Nonrheumatic aortic (valve) stenosis; I12.9 Hypertensive chronic kidney disease with stage 1 through stage 4 chronic kidney disease, or unspecified chronic kidney disease; N18.9 Chronic kidney disease, unspecified; I26.99 Other pulmonary embolism without acute cor pulmonale; G47.33 Obstructive sleep apnea (adult) (pediatric); Z87.891 Personal history of nicotine dependence | CPT/HCPCS: 99214 ==

== ENCOUNTER → 2025-02-13 15:40 | Outpatient (BNVA) | payer MEDICARE, SELFPAY | PROVIDERS: PCP Family Medicine; Visit Provider Internal Medicine Cardiovascular Disease | DX: I48.0 Paroxysmal atrial fibrillation (principal); Z79.01 Long term (current) use of anticoagulants; I10 Essential (primary) hypertension; G47.33 Obstructive sleep apnea (adult) (pediatric); I35.0 Nonrheumatic aortic (valve) stenosis; Z86.711 Personal history of pulmonary embolism; Z87.891 Personal history of nicotine dependence; R01.1 Cardiac murmur, unspecified | CPT/HCPCS: 99214 ==

== ENCOUNTER 2025-03-30 11:45 | Outpatient (CLI) | payer MEDICARE, SELFPAY | END 2025-03-30 11:46 | disposition home or self-care (01) | LOC: RAD 11:46 | PROVIDERS: PCP Family Medicine; Visit Provider Internal Medicine Cardiovascular Disease | DX: I35.0 Nonrheumatic aortic (valve) stenosis (principal); I50.9 Heart failure, unspecified | CPT/HCPCS: 93306 ==

== ENCOUNTER 2025-08-17 15:38 | Inpatient (IN) | payer MEDICARE, SELFPAY ==
[2025-08-17] VITALS (14 sets, daily range): BP systolic 114–141; BP diastolic 60–77; PULSE 93–115; RESP 14–20; TEMP 36.4–36.9; O2SAT 95–100; BMI 34.5
--- NOTE | 2025-08-17 15:55 | ECG_ITS ---
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 Measurements Intervals [place] Rate: 115 P: 263 [place]: 183 QRS: -70 QRSD: 142 T: 76 QT: 334 QTc: 464 Interpretive Statements SINUS TACHYCARDIA LEFT AXIS DEVIATION [QRS AXIS < -30] INTRAVENTRICULAR CONDUCTION DELAY [130+ ms QRS DURATION] INTERPRETATION BASED ON A DEFAULT AGE OF 40 YEARS Compared to ECG 08/07/2022 14:45:36 Left-axis deviation now present Sinus rhythm no longer present Electronically Signed On 08-18-2025 08:31:01 [employer]ACHT by Hiram Apple M.D. [id number]
--- NOTE | 2025-08-17 15:55 | XRR_ITS ---
PROCEDURE INFORMATION: Exam: XR Chest Exam date and time: 08/17/2025 4:57 PM Age: 74 years old Clinical indication: Shortness of breath; HX of cardiac ablation, lung cyst removal, gb removed; Additional info: SOB, HX afib/chf TECHNIQUE: Imaging protocol: Radiologic exam of the chest. Views: 1 view. COMPARISON: CR XR chest 1V portable [id number] 06/13/2022 11:44 AM FINDINGS: Lungs: Unremarkable. No consolidation. Pleural spaces: Unremarkable. No pleural effusion. No pneumothorax. Heart/Mediastinum: Cardiac silhouette is enlarged. Bones/joints: Old left rib fractures. Soft tissues: Right axillary surgical clips. XR/XR chest 1V portable [id number] IMPRESSION: No acute cardiopulmonary findings.
[2025-08-17 16:39] LABS: ABG PCO2 22.1 mmHg (35-45); ABG PH Result 7.44 (7.35-7.45); Arterial Blood Gas Hematocrit 42.6 % (42-52); Blood Gas Allen Test Pos; Blood Gas Sample Type Arterial; Carboxyhemoglobin 1.0 %THgb (0.4-20.1); HCO3 ABG 15.1 mmol/L (22-26); Methemoglobin 0.8 % (0.4-1.5); PO2 ABG 98.2 mmHg (80.0-100.0)
[2025-08-17 16:48] LABS: INR 1.96 (0.8-1.2); Prothrombin Time 23.50 SECONDS (12.1-14.9)
[2025-08-17 16:49] LABS: Blood Gas Operator Identificat MONRO; Blood Gas Sample Site Radial, right; PO2 FiO2 Ratio Arterial Blood 467
[2025-08-17 16:49] LABS: Partial Thromboplastin Time 47.5 SECONDS (23.9-36.7)
--- NOTE | 2025-08-17 16:52 | W.ED.SOB ---
Documented by User: Marcos Mahmood MD 08/17/25 18:13 HPI - SOB/Dyspnea General: Chief Complaint: Shortness of Breath/Dyspnea Stated Complaint: SOB / Weakness Time Seen by Provider: 08/17/25 15:53 History of Present Illness: HPI Narrative: 74-year-old male past medical history significant for hypertension, diabetes, obstructive sleep apnea, atrial fibrillation, aortic stenosis, congestive heart failure, hyperlipidemia, provoked PE postoperatively currently on Xarelto, presenting to the emergency department with acute onset of dyspnea that he reports started after he went to [place] and had to carry a 50 pound bag of dog food reports that the symptoms started after getting home and walking from the gate to the house, became acutely short of breath while not carrying anything and reports that the shortness of breath has persisted since then at rest or during exertion, no associated chest pain but does endorse some chest tightness, no fevers, no cough, was in his usual state of health as recently as this morning, no leg swelling, compliant with all prescribed medications. Related Data Home Medications ?Medication ?Instructions ?Recorded ?Confirmed allopurinol 300 mg tablet 300 mg PO DAILY 06/01/22 02/13/25 donepezil 10 mg tablet 10 mg PO BEDTIME 06/01/22 02/13/25 fluoxetine 20 mg capsule 20 mg PO DAILY 06/01/22 02/13/25 gemfibrozil 600 mg tablet 600 mg PO BID 06/01/22 02/13/25 multivitamin 1 tab PO DAILY ##0 06/01/22 02/13/25 simvastatin 40 mg tablet 40 mg PO BEDTIME 06/01/22 02/13/25 semaglutide 0.25 mg or 0.5 mg (2 mg SUBCUT 01/31/24 02/13/25 mg/3 mL) subcutaneous pen injector (Ozempic) Previous Rx's ?Medication ?Instructions ?Recorded metoprolol tartrate 50 mg tablet 75 mg (1.5 x 50 mg) PO 08/07/22 BID@0900,2100 #120 tabs rivaroxaban 20 mg tablet (Xarelto) 20 mg PO BEDTIME #90 tabs 09/14/22 hydralazine 10 mg tablet See Rx Instructions .Route 01/11/25 .COMPLEX #90 tabs amlodipine 10 mg tablet 10 mg PO DAILY #90 tabs 01/24/25 potassium chloride 20 mEq See Rx Instructions .Route 02/02/25 tablet,extended release(part/cryst) .COMPLEX #270 tabs losartan 100 mg tablet See Rx Instructions .Route 07/30/25 .COMPLEX #90 tabs spironolactone 25 mg tablet See Rx Instructions .Route 07/30/25 .COMPLEX #90 tabs Allergies Allergy/AdvReac Type Severity Reaction Status Date / Time No Known Allergies Allergy Verified 02/13/25 16:32 PFSH ED PFSH: Medical History Anticoagulation adequate with anticoagulant therapy Atherosclerosis of coronary artery JOSIE (obstructive sleep apnea) Aortic stenosis Diabetes mellitus type 2 in obese Hypertension Depression Hyperlipidemia Cognitive decline Gout Colon cancer Pulmonary embolism Surgical History S/P ablation of atrial fibrillation History of lung surgery Bronchogenic cyst removal History of cholecystectomy History of tonsillectomy Family History Other Cancer Social History Smoking and tobacco/nicotine status: former use of tobacco/nicotine Alcohol intake: never Physical Exam Narrative: EXAM NARRATIVE: Gen: A&Ox4, no acute distress, nontoxic appearing HEENT: Normocephalic, atraumatic, no scleral icterus, external ears normal, moist mucous membranes Neck: Supple, full range of motion, no observable masses Lungs: Patient is tachypneic with respiratory rate in the mid 20s, no accessory muscle usage, speaking in full sentences, lungs clear to auscultation bilaterally, no wheezing or rales CV: Mildly tachycardic to the 110 115 range, regular rhythm, borderline wide-complex on cardiac technician, no murmur, no pitting edema to lower extremities bilaterally Abdomen: Soft, nondistended, nontender to palpation MSK: No joint swelling, FROM all 4 extremities Skin: No rashes, petechiae, lesions. Normal color per patient. Neuro: Alert and oriented, no slurred speech, sensation and strength grossly intact all 4 extremities Psych: Appropriate for situation. Course Reevaluation(s): Reevaluation #1: Patient reevaluated, still mildly tachycardic, still mildly tachypneic but without acute respiratory distress or significant hypoxia, blood pressure appropriate, chest x-ray appears clear, blood work showing acute kidney injury with a creatinine 2.7 from baseline in the 2 range with acute hyperkalemia 6.1, plan medically manage hyperkalemia with cocktail, IV fluid given patient appears dry which should help heart rate, pending CTA rule out pulmonary embolism which is at least moderate pretest probability given patient's previous history of PE and significant tachypnea without any marked acidemia on blood gas, outweighs risks of possible contrast-induced nephropathy in my medical judgment, patient will require admission for management of his kidney derangements. Time: 18:08 Reevaluation #2: Repeat EKG showing what appears to be in atrial flutter mildly rapid that it terminates at the end of the strip into sinus rhythm Time: 18:12 Vital Signs: Vital signs: Vital Signs Temperature 97.5 F L 08/17/25 15:42 Pulse Rate 93 08/17/25 20:26 Respiratory Rate 17 08/17/25 20:26 Blood Pressure 141/73 08/17/25 19:08 Pulse Oximetry 99 08/17/25 20:26 Oxygen Delivery Me thod Room Air 08/17/25 20:26 MDM - SOB/Dyspnea Medical Decision Making 74-year-old male history of heart failure aortic stenosis atrial fibrillation and provoked PE in the past compliant with anticoagulation presenting emergency department with acute onset dyspnea on minimal exertion and now at rest times several hours, no associated isaura chest pain, EKG showing what appears to be sinus tachycardia with intraventricular conduction delay but no acute ischemia, appears regular with visible atrial activity does not appear consistent with atrial fibrillation, he does appear tachypneic, he does have a history of rhh-nkklfvm-iwtgwlwpk diabetes, plan for blood gas to assess for metabolic acidosis, chest x-ray, cardiac evaluation, D-dimer, reassess for disposition Lab Data Labs with hyper-K 6.1, SYLVIA creatinine 2.7, mild hyponatremia 133, acidemia 14 without significant metabolic acidosis on blood gas, chest x-ray appears clear without significant pulmonary edema 08/17/25 16:09 08/17/25 17:45 Labs/Radiology: Radiology Impressions Chest X-Ray 08/17/25 15:55 IMPRESSION: No acute cardiopulmonary findings. Laboratory Results WBC 6.44 10^3/uL (3.29-11.43) 08/17/25 16:09 RBC 4.57 10^6/uL (3.85-5.65) 08/17/25 16:09 Hgb 13.40 g/dL (11.27-16.99) 08/17/25 16:09 Hct 40.6 % (37-53) 08/17/25 16:09 MCV 88.8 fl (82-101) 08/17/25 16:09 MCH 29.3 pg (27-33) 08/17/25 16:09 MCHC 33.0 g/dL (30-55) 08/17/25 16:09 RDW 14.3 % (12.1-15.1) 08/17/25 16:09 Plt Count 163 10^3/cmm (157-399) 08/17/25 16:09 MPV 12.3 fL (7.4-10.4) H 08/17/25 16:09 Neut % (Auto) 76.5 % 08/17/25 16:09 Lymph % (Auto) 13.2 % 08/17/25 16:09 Carolina % (Auto) 7.6 % 08/17/25 16:09 Eos % (Auto) 1.4 % 08/17/25 16:09 Baso % (Auto) 0.5 % 08/17/25 16:09 Neut # (Auto) 4.93 10^3/uL (1.8-7.7) 08/17/25 16:09 Lymph # (Auto) 0.9 10^3/uL (0.8-4.8) 08/17/25 16:09 Carolina # (Auto) 0.5 10^3/uL (0.2-0.9) 08/17/25 16:09 Eos # (Auto) 0.1 10^3/uL (0.0-0.8) 08/17/25 16:09 Baso # (Auto) 0.0 10^3/uL (0.0-0.1) 08/17/25 16:09 Nucleated RBC % (auto) 0 % 08/17/25 16:09 Nucleated RBCs # 0.0 /100WBC 08/17/25 16:09 PT 23.50 SECONDS (12.1-14.9) H 08/17/25 16:09 INR 1.96 (0.8-1.2) H 08/17/25 16:09 APTT 47.5 SECONDS (23.9-36.7) H 08/17/25 16:09 D-Dimer 0.29 ug/mLFEU (0-0.59) 08/17/25 16:09 Specimen Type Arterial 08/17/25 16:27 Sample Site Radial, right 08/17/25 16:27 ABG pH 7.44 (7.35-7.45) 08/17/25 16:27 ABG pCO2 22.1 mmHg (35-45) L 08/17/25 16:27 ABG pO2 98.2 mmHg (80.0-100.0) 08/17/25 16:27 ABG PO2/FiO2 Ratio 467 08/17/25 16:27 ABG HCO3 15.1 mmol/L (22-26) L 08/17/25 16:27 ABG Base Excess -6.8 mmol/L (-2.0-2.0) L 08/17/25 16:27 Antonio Test Pos 08/17/25 16:27 Hematocrit 42.6 % (42-52) 08/17/25 16:27 Hgb O2 Saturation 97.0 % (95-100) 08/17/25 16:27 Carboxyhemoglobin 1.0 %THgb (0.4-20.1) 08/17/25 16:27 Methemoglobin 0.8 % (0.4-1.5) 08/17/25 16:27 Total Hemoglobin 13.9 g/dL (14-18) L 08/17/25 16:27 O2 Delivery Device Room air 08/17/25 16:27 FiO2 21.0 % 08/17/25 16:27 Design Verification Engineer ID Monro 08/17/25 16:27 Sodium 133 mmol/L (136-145) L 08/17/25 16:09 Potassium 5.4 mmol/L (3.5-5.1) H 08/17/25 17:45 Chloride 103 mmol/L (98-107) 08/17/25 16:09 Carbon Dioxide 14 mmol/L (22-29) L 08/17/25 16:09 Anion Gap 22.1 (5-19) H 08/17/25 16:09 BUN 53 mg/dL (8-23) H 08/17/25 16:09 Creatinine 2.7 mg/dL (0.7-1.2) H 08/17/25 16:09 GFR Calculation Not Reportable 08/17/25 16:09 Glucose 103 mg/dL (65-115) 08/17/25 16:09 POC Glucose 130 mg/dL (70-110) H 08/17/25 19:30 Calculated Osmolality 291 mOsm/kg (285-295) 08/17/25 16:09 Calcium 9.6 mg/dL (8.5-10.5) 08/17/25 16:09 Total Bilirubin 0.5 mg/dL (0.15-1.2) 08/17/25 16:09 AST 15 U/L (0-40) 08/17/25 16:09 ALT 8 U/L (0-41) 08/17/25 16:09 Alkaline Phosphatase 80 U/L (40-130) 08/17/25 16:09 Creatine Kinase 65 U/L (39-308) 08/17/25 17:45 Troponin T Baseline 30 ng/L (0-15) H 08/17/25 16:09 Troponin T 120 Minute 31.19 ng/L (0-15) H 08/17/25 17:45 Delta Troponin T 1.19 ABS# (0-10) 08/17/25 17:45 NT-Pro-B Natriuret Pep 131 pg/mL (0-125) H 08/17/25 16:09 Total Protein 6.4 g/dL (6.6-8.7) L 08/17/25 16:09 Albumin 4.2 g/dL (3.5-5.2) 08/17/25 16:09 Globulin 2.2 g/dL (1.3-4.6) 08/17/25 16:09 TSH 5.34 uIU/mL (0.27-4.20) H 08/17/25 16:09 Free T4 1.07 ng/dL (0.82-1.77) 08/17/25 16:09 Influenza A (PCR) Negative (Negative) 08/17/25 16:30 Influenza Type B (PCR) Negative (Negative) 08/17/25 16:30 RSV (PCR) Negative (Negative) 08/17/25 16:30 SARS-CoV-2 (PCR) Negative (Negative) 08/17/25 16:30 All radiology interpretation(s) finalized by discharge ED provider radiology interpretation(s): Chest x-ray no significant pulmonary edema EKG Data EKG 1: I personally reviewed and interpreted this EKG as follows: EKG Interpretation Date: 08/17/25 EKG interpretation time: 15:50 Interpretation: Sinus tachycardia 115 bpm, left axis deviation, no STEMI, no ectopy, QTc 402 ms EKG 2: I personally reviewed and interpreted this EKG as follows: EKG Interpretation Date: 08/17/25 EKG interpretation time: 18:11 Interpretation: EKG appears to show an atrial flutter that is terminating into sinus rhythm at the end of the strip, rate 111, no STEMI, QTc 410 ms ABG Data ABG Interpretation 1: ABG results: pH 7.44, pCO2 22.1, calculated HCO3 15 Interpretation: Respiratory alkalosis with possible mixed metabolic acidosis or compensatory metabolic acidosis Discharge Plan Discharge Patient Disposition: Admitted As Inpatient Clinical Impression: SYLVIA (acute kidney injury), Hyperkalemia, Atrial fibrillation with rapid ventricular response Condition: Stable Coding Level of Care Code ED Marketing Traffic Coordinator for Chg Fwd Documented by User: Pankaj Armas DO 08/17/25 21:08 HPI - SOB/Dyspnea General: Chief Complaint: Shortness of Breath/Dyspnea Stated Complaint: SOB / Weakness Time Seen by Provider: 08/17/25 15:53 Related Data Home Medications ?Medication ?Instructions ?Recorded ?Confirmed allopurinol 300 mg tablet 300 mg PO DAILY 06/01/22 02/13/25 donepezil 10 mg tablet 10 mg PO BEDTIME 06/01/22 02/13/25 fluoxetine 20 mg capsule 20 mg PO DAILY 06/01/22 02/13/25 gemfibrozil 600 mg tablet 600 mg PO BID 06/01/22 02/13/25 multivitamin 1 tab PO DAILY ##0 06/01/22 02/13/25 simvastatin 40 mg tablet 40 mg PO BEDTIME 06/01/22 02/13/25 semaglutide 0.25 mg or 0.5 mg (2 mg SUBCUT 01/31/24 02/13/25 mg/3 mL) subcutaneous pen injector (Ozempic) Previous Rx's ?Medication ?Instructions ?Recorded metoprolol tartrate 50 mg tablet 75 mg (1.5 x 50 mg) PO 08/07/22 BID@0900,2100 #120 tabs rivaroxaban 20 mg tablet (Xarelto) 20 mg PO BEDTIME #90 tabs 09/14/22 hydralazine 10 mg tablet See Rx Instructions .Route 01/11/25 .COMPLEX #90 tabs amlodipine 10 mg tablet 10 mg PO DAILY #90 tabs 01/24/25 potassium chloride 20 mEq See Rx Instructions .Route 02/02/25 tablet,extended release(part/cryst) .COMPLEX #270 tabs losartan 100 mg tablet See Rx Instructions .Route 07/30/25 .COMPLEX #90 tabs spironolactone 25 mg tablet See Rx Instructions .Route 07/30/25 .COMPLEX #90 tabs Allergies Allergy/AdvReac Type Severity Reaction Status Date / Time No Known Allergies Allergy Verified 02/13/25 16:32 PFSH ED PFSH: Medical History Anticoagulation adequate with anticoagulant therapy Atherosclerosis of coronary artery JOSIE (obstructive sleep apnea) Aortic stenosis Diabetes mellitus type 2 in obese Hypertension Depression Hyperlipidemia Cognitive decline Gout Colon cancer Pulmonary embolism Surgical History S/P ablation of atrial fibrillation History of lung surgery Bronchogenic cyst removal History of cholecystectomy History of tonsillectomy Family History Other Cancer Social History Smoking and tobacco/nicotine status: former use of tobacco/nicotine Alcohol intake: never Course Vital Signs: Vital signs: Vital Signs Temperature 97.5 F L 08/17/25 15:42 Pulse Rate 93 08/17/25 20:26 Respiratory Rate 17 08/17/25 20:26 Blood Pressure 141/73 08/17/25 19:08 Pulse Oximetry 99 08/17/25 20:26 Oxygen Delivery Me thod Room Air 08/17/25 20:26 MDM - SOB/Dyspnea Medical Decision Making 74-year-old male history of heart failure aortic stenosis atrial fibrillation and provoked PE in the past compliant with anticoagulation presenting emergency department with acute onset dyspnea on minimal exertion and now at rest times several hours, no associated isaura chest pain, EKG showing what appears to be sinus tachycardia with intraventricular conduction delay but no acute ischemia, appears regular with visible atrial activity does not appear consistent with atrial fibrillation, he does appear tachypneic, he does have a history of orj-wywueeu-nruetqpdb diabetes, plan for blood gas to assess for metabolic acidosis, chest x-ray, cardiac evaluation, D-dimer, reassess for disposition D-dimer is negative. The patient's potassium is quite high. He has not SYLVIA with a creatinine of 2.7. He is given sodium bicarbonate, calcium gluconate, insulin, albuterol, and Kayexalate. Potassium is down to 5.4. Originally was set to go to the unit, but with improvement in potassium will go to the floor. CTA had been ordered but with clear reason for arrhythmia, the fact that the patient is anticoagulated, and negative D-dimer, was canceled due to significant creatinine. Can be reordered by hospitalist team if they wish. Spoke with hospitalist. They will admit. He has seen the patient in the ER Lab Data 08/17/25 16:09 08/17/25 17:45 Labs/Radiology: Radiology Impressions Chest X-Ray 08/17/25 15:55 IMPRESSION: No acute cardiopulmonary findings. Laboratory Results WBC 6.44 10^3/uL (3.29-11.43) 08/17/25 16:09 RBC 4.57 10^6/uL (3.85-5.65) 08/17/25 16:09 Hgb 13.40 g/dL (11.27-16.99) 08/17/25 16:09 Hct 40.6 % (37-53) 08/17/25 16:09 MCV 88.8 fl (82-101) 08/17/25 16:09 MCH 29.3 pg (27-33) 08/17/25 16:09 MCHC 33.0 g/dL (30-55) 08/17/25 16:09 RDW 14.3 % (12.1-15.1) 08/17/25 16:09 Plt Count 163 10^3/cmm (157-399) 08/17/25 16:09 MPV 12.3 fL (7.4-10.4) H 08/17/25 16:09 Neut % (Auto) 76.5 % 08/17/25 16:09 Lymph % (Auto) 13.2 % 08/17/25 16:09 Carolina % (Auto) 7.6 % 08/17/25 16:09 Eos % (Auto) 1.4 % 08/17/25 16:09 Baso % (Auto) 0.5 % 08/17/25 16:09 Neut # (Auto) 4.93 10^3/uL (1.8-7.7) 08/17/25 16:09 Lymph # (Auto) 0.9 10^3/uL (0.8-4.8) 08/17/25 16:09 Carolina # (Auto) 0.5 10^3/uL (0.2-0.9) 08/17/25 16:09 Eos # (Auto) 0.1 10^3/uL (0.0-0.8) 08/17/25 16:09 Baso # (Auto) 0.0 10^3/uL (0.0-0.1) 08/17/25 16:09 Nucleated RBC % (auto) 0 % 08/17/25 16:09 Nucleated RBCs # 0.0 /100WBC 08/17/25 16:09 PT 23.50 SECONDS (12.1-14.9) H 08/17/25 16:09 INR 1.96 (0.8-1.2) H 08/17/25 16:09 APTT 47.5 SECONDS (23.9-36.7) H 08/17/25 16:09 D-Dimer 0.29 ug/mLFEU (0-0.59) 08/17/25 16:09 Specimen Type Arterial 08/17/25 16:27 Sample Site Radial, right 08/17/25 16:27 ABG pH 7.44 (7.35-7.45) 08/17/25 16:27 ABG pCO2 22.1 mmHg (35-45) L 08/17/25 16:27 ABG pO2 98.2 mmHg (80.0-100.0) 08/17/25 16:27 ABG PO2/FiO2 Ratio 467 08/17/25 16:27 ABG HCO3 15.1 mmol/L (22-26) L 08/17/25 16:27 ABG Base Excess -6.8 mmol/L (-2.0-2.0) L 08/17/25 16:27 Antonio Test Pos 08/17/25 16:27 Hematocrit 42.6 % (42-52) 08/17/25 16:27 Hgb O2 Saturation 97.0 % (95-100) 08/17/25 16:27 Carboxyhemoglobin 1.0 %THgb (0.4-20.1) 08/17/25 16:27 Methemoglobin 0.8 % (0.4-1.5) 08/17/25 16:27 Total Hemoglobin 13.9 g/dL (14-18) L 08/17/25 16:27 O2 Delivery Device Room air 08/17/25 16:27 FiO2 21.0 % 08/17/25 16:27 Design Verification Engineer ID Monro 08/17/25 16:27 Sodium 133 mmol/L (136-145) L 08/17/25 16:09 Potassium 5.4 mmol/L (3.5-5.1) H 08/17/25 17:45 Chloride 103 mmol/L (98-107) 08/17/25 16:09 Carbon Dioxide 14 mmol/L (22-29) L 08/17/25 16:09 Anion Gap 22.1 (5-19) H 08/17/25 16:09 BUN 53 mg/dL (8-23) H 08/17/25 16:09 Creatinine 2.7 mg/dL (0.7-1.2) H 08/17/25 16:09 GFR Calculation Not Reportable 08/17/25 16:09 Glucose 103 mg/dL (65-115) 08/17/25 16:09 POC Glucose 130 mg/dL (70-110) H 08/17/25 19:30 Calculated Osmolality 291 mOsm/kg (285-295) 08/17/25 16:09 Calcium 9.6 mg/dL (8.5-10.5) 08/17/25 16:09 Total Bilirubin 0.5 mg/dL (0.15-1.2) 08/17/25 16:09 AST 15 U/L (0-40) 08/17/25 16:09 ALT 8 U/L (0-41) 08/17/25 16:09 Alkaline Phosphatase 80 U/L (40-130) 08/17/25 16:09 Creatine Kinase 65 U/L (39-308) 08/17/25 17:45 Troponin T Baseline 30 ng/L (0-15) H 08/17/25 16:09 Troponin T 120 Minute 31.19 ng/L (0-15) H 08/17/25 17:45 Delta Troponin T 1.19 ABS# (0-10) 08/17/25 17:45 NT-Pro-B Natriuret Pep 131 pg/mL (0-125) H 08/17/25 16:09 Total Protein 6.4 g/dL (6.6-8.7) L 08/17/25 16:09 Albumin 4.2 g/dL (3.5-5.2) 08/17/25 16:09 Globulin 2.2 g/dL (1.3-4.6) 08/17/25 16:09 TSH 5.34 uIU/mL (0.27-4.20) H 08/17/25 16:09 Free T4 1.07 ng/dL (0.82-1.77) 08/17/25 16:09 Influenza A (PCR) Negative (Negative) 08/17/25 16:30 Influenza Type B (PCR) Negative (Negative) 08/17/25 16:30 RSV (PCR) Negative (Negative) 08/17/25 16:30 SARS-CoV-2 (PCR) Negative (Negative) 08/17/25 16:30 Discharge Plan Discharge Patient Disposition: Admitted As Inpatient Clinical Impression: SYLVIA (acute kidney injury), Hyperkalemia, Atrial fibrillation with rapid ventricular response Condition: Stable Coding Level of Care Code ED Marketing Traffic Coordinator for Evelyn Zamora
[2025-08-17 16:54] LABS: Troponin(5th) Baseline 30 ng/L (0-15)
[2025-08-17 17:05] LABS: Free T4 Free Thyroxine 1.07 ng/dL (0.82-1.77); NT Pro B Type Natriuretic Pept 131 pg/mL (0-125); Thyroid Stimulating Hormone 5.34 uIU/mL (0.27-4.20)
[2025-08-17 17:33] LABS: Respiratory Syncytial Virus Ce NEGATIVE (Negative); SARS-CoV-2 PCR NEGATIVE (Negative)
[2025-08-17 17:42] LABS: Hematocrit 40.6 % (37-53); Hemoglobin 13.40 g/dL (11.27-16.99); Mean Corpuscular HGB Conc 33.0 g/dL (30-55); Mean Corpuscular Hemoglobin 29.3 pg (27-33); Mean Corpuscular Volume 88.8 fl (82-101); Nucleated Red Blood Cells % 0 %; Platelet Count 163 10^3/cmm (157-399); Red Blood Count 4.57 10^6/uL (3.85-5.65); White Blood Count 6.44 10^3/uL (3.29-11.43)
[2025-08-17 17:54] LABS: Alanine Aminotransferase 8 U/L (0-41); Albumin Level 4.2 g/dL (3.5-5.2); Alkaline Phosphatase 80 U/L (40-130); Anion Gap 22.1 (5-19); Aspartate Amino Transferase 15 U/L (0-40); Blood Urea Nitrogen 53 mg/dL (8-23); Calcium 9.6 mg/dL (8.5-10.5); Carbon Dioxide 14 mmol/L (22-29); Chloride 103 mmol/L (98-107); Creatinine Clr Calc Pharmacy 32.4701; Globulin 2.2 g/dL (1.3-4.6); Glucose 103 mg/dL (65-115); Osmolality Calculated 291 mOsm/kg (285-295); Potassium 6.1 mmol/L (3.5-5.1); Sodium 133 mmol/L (136-145); Total Protein 6.4 g/dL (6.6-8.7)
--- NOTE | 2025-08-17 18:08 | ECG_ITS ---
[employer] Test Date: 2025-08-17 Pat Name: Edwin Anderson Department: Room: Gender: Male Social Service Liaison: : 1950 Requested By: Marcos Mahmood Order Number: [id number] Lakeisha MD: Hiram Apple M.D. Measurements Intervals [place] Rate: 111 P: 0 NM: 0 QRS: -72 QRSD: 137 T: 82 QT: 344 QTc: 469 Interpretive Statements ATRIAL FLUTTER/TACHYCARDIA WITH RAPID VENTRICULAR RESPONSE LEFT AXIS DEVIATION [QRS AXIS < -30] INTRAVENTRICULAR CONDUCTION DELAY [130+ ms QRS DURATION] SEPTAL MYOCARDIAL INFARCTION , OF INDETERMINATE AGE [40+ ms Q WAVE IN V1/V2] Compared to ECG 08/17/2025 15:50:55 Myocardial infarct finding now present Sinus tachycardia no longer present Electronically Signed On 08-18-2025 13:05:20 RODEO CLOWN by Hiram Apple M.D. [id number]
[2025-08-17 18:14] LABS: Troponin 5 2HR 31.19 ng/L (0-15); Troponin 5 2HR Delta 1.19 ABS# (0-10)
[2025-08-17] MEDS: calcium gluconate 0.1 gm/mL 10% SDV 10mL 1 GM IVP (18:17)
[2025-08-17] MEDS: insulin regular-human 100 units/1 mL 5 UNIT IVP (18:40)
[2025-08-17] MEDS: metoprolol tartrate 1 mg/1 mL SDV 5 mL 5 MG IVP (19:25)
--- NOTE | 2025-08-17 20:22 | CTR_ITS ---
PROCEDURE INFORMATION: Exam: CT Chest Without Contrast; Diagnostic Exam date and time: 08/17/2025 8:56 PM Age: 74 years old Clinical indication: Dyspnea and shortness of breath; Prior surgery; Surgery date: 6+ months; Surgery type: Cardiac node ablation. Gb; SOB with dyspnea. History of chf, afib, and aortic stenosis. TECHNIQUE: Imaging protocol: Diagnostic computed tomography of the chest without contrast. Radiation optimization: All CT scans at this facility use at least one of these dose optimization techniques: automated exposure control; mA and/or kV adjustment per patient size (includes targeted exams where dose is matched to clinical indication); or iterative reconstruction. COMPARISON: CR (CHEST, ) 08/17/2025 4:57 PM RADIATION DOSE METRICS: Total DLP (mGy-cm): 960.34 FINDINGS: Lungs: No consolidation. No masses. Pleural spaces: No pneumothorax. No pleural effusion. Heart: No cardiomegaly. No pericardial effusion. Coronary arteries: There are coronary artery calcifications. Esophagus: There is distal esophageal thickening. Findings may represent esophagitis. Correlation with endoscopy may be helpful. Lymph nodes: Unremarkable. No enlarged lymph nodes. Vasculature: Unremarkable. No aortic aneurysm. Kidneys: Indeterminate hyperdense cortical lesions in the right kidney measuring up to 3 cm. Nonemergent evaluation with ultrasound is recommended for further characterization. Bones/joints: Chronic rib fractures. Soft tissues: Unremarkable. CT/CT chest wo con [id number] IMPRESSION: 1. There is distal esophageal thickening. Findings may represent esophagitis. Correlation with endoscopy may be helpful. 2. Indeterminate hyperdense cortical lesions in the right kidney measuring up to 3 cm. Nonemergent evaluation with ultrasound is recommended for further characterization. COMMENTS: Consistent with the [employer]'s Incidental Findings Committee white paper (J Am Aaliyah Radiol 2018): Any incidental renal lesion less than 1 cm or classified as too small to characterize, or any incidental cystic renal lesion characterized as simple-appearing, is likely benign. No follow-up imaging is recommended for these lesions per consensus recommendations based on imaging criteria.
--- NOTE | 2025-08-17 20:23 | PM.HP ---
Providers/Chief Complaint Admitting Physician: Sincere Garcia MD Primary Care Provider: Nina Baldwin NP Chief Complaint: SOB / Weakness History of Present Illness as per the retrospect notes and the patient: Edwin Anderson is a 74 year old male with PMH of prostate CA s/p radiotherapy, hypertension, Monito embolism on anticoagulation, diabetes mellitus and also on Ozempic since the year came with shortness of breath and feeling of weakness from the last 1 day, no recent fall or any trauma.. The patient did not report any fever chills, burning chest pain or chest pressure. Patient did not report any abdominal pain. However he has been having diarrhea since the time he had this shortness of breath and weakness. The patient shortness of breath started when he went to a store to buy dog food and was getting 15 pounds bag to his home. Later on when he was at home he was feeling short of breath and called his ex- who asked him to call EMS. However meanwhile his son arrived who was on the way and took him to the hospital. There is no recent leg swellings, or any change in his urinary habits. No recent joint swellings, skin rash the patient did not take alcohol or any other drug abuse. No history of previous COPD diagnosis or any asthma. Review of Systems General: Reports: 10 or more systems reviewed and unremarkable except in HPI and below Medications/Allergies Home Medications ?Medication ?Instructions ?Recorded ?Confirmed ?Last Taken ?Type allopurinol 300 mg tablet 300 mg PO DAILY 06/01/22 02/13/25 08/06/22 History donepezil 10 mg tablet 10 mg PO BEDTIME 06/01/22 02/13/25 08/06/22 History fluoxetine 20 mg capsule 20 mg PO DAILY 06/01/22 02/13/25 08/06/22 History gemfibrozil 600 mg tablet 600 mg PO BID 06/01/22 02/13/25 08/06/22 History multivitamin 1 tab PO DAILY ##0 06/01/22 02/13/25 08/06/22 History simvastatin 40 mg tablet 40 mg PO BEDTIME 06/01/22 02/13/25 08/06/22 History metoprolol tartrate 50 mg tablet 75 mg (1.5 x 50 mg) PO 08/07/22 02/13/25 08/06/22 Rx BID@0900,2100 #120 tabs rivaroxaban 20 mg tablet (Xarelto) 20 mg PO BEDTIME #90 tabs 09/14/22 02/13/25 Unknown Rx semaglutide 0.25 mg or 0.5 mg (2 mg SUBCUT 01/31/24 02/13/25 Unknown History mg/3 mL) subcutaneous pen injector (Ozempic) hydralazine 10 mg tablet See Rx Instructions .Route 01/11/25 02/13/25 Unknown Rx .COMPLEX #90 tabs amlodipine 10 mg tablet 10 mg PO DAILY #90 tabs 01/24/25 02/13/25 Unknown Rx potassium chloride 20 mEq See Rx Instructions .Route 02/02/25 02/13/25 Unknown Rx tablet,extended release(part/cryst) .COMPLEX #270 tabs losartan 100 mg tablet See Rx Instructions .Route 07/30/25 Unknown Rx .COMPLEX #90 tabs spironolactone 25 mg tablet See Rx Instructions .Route 07/30/25 Unknown Rx .COMPLEX #90 tabs Allergies Allergy/AdvReac Type Severity Reaction Status Date / Time No Known Allergies Allergy Verified 02/13/25 16:32 PFSH Acute PFSH: Medical History (Updated 08/17/25 @ 22:29 by Sincere Garcia MD) Hyperkalemia Anticoagulation adequate with anticoagulant therapy Atherosclerosis of coronary artery JOSIE (obstructive sleep apnea) Aortic stenosis Diabetes mellitus type 2 in obese Hypertension Depression Hyperlipidemia Cognitive decline Gout Colon cancer Pulmonary embolism Surgical History S/P ablation of atrial fibrillation History of lung surgery Bronchogenic cyst removal History of cholecystectomy History of tonsillectomy Family History Other Cancer Social History Smoking and tobacco/nicotine status: former use of tobacco/nicotine Alcohol intake: never Vitals/I&O/Wt Last Vital Signs Temp 97.5 F L 08/17/25 15:42 Pulse 101 H 08/17/25 19:08 Resp 16 08/17/25 19:08 BP 141/73 08/17/25 19:08 Pulse Ox 100 08/17/25 19:08 O2 Del Method Room Air 08/17/25 18:00 08/17/25 08/17/25 08/17/25 06:59 14:59 22:59 Intake Total 250 / 250 Balance 250 / 250 Weight last 48 hrs Weight 115.666 kg Physical Exam Narrative: General: Morbidly obese gentleman, alert and oriented, lying comfortably without any distress HEENT: Normocephalic, atraumatic, grossly unremarkable exam Cardio: normal rate rhythm, normal S1-S2 without any murmurs. Respiratory: normal vascular breathing on auscultation without any wheezes, limited exam due to morbid obesity GI: Abdomen soft, nontender, nondistended, normoactive bowel sounds present all 4 quadrants, cannot appreciate organomegaly due to morbid obesity Neuro: Grossly intact neurological system Behavior: Appropriate and cooperative Extremities: Adequate palpable pulses, mild trace edema Data 08/17/25 16:09 08/17/25 17:45 A&P Assessment and plan 1. Hyperkalemia: Patient received treatment for hyperkalemia with calcium gluconate, insulin with dextrose water Repeat potassium 5.4 Patient given [id number] nebulization BMP to be repeated every 6 following potassium and later daily Monitor renal function Follow CPK Avoid any medications causing hyperkalemia, patient home medication reveals potassium supplements, spironolactone 25 mg and losartan 100 mg daily, to hold it at the moment and to reconcile at the time of discharge Wells's catheter for adequate intake and output monitoring Adequate hydration with normal saline Telemetry monitoring 2. SYLVIA (acute kidney injury): Patient found to have SYLVIA could be SYLVIA on CKD however patient was not aware Ultrasound kidneys to look for renal parenchyma and cortex Urine for microalbumin PTH and phosphorus for look for chronic kidney disease suggestive parameters Monitor renal parameters with adequate intake and output monitoring Monitoring and correction of electrolytes accordingly Monitor hemodynamics Avoid nephrotoxic drugs 3. Pneumonia: Patient had features of shortness of breath, he is also diabetic No leukocytosis however patient could have atypical pneumonia Chest x-ray was not suggestive however I was unable to open the chest x-ray film due to technical issue CT chest without contrast to follow any infiltrates For the risk and benefits to start the patient on azithromycin and ceftriaxone Patient is not requiring oxygen therefore no need for steroids at the moment Respiratory viral panel Oxygen therapy as needed if patient desaturates Follow-up blood cultures,sputum cultures and urine cultures 4. Hypertension: Patient on losartan 100 mg, hydralazine 10 mg 3 times daily, amlodipine 10 mg daily, Medication reconciled and started on amlodipine 10 mg and hydralazine 10 mg for the meantime Monitor blood pressure Avoid losartan and spironolactone considering patient had hyperkalemia. The hyperkalemia is likely related to potassium supplements however to avoid considering patient also had SYLVIA versus SYLVIA on CKD versus CKD?? Continue monitor blood pressure titration and tailoring of antihypertensive accordingly 5. Atrial fibrillation with rapid ventricular response: Patient on metoprolol 75 mg twice daily at home dose to reconcile Patient on rivaroxaban 20 mg daily and to resume after reconciliation 6. Hyperlipidemia: Patient on gemfibrozil 600 mg twice daily and simvastatin 40 mg bedtime and to continue after reconciliation 7. CHF NYHA class III (symptoms with mildly strenuous activities): Currently stable continue to monitor 8. JOSIE (obstructive sleep apnea): BiPAP at night 9. Diabetes mellitus type 2 in obese: Insulin sliding scale 10. Pulmonary embolism: Patient on rivaroxaban 20 mg twice daily on review of home medication and to resume after reconciliation PDMP PDMP Reviewed: Not Reviewed Attestations Medical Necessity Statement*: The patient will stay more than 2 midnights for the management of his hyperkalemia and possible pneumonia? Time Spent in Patient Care: 16 - 35 minutes (>than 50% of time spent in counselling and/or direct pt care on unit). Other Attestations: Patient condition has been discussed at length with the patient/family, I have independently reviewed the chart labs imaging/diagnostics/EKG. the goals of care and code status with the patient/family/NOK/legal sales representative leather goods, and documented accordingly. The management has been done according to the current clinical condition with respect to patient goals of care and based on recommendations/guidelines. The patient/family has been informed about the current condition and further plan of care. Agreed with the plan of care and understood without any language barrier. Every effort was made to ensure accuracy of tobacco buyer. Any obvious errors or omissions should be clarified with the author of the document. Coding Level of Care Code 99718 Diagnoses Hyperkalemia E87.5 SYLVIA (acute kidney injury) N17.9 Pneumonia J18.9 Hypertension I10 Atrial fibrillation with rapid ventricular response I48.91 Hyperlipidemia E78.5 CHF NYHA class III (symptoms with mildly strenuous activities) I50.9 JOSIE (obstructive sleep apnea) G47.33 Diabetes mellitus type 2 in obese E11.9; E66.9 Pulmonary embolism I26.99
[2025-08-17 20:44] LABS: Potassium 5.4 mmol/L (3.5-5.1)
[2025-08-17] MEDS: heparin 5,000 unit/mL INJ 1 mL 5000 UNIT SUBCUT (20:51)
[2025-08-17] MEDS: cefTRIAXone 1,000 mg SDV 1000 MG IVP (20:52)
--- NOTE | 2025-08-17 21:55 | ECG_ITS ---
[email or web address] Date: 2025-08-17 Pat Name: Ewdin Anderson Department: Room: Gender: Male Airport Attendant: : 1950 Requested By: Marcos Mahmood Order Number: [id number] Lakeisha MD: Hiram Apple M.D. Measurements Intervals [place] Rate: 101 P: 55 NE: 225 QRS: -65 QRSD: 138 T: 93 QT: 379 QTc: 492 Interpretive Statements SINUS TACHYCARDIA WITH FIRST DEGREE AV BLOCK WITH OCCASIONAL VENTRICULAR PREMATURE COMPLEXES LEFT AXIS DEVIATION [QRS AXIS < -30] INTRAVENTRICULAR CONDUCTION DELAY [130+ ms QRS DURATION] SEPTAL MYOCARDIAL INFARCTION , OF INDETERMINATE AGE [40+ ms Q WAVE IN V1/V2] Compared to ECG 08/17/2025 18:08:15 Ventricular premature complex(es) now present First degree AV block now present Atrial flutter no longer present Myocardial infarct finding still present Electronically Signed On 08-18-2025 13:04:40 INTELLECTUAL PROPERTY LAWYER by Hiram Apple M.D. [email or web address]
[2025-08-17 22:44] LABS: Troponin 5 6HR 28.78 ng/L (0-15)
[2025-08-17 22:45] LABS: Troponin 5 6HR Delta -1.22 ng/L (0-12)
[2025-08-17 22:52] LABS: Anion Gap 21.7 (5-19); Blood Urea Nitrogen 48 mg/dL (8-23); Calcium 9.3 mg/dL (8.5-10.5); Carbon Dioxide 16 mmol/L (22-29); Chloride 103 mmol/L (98-107); Creatinine Clr Calc Pharmacy 35.0678; Glucose 156 mg/dL (65-115); Osmolality Calculated 298 mOsm/kg (285-295); Potassium 4.7 mmol/L (3.5-5.1); Sodium 136 mmol/L (136-145)
[2025-08-17 23:30] LABS: Creatinine Urine, Random 66 mg/dL (39-259); Microalbum Creatinine Ratio Ur 15 mg/dL (0-20)
[2025-08-18] VITALS (8 sets, daily range): BP systolic 115–147; BP diastolic 58–80; PULSE 74–91; RESP 17–19; TEMP 36.4–36.7; O2SAT 96–98
[2025-08-18] MEDS: ATORVASTATIN 20 MG TABLET PO ×2 (00:15→21:55)
[2025-08-18 00:44] LABS: Calcium 9.5 mg/dL (8.5-10.5)
[2025-08-18 01:11] LABS: Coronavirus 229E,HKU1,NL63,OC4 Not Detected (NOT DETECT); Parainfluenza Virus Type 1 Not Detected (NOT DETECT); Parainfluenza Virus Type 2 Not Detected (NOT DETECT); Parainfluenza Virus Type 3 Not Detected (NOT DETECT); Parainfluenza Virus Type 4 Not Detected (NOT DETECT); SARS-COV-2 Not Detected (NOT DETECT)
[2025-08-18 04:53] LABS: Hematocrit 38.0 % (37-53); Hemoglobin 12.50 g/dL (11.27-16.99); Mean Corpuscular HGB Conc 32.9 g/dL (30-55); Mean Corpuscular Hemoglobin 29.8 pg (27-33); Mean Corpuscular Volume 90.7 fl (82-101); Nucleated Red Blood Cells % 0 %; Platelet Count 136 10^3/cmm (157-399); Red Blood Count 4.19 10^6/uL (3.85-5.65); White Blood Count 5.18 10^3/uL (3.29-11.43)
[2025-08-18 05:19] LABS: Alanine Aminotransferase 7 U/L (0-41); Albumin Level 3.8 g/dL (3.5-5.2); Alkaline Phosphatase 68 U/L (40-130); Anion Gap 18.6 (5-19); Aspartate Amino Transferase 13 U/L (0-40); Blood Urea Nitrogen 46 mg/dL (8-23); Calcium 8.9 mg/dL (8.5-10.5); Carbon Dioxide 18 mmol/L (22-29); Chloride 105 mmol/L (98-107); Creatinine Clr Calc Pharmacy 36.3791; Globulin 2.7 g/dL (1.3-4.6); Glucose 104 mg/dL (65-115); Osmolality Calculated 296 mOsm/kg (285-295); Potassium 4.6 mmol/L (3.5-5.1); Sodium 137 mmol/L (136-145); Total Protein 6.5 g/dL (6.6-8.7)
--- NOTE | 2025-08-18 10:09 | USCV_ITS ---
Edwin Anderson Age: 74 Gender: M : 1950 Exam Date: 08/18/2025 13:25 Ordering Phys: Senthil Devries MD Technologist: Vlad Seo Exam Location: [facility] [place] Indication: sob BP: 118 / 58 HR: 77 Rhythm: Sinus Technical Quality: Adequate MEASUREMENTS (Male / Female) Normal Values 2D ECHO LVOT Diameter 2.1 cm LV Ejection Fraction MOD 4C 77.7 % LV Ejection Fraction MOD 2C 73.4 % LV Ejection Fraction 2C AL 75.1 % LA Diameter 4.0 cm RA Systolic Volume 4C AL 40.8 ml RA Systolic Volume 4C MOD 40.1 ml LA Sys Volume AL 60.7 cm cubed LA Sys Volume Index AL 24.8 cm cubed/m squared Aorta at Sinotubular Diameter 3.9 cm M-MODE LA Ao Ratio MM 1.0 AV Cusp Separation MM 1.3 cm DOPPLER AV Peak Velocity 302.3 cm/s LVOT Peak Velocity 95.0 cm/s AV Area Cont Eq vti 1.0 cm squared AV Area Cont Eq pk 1.0 cm squared MV Peak Velocity 166.0 cm/s MV Area PHT 7.7 cm squared Mitral E to A Ratio 0.9 TV Peak Velocity 262.3 cm/s TR Peak Velocity 266.0 cm/s TR Peak Gradient 28.3 mmHg TR Mean Velocity 224.0 cm/s TR Mean Gradient 20.6 mmHg TR Velocity Time Integral 66.8 cm PV Peak Velocity 87.0 cm/s RV Ejection Time 0.3 s FINDINGS Left Ventricle Normal left ventricular size and systolic function, EF 77%. Moderate concentric left ventricular hypertrophy.Grade III/IV diastolic dysfunction (restrictive filling pattern), severely elevated filling pressures. Right Ventricle Normal right ventricular size and systolic function. Right Atrium Normal right atrial size. Left Atrium Mildly increased left atrial size. IA Septum Normal interatrial septum. Mitral Valve Mild mitral annular calcification. Aortic Valve Moderate aortic valve calcification. Moderate aortic valve stenosis, mean gradient 24.9 mmHg, SAMUEL 1.04 cm squared. Peak velocity of 3.04 m/s Trace aortic valve regurgitation. Tricuspid Valve Trace tricuspid valve regurgitation. Pulmonic Valve Pulmonic valve not well visualized. Pericardium No pericardial effusion. Aorta Normal aortic annulus size. IVC Inferior vena cava not visualized. CONCLUSIONS Normal left ventricular size and systolic function, EF 77%. Moderate concentric left ventricular hypertrophy.Grade III/IV diastolic dysfunction (restrictive filling pattern), severely elevated filling pressures. Moderate aortic valve stenosis, mean gradient 24.9 mmHg, SAMUEL 1.04 cm squared. Peak velocity of 3.04 m/s. Moderate aortic valve calcification.Trace aortic valve regurgitation. Mild mitral annular calcification. Trace tricuspid valve regurgitation. Compared to the study from 03/30/2025, there may not be a significant change Dr Hiram Apple MD FAC (Electronically Signed) Final Date: 18 August 2025 15:13 S
--- NOTE | 2025-08-18 10:09 | USR_ITS ---
PROCEDURE INFORMATION: Exam: US Duplex Lower Extremity Veins, Bilateral Exam date and time: 08/18/2025 1:07 PM Age: 74 years old Clinical indication: Swelling (edema) of limb; Lower extremity, bilateral TECHNIQUE: Imaging protocol: Real-time duplex ultrasound of the bilateral extremities with 2-D baez scale, color Doppler flow and spectral waveform analysis including responses to compression and other maneuvers (when performed) with image documentation. Complete exam focused on the lower extremity veins. COMPARISON: US renal BI* [id number] 08/18/2025 7:10 AM FINDINGS: Right deep veins: Unremarkable. The common femoral, femoral, proximal profunda femoral, popliteal, posterior tibial and peroneal veins are patent without thrombus. Normal Doppler waveforms. Normal compressibility and/or augmentation response. Left deep veins: Unremarkable. The common femoral, femoral, proximal profunda femoral, popliteal, posterior tibial and peroneal veins are patent without thrombus. Normal Doppler waveforms. Normal compressibility and/or augmentation response. Superficial veins: Greater saphenous veins at the saphenofemoral junctions are patent bilaterally without thrombus. Soft tissues: Unremarkable. US/[place] [id number] IMPRESSION: No sonographic evidence of deep venous thrombosis.
[2025-08-18 10:43] LABS: Procalcitonin 0.06 ng/mL (0-0.5)
--- NOTE | 2025-08-18 10:43 | PC.CHAP ---
Pastoral Care Encounter/Spiritual Assessment Type of Contact [] Declined account auditor visit [] Patient/Family/Request visit [] Outpatient visit [] Follow-up visit [] Physician referral [] Code/Alert [x] Routine visit [] Staff referral [] Actively dying [x] Patient sleeping [] Family support [] [] Out of room [] Palliative care [] [] Receiving care in room [] Pre-surgical visit [] Trauma [] Long length of stay [] ICU visit [] Other: Relational/Emotional Strength [] Patient feels connected with others/family/visitors/staff [] Distress [] Loneliness/isolation [] Abandonment Spirituality of Patient [] Person of Maru [] Attends Church of their Maru [] Believes in Prayer [] Reads Bible or Faith materials [] There are Spiritual issues to be addressed Ledger Poster Interventions [] Prayer [] Active listening [] Non-anxious presence [] Spiritual/emotional support [] Crisis/trauma care [] Spiritual counseling [] Bereavement support [] Provided bereavement packet [] Provided Bible/devotional materials [] Provided toy/stuffed animal, coloring book to patient or family member [] Provided Communion [] Anointing/[place] [] Salvation [] Completed spiritual assessment [] Other: Impact on Illness or Injury [] Angry [] Fearful [] Anxious [] Often cries [] Exhaustion [] Unable to work [] Unable to attend judaism [] Unable to walk/stand [] Unable to read [] Unable to drive [] Unable to eat/drink [] Unable to sleep [] Unable to be with family [] Patient intubated [] Other: Summary Time spent with patient
--- NOTE | 2025-08-18 14:37 | P.PN_ITS ---
Subjective 2 Subjective: - Patient was seen this morning - He is alert oriented x 3, following al l commands - He tells me he feels a lot better - We discussed the events of yesterday - He reports acute onset shortness of br eath, when he was carrying a 50 pound bag of dog food - His heart rate at that time was in the 120s on his pulse ox - No chest pain - No persistent shortness of breath no s hortness of breath before this, no hemoptysis - No fevers, no cough - He did have some sort of heart test and has been feeling well since then he tells me he - Did report an episode of diarrhea - Discussed so far his CT of the chest d oes not have any acute findings, respiratory viral panel within normal limits, no delta troponin, discussed his improving creatinine, improving potassium - Perhaps etiology his atrial fibrillati on, on his last echo he did have moderate aortic valve stenosis, certainly this could be an etiology - Discussed repeating echo, continue mon itoring manage inpatient, IV fluids Vitals/I&O/Wt Last Vital Signs Temp 97.7 F 08/18/25 11:09 Pulse 77 08/18/25 11:09 Resp 19 H 08/18/25 11:09 BP 118/58 08/18/25 11:09 Pulse Ox 97 08/18/25 11:09 O2 Del Method Room Air 08/18/25 11:09 08/17/25 08/18/25 08/18/25 22:59 06:59 14:59 Intake Total 1250 / 1250 1730 / 2980 1817.5 / 1817.5 Output Total 600 / 600 400 / 400 Balance 1250 / 1250 1130 / 2380 1417.5 / 1417.5 Weight last 48 hrs Weight 114.305 kg Weight 114.714 kg Weight 115.666 kg Physical Exam 2 Const: COMMON NORMALS: no acute distress and patient oriented x3 Eye: COMMON NORMALS: Equal, round and reactive pupils present PUPIL: Yes Equal, round and reactive pupils present Resp: COMMON NORMALS: normal respiratory effort, No retractions, No use of accessory muscles and clear to auscultation bilaterally AUSCULTATION: clear to auscultation bilaterally Cardio: COMMON NORMALS: regular rate, regular rhythm, S1 normal heart sound present and S2 normal heart sound present RATE: regular rate RHYTHM: r egular rhythm HEART SOUNDS: S1 normal heart sound present and S2 normal heart sound present GI: COMMON NORMALS: Normal to inspection, nondistended, normoactive bowel sounds present and non-tender Extremity: COMMON NORMALS: no calf tenderness and no pedal edema Neuro: COMMON NORMALS: patient oriented x3, CN's II-XII intact bilaterally and moves all extremities Psych: COMMON NORMALS: mental status grossly normal Data 08/18/25 04:14 08/18/25 04:14 A&P Assessment and plan 1. Hyperkalemia: 2. SYLVIA (acute kidney injury): 3. Pneumonia: 4. Hypertension: 5. Atrial fibrillation with rapid ventricular response: Patient on metoprolol 75 mg twice daily at home dose to reconcile Patient on rivaroxaban 20 mg daily and to resume after reconciliation 6. Hyperlipidemia: Patient on gemfibrozil 600 mg twice daily and simvastatin 40 mg bedtime and to continue after reconciliation 7. CHF NYHA class III (symptoms with mildly strenuous activities): Currently stable continue to monitor 8. JOSIE (obstructive sleep apnea): BiPAP at night 9. Diabetes mellitus type 2 in obese: Insulin sliding scale 10. Pulmonary embolism: Patient on rivaroxaban 20 mg twice daily on review of home medication and to resume after reconciliation Plan: Shortness of breath - Perhaps related to atrial fibrillation with rapid reticular response associated with his exertion - Continue telemetry monitoring - Perhaps related to his aortic stenosis, last echo in June showed moderate aortic valve stenosis CT chest - CT/CT chest wo con [id number] IMPRESSION: 1. There is distal esophageal thickening. Findings may represent esophagitis. Correlation with endoscopy may be helpful. 2. Indeterminate hyperdense cortical lesions in the right kidney measuring up to 3 cm. Nonemergent evaluation with ultrasound is recommended for further characterization. - Plan - Monitor - Cardiac echo - Telemetry monitoring Acute kidney injury - Potentially related to dehydration - Could be related to aortic valve stenosis - Renal ultrasound US/US renal BI w/PV bladder [id number] IMPRESSION: 1. No hydronephrosis. 2. Moderate postvoid residual in the urinary bladder of 170 mL. 3. Right renal cysts measuring up to 4.3 cm. 4. Borderline prostatomegaly. Correlate with PSA levels. History of pulmonary embolism, continue Xarelto Type 2 diabetes mellitus, low-dose sliding scale Renal cyst, will need to follow-up with urology Hyperkalemia, resolved JOSIE, BiPAP Full code Xarelto for DVT PDMP PDMP Reviewed: Not Reviewed Attestations 2 Medical Necessity Statement*: Patient requires hospitalization for shortness of breath, Diagnoses Hyperkalemia E87.5 SYLVIA (acute kidney injury) N17.9 Pneumonia J18.9 Hypertension I10 Atrial fibrillation with rapid ventricular response I48.91 Hyperlipidemia E78.5 CHF NYHA class III (symptoms with mildly strenuous activities) I50.9 JOSIE (obstructive sleep apnea) G47.33 Diabetes mellitus type 2 in obese E11.9; E66.9 Pulmonary embolism I26.99
[2025-08-18 15:42] LABS: Lactate (Lactic Acid level) 1.2 mmol/L (0.5-2.2)
[2025-08-18 15:48] LABS: Alanine Aminotransferase 7 U/L (0-41); Albumin Level 3.6 g/dL (3.5-5.2); Alkaline Phosphatase 65 U/L (40-130); Anion Gap 15.8 (5-19); Aspartate Amino Transferase 14 U/L (0-40); Blood Urea Nitrogen 38 mg/dL (8-23); Calcium 8.5 mg/dL (8.5-10.5); Carbon Dioxide 17 mmol/L (22-29); Chloride 108 mmol/L (98-107); Creatinine Clr Calc Pharmacy 43.5776; Globulin 2.3 g/dL (1.3-4.6); Glucose 120 mg/dL (65-115); Osmolality Calculated 292 mOsm/kg (285-295); Potassium 4.8 mmol/L (3.5-5.1); Sodium 136 mmol/L (136-145); Total Protein 5.9 g/dL (6.6-8.7)
--- NOTE | 2025-08-18 22:25 | USR_ITS ---
PROCEDURE INFORMATION: Exam: US Retroperitoneal, Complete, Kidneys and Bladder Exam date and time: 08/18/2025 7:10 AM Age: 74 years old Clinical indication: Screening exam; Other: To look for features of chronic kidney disease TECHNIQUE: Imaging protocol: Real-time ultrasound of the retroperitoneum with image documentation. Complete exam focused on the bilateral kidneys and urinary bladder. COMPARISON: CT abdomen w con* [id number] 09/06/2019 1:36 PM FINDINGS: Right kidney: Right kidney measures 9 cm in length. No stones. No hydronephrosis. Several cysts are noted, the largest of which measures 4.3 x 3.8 x 4.2 cm. Left kidney: Left kidney measures 9.9 cm. No stones. No hydronephrosis. Urinary bladder: Prevoid bladder volume 279 mL. Moderate postvoid residual of 170 mL. Prostate: Prominent prostate measuring 4.5 x 3.0 x 3.4 cm (35.7 mL). Aorta: Mid aorta measures 1.8 cm in diameter. US/US renal BI w/PV bladder [id number] IMPRESSION: 1. No hydronephrosis. 2. Moderate postvoid residual in the urinary bladder of 170 mL. 3. Right renal cysts measuring up to 4.3 cm. 4. Borderline prostatomegaly. Correlate with PSA levels.
[2025-08-19] VITALS: BP 135/77; PULSE 68; RESP 17; TEMP 36.5; O2SAT 97
[2025-08-19 04:00] VITALS: BP 113/61; PULSE 67; RESP 17; TEMP 36.6; O2SAT 96
[2025-08-19 05:20] LABS: Hematocrit 36.9 % (37-53); Hemoglobin 12.00 g/dL (11.27-16.99); Mean Corpuscular HGB Conc 32.5 g/dL (30-55); Mean Corpuscular Hemoglobin 29.4 pg (27-33); Mean Corpuscular Volume 90.4 fl (82-101); Nucleated Red Blood Cells % 0 %; Platelet Count 128 10^3/cmm (157-399); Red Blood Count 4.08 10^6/uL (3.85-5.65); White Blood Count 3.81 10^3/uL (3.29-11.43)
[2025-08-19 05:50] LABS: Alanine Aminotransferase 7 U/L (0-41); Albumin Level 3.5 g/dL (3.5-5.2); Alkaline Phosphatase 63 U/L (40-130); Anion Gap 14.2 (5-19); Aspartate Amino Transferase 14 U/L (0-40); Blood Urea Nitrogen 27 mg/dL (8-23); Calcium 8.6 mg/dL (8.5-10.5); Carbon Dioxide 18 mmol/L (22-29); Chloride 109 mmol/L (98-107); Creatinine Clr Calc Pharmacy 50.8444; Globulin 2.4 g/dL (1.3-4.6); Glucose 98 mg/dL (65-115); Osmolality Calculated 289 mOsm/kg (285-295); Potassium 4.2 mmol/L (3.5-5.1); Sodium 137 mmol/L (136-145); Total Protein 5.9 g/dL (6.6-8.7)
[2025-08-19 07:32] VITALS: BP 132/68; PULSE 70; RESP 19; TEMP 36.3; O2SAT 99
[2025-08-19 09:08] VITALS: BP 101/51; BP 111/66; BP 113/67; PULSE 69; PULSE 78; PULSE 80
[2025-08-19 11:01] VITALS: BP 110/50; PULSE 50; RESP 19; TEMP 36.4; O2SAT 93
--- NOTE | 2025-08-19 12:33 | P.DS_ITS ---
Discharge Providers Date of Admission: 08/17/25 20:18 Date of Discharge: August 19, 2025 Attending Provider at Admission: Sincere Garcia MD Attending Provider at Discharge: Senthil Devries MD Primary Care Provider: Nina Baldwin NP Diagnoses at Discharge Discharge Diagnosis 1. Hyperkalemia: 2. SYLVIA (acute kidney injury): 3. Pneumonia: 4. Primary hypertension: 5. Atrial fibrillation with rapid ventricular response: 6. Hyperlipidemia: 7. CHF NYHA class III (symptoms with mildly strenuous activities): 8. JOSIE (obstructive sleep apnea): 9. Diabetes mellitus type 2 in obese: 10. Pulmonary embolism: Reason for Visit Reason for Visit: SOB / Weakness Hospital Course Hospital Course This is a 74-year-old male with a past medical history of atrial fibrillation, history of prostate cancer, type 2 diabetes mellitus, who presents to [facility] for shortness of breath Patient was admitted to [facility] for shortness of breath - Likely multifactorial from A-fib with RVR - Combination of moderate aortic valve stenosis - During his hospitalization he had episodes of A-fib with RVR heart rates into the 120s with exertion, metoprolol dose was increased to 75 mg twice daily - Patient had an echocardiogramNormal left ventricular size and systolic function, EF 77%. Moderate concentric left ventricular hypertrophy.Grade III/IV diastolic dysfunction (restrictive filling pattern), severely elevated filling pressures. Moderate aortic valve stenosis, mean gradient 24.9 mmHg, SAMUEL 1.04 cm squared. Peak velocity of 3.04 m/s. Moderate aortic valve calcification.Trace aortic valve regurgitation. Mild mitral annular calcification. Trace tricuspid valve regurgitation. - Discussed his moderate aortic stenosis, and potentially LVH playing a role - Discharged with an event monitor in place - Metoprolol 75 twice daily - Follow-up with cardiology - Referral sent for consideration of aortic valve replacement Patient was admitted to [facility] for hyperkalemia likely secondary to SYLVIA with potassium replacement therapy that he takes at home - Hyperkalemia resolved, potassium dose decreased on discharge For SYLVIA on CKD, likely secondary from prerenal, creatinine improved with IV fluids, creatinine 1.7 on discharge Patient was advised if he has any shortness of breath or chest pain to immediately come back to the emergency room Physical Exam Const: COMMON NORMALS: no acute distress and patient oriented x3 Resp: COMMON NORMALS: normal respiratory effort, No retractions, No use of accessory muscles and clear to auscultation bilaterally AUSCULTATION: clear to auscultation bilaterally Cardio: COMMON NORMALS: regular rate, regular rhythm, S1 normal heart sound present and S2 normal heart sound present RATE: regular rate RHYTHM: regular rhythm HEART SOUNDS: S1 normal heart sound present and S2 normal heart sound present GI: COMMON NORMALS: Normal to inspection, nondistended, normoactive bowel sounds present and non-tender Extremity: COMMON NORMALS: no calf tenderness and no pedal edema Neuro: COMMON NORMALS: patient oriented x3, CN's II-XII intact bilaterally and moves all extremities Psych: COMMON NORMALS: mental status grossly normal Discharge Data Studies Completed and Pending Completed Studies During Hospitalization Category Date Time Status CT chest wo con [id number] Stat Cat Scan 08/17/25 20:22 Completed XR chest 1V portable [id number] Stat Exams 08/17/25 15:55 [place] [id number] Routine Ultrasound 08/18/25 10:09 Completed CV. echo complete* [id number] Routine Ultrasound 08/18/25 10:09 Completed US renal BI w/PV bladder [id number] Stat Ultrasound 08/18/25 22:25 Completed Pending at discharge Category Date Time Status Blood Culture Stat Lab 08/17/25 20:32 Received Complete Blood Count w/Auto AM LABS Lab 08/20/25 04:00 Ordered Complete Blood Count w/Auto AM LABS Lab 08/21/25 04:00 Ordered Comprehensive Metabolic Panel AM LABS Lab 08/20/25 04:00 Ordered Comprehensive Metabolic Panel AM LABS Lab 08/21/25 04:00 Ordered Sputum Culture and Gram Stain Routine Lab 08/17/25 22:30 Uncollected Urinalysis Stat Lab 08/19/25 11:20 Uncollected Radiology Impressions Chest X-Ray 08/17/25 15:55 IMPRESSION: No acute cardiopulmonary findings. Chest CT 08/17/25 20:22 IMPRESSION: 1. There is distal esophageal thickening. Findings may represent esophagitis. Correlation with endoscopy may be helpful. 2. Indeterminate hyperdense cortical lesions in the right kidney measuring up to 3 cm. Nonemergent evaluation with ultrasound is recommended for further characterization. COMMENTS: Consistent with the [employer]'s Incidental Findings Committee white paper (J Am Aaliyah Radiol 2018): Any incidental renal lesion less than 1 cm or classified as too small to characterize, or any incidental cystic renal lesion characterized as simple-appearing, is likely benign. No follow-up imaging is recommended for these lesions per consensus recommendations based on imaging criteria. Venous Duplex 08/18/25 10:09 IMPRESSION: No sonographic evidence of deep venous thrombosis. Renal Ultrasound 08/18/25 22:25 IMPRESSION: 1. No hydronephrosis. 2. Moderate postvoid residual in the urinary bladder of 170 mL. 3. Right renal cysts measuring up to 4.3 cm. 4. Borderline prostatomegaly. Correlate with PSA levels. Laboratory Results WBC 3.81 10^3/uL (3.29-11.43) 08/19/25 04:10 RBC 4.08 10^6/uL (3.85-5.65) 08/19/25 04:10 Hgb 12.00 g/dL (11.27-16.99) 08/19/25 04:10 Hct 36.9 % (37-53) L 08/19/25 04:10 MCV 90.4 fl (82-101) 08/19/25 04:10 MCH 29.4 pg (27-33) 08/19/25 04:10 MCHC 32.5 g/dL (30-55) 08/19/25 04:10 RDW 14.1 % (12.1-15.1) 08/19/25 04:10 Plt Count 128 10^3/cmm (157-399) L 08/19/25 04:10 MPV 12.6 fL (7.4-10.4) H 08/19/25 04:10 Neut % (Auto) 64.6 % 08/19/25 04:10 Lymph % (Auto) 20.2 % 08/19/25 04:10 Gregg % (Auto) 9.2 % 08/19/25 04:10 Eos % (Auto) 5.0 % 08/19/25 04:10 Baso % (Auto) 0.5 % 08/19/25 04:10 Neut # (Auto) 2.46 10^3/uL (1.8-7.7) 08/19/25 04:10 Lymph # (Auto) 0.8 10^3/uL (0.8-4.8) 08/19/25 04:10 Gregg # (Auto) 0.4 10^3/uL (0.2-0.9) 08/19/25 04:10 Eos # (Auto) 0.2 10^3/uL (0.0-0.8) 08/19/25 04:10 Baso # (Auto) 0.0 10^3/uL (0.0-0.1) 08/19/25 04:10 Nucleated RBC % (auto) 0 % 08/19/25 04:10 Nucleated RBCs # 0.0 /100WBC 08/19/25 04:10 PT 23.50 SECONDS (12.1-14.9) H 08/17/25 16:09 INR 1.96 (0.8-1.2) H 08/17/25 16:09 APTT 47.5 SECONDS (23.9-36.7) H 08/17/25 16:09 D-Dimer 0.29 ug/mLFEU (0-0.59) 08/17/25 16:09 Specimen Type Arterial 08/17/25 16:27 Sample Site Radial, right 08/17/25 16:27 ABG pH 7.44 (7.35-7.45) 08/17/25 16:27 ABG pCO2 22.1 mmHg (35-45) L 08/17/25 16:27 ABG pO2 98.2 mmHg (80.0-100.0) 08/17/25 16:27 ABG PO2/FiO2 Ratio 467 08/17/25 16:27 ABG HCO3 15.1 mmol/L (22-26) L 08/17/25 16:27 ABG Base Excess -6.8 mmol/L (-2.0-2.0) L 08/17/25 16:27 Antonio Test Pos 08/17/25 16:27 Hematocrit 42.6 % (42-52) 08/17/25 16:27 Hgb O2 Saturation 97.0 % (95-100) 08/17/25 16:27 Carboxyhemoglobin 1.0 %THgb (0.4-20.1) 08/17/25 16:27 Methemoglobin 0.8 % (0.4-1.5) 08/17/25 16:27 Total Hemoglobin 13.9 g/dL (14-18) L 08/17/25 16:27 O2 Delivery Device Room air 08/17/25 16:27 FiO2 21.0 % 08/17/25 16:27 Director Of Exhibit Development ID Dennis 08/17/25 16:27 Sodium 137 mmol/L (136-145) 08/19/25 04:10 Potassium 4.2 mmol/L (3.5-5.1) 08/19/25 04:10 Chloride 109 mmol/L (98-107) H 08/19/25 04:10 Carbon Dioxide 18 mmol/L (22-29) L 08/19/25 04:10 Anion Gap 14.2 (5-19) 08/19/25 04:10 BUN 27 mg/dL (8-23) H 08/19/25 04:10 Creatinine 1.7 mg/dL (0.7-1.2) H 08/19/25 04:10 GFR Calculation Not Reportable 08/19/25 04:10 Glucose 98 mg/dL (65-115) 08/19/25 04:10 POC Glucose 109 mg/dL (70-110) 08/19/25 10:30 Calculated Osmolality 289 mOsm/kg (285-295) 08/19/25 04:10 Lactate 1.2 mmol/L (0.5-2.2) 08/18/25 15:09 Calcium 8.6 mg/dL (8.5-10.5) 08/19/25 04:10 Phosphorus 3.7 mg/dL (2.5-4.5) 08/17/25 22:15 Total Bilirubin 0.2 mg/dL (0.15-1.2) 08/19/25 04:10 AST 14 U/L (0-40) 08/19/25 04:10 ALT 7 U/L (0-41) 08/19/25 04:10 Alkaline Phosphatase 63 U/L (40-130) 08/19/25 04:10 Creatine Kinase 65 U/L (39-308) 08/17/25 17:45 Troponin T Baseline 30 ng/L (0-15) H 08/17/25 16:09 Troponin T 120 Minute 31.19 ng/L (0-15) H 08/17/25 17:45 Delta Troponin T 1.19 ABS# (0-10) 08/17/25 17:45 Troponin T Hi Sens 6Hr 28.78 ng/L (0-15) H 08/17/25 22:15 Troponin T Hi Sens 6Hr Delta -1.22 ng/L (0-12) L 08/17/25 22:15 C-Reactive Protein 3.0 mg/L (0.0-4.9) 08/18/25 04:14 NT-Pro-B Natriuret Pep 131 pg/mL (0-125) H 08/17/25 16:09 Total Protein 5.9 g/dL (6.6-8.7) L 08/19/25 04:10 Albumin 3.5 g/dL (3.5-5.2) 08/19/25 04:10 Globulin 2.4 g/dL (1.3-4.6) 08/19/25 04:10 Procalcitonin 0.06 ng/mL (0-0.5) 08/18/25 04:14 TSH 5.34 uIU/mL (0.27-4.20) H 08/17/25 16:09 Free T4 1.07 ng/dL (0.82-1.77) 08/17/25 16:09 PTH Intact 75.3 pg/mL (15-65) H 08/17/25 16:09 Calcium (PTH Intact) 9.5 mg/dL (8.5-10.5) 08/17/25 16:09 Ur Random Microalbumin 1 ug/dL (0-20) 08/17/25 20:25 U Random Total Protein 4 mg/dL 08/17/25 20:25 Urine Creatinine 66 mg/dL (39-259) 08/17/25 20:25 Microalb/Creat Ratio 15 mg/dL (0-20) 08/17/25 20:25 Adenovirus (PCR) Not detected (NOT DETECT) 08/17/25 16:30 C. pneumoniae DNA (PCR) Not detected (NOT DETECT) 08/17/25 16:30 Coronavirus 229E (PCR) Not detected (NOT DETECT) 08/17/25 16:30 Human Metapneumovir PCR Not detected (NOT DETECT) 08/17/25 16:30 Influenza A (H1) PCR Not detected (NOT DETECT) 08/17/25 16:30 Influenza A (PCR) Negative (Negative) 08/17/25 16:30 Influ A (H1/09) PCR Not detected (NOT DETECT) 08/17/25 16:30 Influenza A (H3) PCR Not detected (NOT DETECT) 08/17/25 16:30 Influenza Type A (PCR) Not detected (NOT DETECT) 08/17/25 16:30 Influenza Type B (PCR) Negative (Negative) 08/17/25 16:30 Influenza Type B (PCR) Not detected (NOT DETECT) 08/17/25 16:30 M. pneumoniae (PCR) Not detected (NOT DETECT) 08/17/25 16:30 Parainfluenza 1 (PCR) Not detected (NOT DETECT) 08/17/25 16:30 Parainfluenza 2 (PCR) Not detected (NOT DETECT) 08/17/25 16:30 Parainfluenza 3 (PCR) Not detected (NOT DETECT) 08/17/25 16:30 Parainfluenza 4 (PCR) Not detected (NOT DETECT) 08/17/25 16:30 RSV (PCR) Negative (Negative) 08/17/25 16:30 RSV Type A (PCR) Not detected (NOT DETECT) 08/17/25 16:30 RSV Type B (PCR) Not detected (NOT DETECT) 08/17/25 16:30 Entero/Rhino (PCR) Not detected (NOT DETECT) 08/17/25 16:30 SARS-CoV-2 (PCR) Negative (Negative) 08/17/25 16:30 SARS-CoV-2 (PCR) Not detected (NOT DETECT) 08/17/25 16:30 Vitals Last Vital Signs Temp 97.5 F L 08/19/25 11:01 Pulse 50 L 08/19/25 11:01 Resp 19 H 08/19/25 11:01 BP 110/50 08/19/25 11:01 Pulse Ox 93 08/19/25 11:01 O2 Del Method Room Air 08/19/25 11:01 Discharge Plan Discharge Patient Disposition: Home Condition: Stable Prescriptions: New metoprolol tartrate 50 mg Tablet 75 mg PO BID@0900,2100 30 Days Qty: 90 0RF Continued Xarelto 20 mg tablet 20 mg PO BEDTIME Qty: 90 3RF hydralazine 10 mg tablet See Rx Instructions .ROUTE .COMPLEX Qty: 90 3RF Dose Instruction: TAKE ONE TABLET BY MOUTH THREE TIMES DAILY Rx Instructions: TAKE ONE TABLET BY MOUTH THREE TIMES DAILY spironolactone 25 mg tablet See Rx Instructions .ROUTE .COMPLEX Qty: 90 3RF Dose Instruction: TAKE ONE TABLET BY MOUTH DAILY Rx Instructions: TAKE ONE TABLET BY MOUTH DAILY losartan 100 mg tablet See Rx Instructions .ROUTE .COMPLEX Qty: 90 3RF Dose Instruction: TAKE ONE TABLET BY MOUTH DAILY Rx Instructions: TAKE ONE TABLET BY MOUTH DAILY multivitamin Tablet 1 tab PO DAILY Qty: 0 donepezil 10 mg tablet 10 mg PO BEDTIME simvastatin 40 mg tablet 40 mg PO BEDTIME gemfibrozil 600 mg tablet 600 mg PO BID allopurinol 300 mg tablet 300 mg PO DAILY fluoxetine 20 mg capsule 20 mg PO DAILY Ozempic 1 mg/dose (4 mg/3 mL) pen injector 1 mg SUBCUT Q7D Changed potassium chloride 20 mEq tablet,ER particles/crystals 20 meq PO DAILY 30 Days Qty: 270 3RF Rx Instructions: 20 mEq orally; Discontinued amlodipine 10 mg tablet 10 mg PO DAILY Qty: 90 3RF metoprolol tartrate 50 mg tablet 50 mg PO BID Other Ambulatory Orders: MCT/Event Monitor 30 Days (Routine) Timeframe: 1 Day Facility: [facility] - Location: Radiology Ordered By: Senthil Devries Referrals: Nina Baldwin NP [Primary Care Provider, Unknown] Referral Note: Please call your primary care provider on Wednesday to make a hospital discharge appointment in 4-7 days. Shira Yancey MD [Physician, Cardiology] - 1-3 days Mason Zarco MD [Referring, Cardiovascular/Thoracic Surg] - 4-7 days Patient Instructions: Opioid Safety, Patient Portal & Maryjo Instructions Activity Restrictions/Additional Instructions: - Your creatinine on discharge was 1.7 - Please follow-up with Dr. Yancey in 1 week - For atrial fibrillation/flutter please wear event monitor - If any chest pain or palpitations go to the emergency room - Please follow-up with [facility] surgery in 1 month for aortic valve Discharge Attestations Time Spent in Discharge Care*: greater than 30 min Quality Metrics Clinical Quality Measures [ No reported AMI, CVA or VTE this stay] Coding Level of Care Code Acute Code for Chg Fwd Diagnoses Hyperkalemia E87.5 SYLVIA (acute kidney injury) N17.9 Pneumonia J18.9 Primary hypertension I10 Hypertension type: primary hypertension Atrial fibrillation with rapid ventricular response I48.91 Hyperlipidemia E78.5 CHF NYHA class III (symptoms with mildly strenuous activities) I50.9 JOSIE (obstructive sleep apnea) G47.33 Diabetes mellitus type 2 in obese E11.69; E66.9 Pulmonary embolism I26.99
[2025-08-19 12:45] LABS: Glucose Urine UA Negative (Normal); Nitrate Urine Negative (Negative); Specific Gravity, Urine 1.015 (1.005-1.030)
[2025-08-19 12:50] LABS: Add Urine Microscopic? YES
== END 2025-08-19 13:45 | disposition home or self-care (01) | DRG 641 ==
LOC: ER 21:53 → MEDSURG 22:38
PROVIDERS: Student in an Organized Health Care Education/Training Program; Admitting Provider Student in an Organized Health Care Education/Training Program; Emergency Provider Emergency Medicine; PCP Nurse Practitioner Family; Visit Provider Family Medicine
DX: E87.5 Hyperkalemia (principal); N17.9 Acute kidney failure, unspecified; I13.0 Hypertensive heart and chronic kidney disease with heart failure and stage 1 through stage 4 chronic kidney disease, or unspecified chronic kidney disease; I48.92 Unspecified atrial flutter; N18.9 Chronic kidney disease, unspecified; I48.91 Unspecified atrial fibrillation; E78.5 Hyperlipidemia, unspecified; G47.33 Obstructive sleep apnea (adult) (pediatric); E11.22 Type 2 diabetes mellitus with diabetic chronic kidney disease; E66.9 Obesity, unspecified; Z68.33 Body mass index [BMI] 33.0-33.9, adult; I35.0 Nonrheumatic aortic (valve) stenosis; M10.9 Gout, unspecified; Z87.891 Personal history of nicotine dependence; Z79.01 Long term (current) use of anticoagulants; Z79.85 Long-term (current) use of injectable non-insulin antidiabetic drugs; Z86.711 Personal history of pulmonary embolism; Z87.01 Personal history of pneumonia (recurrent); Z85.46 Personal history of malignant neoplasm of prostate; Z92.3 Personal history of irradiation
CPT/HCPCS: 36415; 36416; 36600; 71045; 71250; 76770; 76857; 80048; 80053; 81001; 82044; 82310; 82550; 82805; 82962; 83605; 83880; 83970; 84100; 84132; 84145; 84156; 84439; 84443; 84484; 85025; 85378; 85610; 85730; 86140; 87040; 87086; 87486; 87581; 87633; 87637; 93005; 93306; 93970; 94640; 96365; 96372; 96375; 99285; J0456; J0612; J0696; J1644; J1815; J3490; J7030; J7050; J7613; J7799; J9999

== ENCOUNTER → 2025-09-12 15:58 | Outpatient (BNVA) | payer MEDICARE, SELFPAY | PROVIDERS: PCP Nurse Practitioner Family; Visit Provider Nurse Practitioner Family | DX: Z51.89 Encounter for other specified aftercare (principal); I48.20 Chronic atrial fibrillation, unspecified; Z79.01 Long term (current) use of anticoagulants; Z98.890 Other specified postprocedural states; I35.0 Nonrheumatic aortic (valve) stenosis; I10 Essential (primary) hypertension; E78.5 Hyperlipidemia, unspecified; Z86.711 Personal history of pulmonary embolism; E11.9 Type 2 diabetes mellitus without complications; Z79.85 Long-term (current) use of injectable non-insulin antidiabetic drugs; G47.33 Obstructive sleep apnea (adult) (pediatric); E66.9 Obesity, unspecified; Z87.891 Personal history of nicotine dependence | CPT/HCPCS: 99214 ==